=== PATIENT | male | born 1980 | race Caucasian/White ===

== ENCOUNTER 2017-03-09 16:35 | Inpatient (IN) | payer MEDICARE, OTHER ==
[2017-03-09] MEDS: Gabapentin 300 MG CAP PO SCH (20:26)
[2017-03-09] MEDS: Zolpidem Tartrate 5 MG TAB PO SCH (20:26)
[2017-03-09] MEDS: METHADONE HCL PO SCH (20:27)
[2017-03-10] MEDS: METHADONE HCL PO SCH ×4 (03:09→21:11)
[2017-03-10] MEDS: Gabapentin 300 MG CAP PO SCH ×3 (09:42→21:12)
[2017-03-10] MEDS ORDERED: Loratadine 10 MG TAB PO PRN (17:57)
[2017-03-10] MEDS: Zolpidem Tartrate 5 MG TAB PO SCH (21:12)
[2017-03-11] MEDS: METHADONE HCL PO SCH ×4 (03:05→20:09)
[2017-03-11] MEDS: Gabapentin 300 MG CAP PO SCH ×3 (09:03→20:09)
[2017-03-11] MEDS: Zolpidem Tartrate 5 MG TAB PO SCH (20:09)
[2017-03-12] MEDS: METHADONE HCL PO SCH ×4 (02:47→21:08)
[2017-03-12] MEDS: Gabapentin 300 MG CAP PO SCH ×3 (09:26→21:08)
[2017-03-12] MEDS: Zolpidem Tartrate 5 MG TAB PO SCH (21:08)
[2017-03-12] MEDS: Acetaminophen 325 MG TAB PO PRN (22:55)
[2017-03-13] MEDS: METHADONE HCL PO SCH ×4 (03:11→20:58)
[2017-03-13] MEDS: Gabapentin 300 MG CAP PO SCH ×3 (08:06→20:50)
[2017-03-13] MEDS: Acetaminophen 325 MG TAB PO PRN (08:07)
[2017-03-13] MEDS: Saccharomyces boulardii 250 MG CAP PO SCH (08:07)
[2017-03-13] MEDS: Ondansetron ODT 4 MG TAB PO PRN (09:51)
[2017-03-13] MEDS: Zolpidem Tartrate 5 MG TAB PO SCH (20:50)
[2017-03-14] MEDS: METHADONE HCL PO SCH ×4 (02:59→21:04)
[2017-03-14] MEDS: Saccharomyces boulardii 250 MG CAP PO SCH (08:44)
[2017-03-14] MEDS: Gabapentin 300 MG CAP PO SCH ×3 (08:44→21:04)
[2017-03-14] MEDS: Ibuprofen 200 MG TAB PO PRN (13:19)
[2017-03-14] MEDS: Venlafaxine HCl 25 MG TAB PO SCH ×2 (14:25→21:04)
[2017-03-14] MEDS: Zolpidem Tartrate 5 MG TAB PO SCH (21:05)
[2017-03-15] MEDS: METHADONE HCL PO SCH ×4 (03:01→21:59)
[2017-03-15] MEDS: Gabapentin 300 MG CAP PO SCH ×3 (08:59→22:00)
[2017-03-15] MEDS: Saccharomyces boulardii 250 MG CAP PO SCH (09:00)
[2017-03-15] MEDS: Venlafaxine HCl 25 MG TAB PO SCH ×3 (09:00→22:00)
[2017-03-15] MEDS: Zolpidem Tartrate 5 MG TAB PO SCH (21:59)
[2017-03-16] MEDS: Ibuprofen 200 MG TAB PO PRN ×2 (00:07→23:36)
[2017-03-16] MEDS: METHADONE HCL PO SCH ×4 (02:14→20:36)
[2017-03-16] MEDS: Gabapentin 300 MG CAP PO SCH ×3 (09:32→20:36)
[2017-03-16] MEDS: Venlafaxine HCl 25 MG TAB PO SCH ×3 (09:33→20:36)
[2017-03-16] MEDS: Saccharomyces boulardii 250 MG CAP PO SCH (09:34)
[2017-03-16] MEDS: Zolpidem Tartrate 5 MG TAB PO SCH (20:36)
[2017-03-17] MEDS: METHADONE HCL PO SCH ×4 (03:13→20:34)
[2017-03-17] MEDS: Gabapentin 300 MG CAP PO SCH ×3 (09:00→20:34)
[2017-03-17] MEDS: Saccharomyces boulardii 250 MG CAP PO SCH (09:01)
[2017-03-17] MEDS: Venlafaxine HCl 25 MG TAB PO SCH ×3 (09:01→20:34)
[2017-03-17] MEDS: Zolpidem Tartrate 5 MG TAB PO SCH (20:34)
[2017-03-18] MEDS: METHADONE HCL PO SCH ×4 (02:58→20:34)
[2017-03-18] MEDS: Venlafaxine HCl 25 MG TAB PO SCH ×3 (10:02→20:33)
[2017-03-18] MEDS: Gabapentin 300 MG CAP PO SCH ×3 (10:02→20:34)
[2017-03-18] MEDS: Saccharomyces boulardii 250 MG CAP PO SCH (10:02)
[2017-03-18] MEDS: Zolpidem Tartrate 5 MG TAB PO SCH (20:30)
[2017-03-19] MEDS: ALPRAZolam 0.5 MG TAB PO PRN ×2 (00:32→23:13)
[2017-03-19] MEDS: METHADONE HCL PO SCH ×4 (03:10→21:25)
[2017-03-19] MEDS: Gabapentin 300 MG CAP PO SCH ×3 (08:42→21:28)
[2017-03-19] MEDS: Saccharomyces boulardii 250 MG CAP PO SCH (08:43)
[2017-03-19] MEDS: Venlafaxine HCl 25 MG TAB PO SCH ×3 (08:43→21:25)
[2017-03-19] MEDS: Ibuprofen 200 MG TAB PO PRN (18:33)
[2017-03-19] MEDS: Zolpidem Tartrate 5 MG TAB PO SCH (21:26)
[2017-03-20] MEDS: METHADONE HCL PO SCH ×4 (03:04→21:41)
[2017-03-20] MEDS: Saccharomyces boulardii 250 MG CAP PO SCH (08:10)
[2017-03-20] MEDS: Venlafaxine HCl 25 MG TAB PO SCH ×3 (08:11→21:41)
[2017-03-20] MEDS: Gabapentin 300 MG CAP PO SCH ×3 (08:11→21:41)
[2017-03-20] MEDS: ALPRAZolam 0.5 MG TAB PO PRN (16:51)
[2017-03-20] MEDS: Zolpidem Tartrate 5 MG TAB PO SCH (21:41)
[2017-03-21] MEDS: METHADONE HCL PO SCH ×4 (03:29→21:12)
[2017-03-21] MEDS: Gabapentin 300 MG CAP PO SCH ×3 (08:49→21:14)
[2017-03-21] MEDS: Venlafaxine HCl 25 MG TAB PO SCH ×3 (08:49→21:13)
[2017-03-21] MEDS: Saccharomyces boulardii 250 MG CAP PO SCH (08:49)
[2017-03-21] MEDS: ALPRAZolam 0.5 MG TAB PO PRN ×2 (11:49→22:35)
[2017-03-21] MEDS: Zolpidem Tartrate 5 MG TAB PO SCH (21:14)
[2017-03-21] MEDS: Ibuprofen 200 MG TAB PO PRN (23:36)
[2017-03-22] MEDS: METHADONE HCL PO SCH ×4 (03:18→20:47)
[2017-03-22] MEDS: Ondansetron ODT 4 MG TAB PO PRN (06:29)
[2017-03-22] MEDS: Saccharomyces boulardii 250 MG CAP PO SCH (08:57)
[2017-03-22] MEDS: Venlafaxine HCl 25 MG TAB PO SCH ×3 (08:57→20:47)
[2017-03-22] MEDS: Gabapentin 300 MG CAP PO SCH ×3 (08:58→20:47)
[2017-03-22] MEDS: ALPRAZolam 0.5 MG TAB PO PRN ×2 (09:06→15:59)
[2017-03-22] MEDS: Zolpidem Tartrate 5 MG TAB PO SCH (20:47)
[2017-03-23] MEDS: METHADONE HCL PO SCH ×4 (02:32→20:33)
[2017-03-23] MEDS: ALPRAZolam 0.5 MG TAB PO PRN ×3 (05:32→20:35)
[2017-03-23] MEDS: Saccharomyces boulardii 250 MG CAP PO SCH (09:33)
[2017-03-23] MEDS: Venlafaxine HCl 25 MG TAB PO SCH ×3 (09:33→20:34)
[2017-03-23] MEDS: Gabapentin 300 MG CAP PO SCH ×3 (09:34→20:34)
[2017-03-23] MEDS: Zolpidem Tartrate 5 MG TAB PO SCH (20:34)
[2017-03-24] MEDS: METHADONE HCL PO SCH ×4 (02:56→20:22)
[2017-03-24] MEDS: Gabapentin 300 MG CAP PO SCH ×3 (09:01→20:23)
[2017-03-24] MEDS: Venlafaxine HCl 25 MG TAB PO SCH ×3 (09:02→20:22)
[2017-03-24] MEDS: Saccharomyces boulardii 250 MG CAP PO SCH (09:02)
[2017-03-24] MEDS: ALPRAZolam 0.5 MG TAB PO PRN ×2 (09:08→20:22)
[2017-03-24] MEDS: Zolpidem Tartrate 5 MG TAB PO SCH (20:22)
[2017-03-25] MEDS: METHADONE HCL PO SCH ×5 (02:54→20:30)
[2017-03-25] MEDS: Gabapentin 300 MG CAP PO SCH ×3 (09:00→20:30)
[2017-03-25] MEDS: Venlafaxine HCl 25 MG TAB PO SCH ×3 (09:00→20:30)
[2017-03-25] MEDS: Saccharomyces boulardii 250 MG CAP PO SCH (09:01)
[2017-03-25] MEDS: ALPRAZolam 0.5 MG TAB PO PRN ×3 (09:04→20:30)
[2017-03-25] MEDS: Ibuprofen 200 MG TAB PO PRN (15:47)
[2017-03-25] MEDS: Zolpidem Tartrate 5 MG TAB PO SCH (20:31)
[2017-03-26] MEDS: METHADONE HCL PO SCH ×4 (02:55→20:40)
[2017-03-26] MEDS: Ibuprofen 200 MG TAB PO PRN ×3 (03:37→22:27)
[2017-03-26] MEDS: Saccharomyces boulardii 250 MG CAP PO SCH (09:47)
[2017-03-26] MEDS: Gabapentin 300 MG CAP PO SCH ×3 (09:48→20:43)
[2017-03-26] MEDS: Venlafaxine HCl 25 MG TAB PO SCH ×3 (09:48→20:41)
[2017-03-26] MEDS: ALPRAZolam 0.5 MG TAB PO PRN ×2 (09:53→14:58)
[2017-03-26] MEDS: Zolpidem Tartrate 5 MG TAB PO SCH (20:41)
[2017-03-26] MEDS: tiZANidine HCl 4 MG TAB PO PRN (22:27)
[2017-03-27] MEDS: METHADONE HCL PO SCH ×4 (02:46→21:34)
[2017-03-27] MEDS: Gabapentin 300 MG CAP PO SCH ×3 (07:48→20:21)
[2017-03-27] MEDS: tiZANidine HCl 4 MG TAB PO PRN ×2 (07:49→17:10)
[2017-03-27] MEDS: Venlafaxine HCl 25 MG TAB PO SCH ×3 (07:49→20:21)
[2017-03-27] MEDS: Saccharomyces boulardii 250 MG CAP PO SCH (07:49)
[2017-03-27] MEDS: Ibuprofen 200 MG TAB PO PRN ×2 (10:13→22:14)
[2017-03-27] MEDS: ALPRAZolam 0.5 MG TAB PO PRN (11:58)
[2017-03-27] MEDS: Zolpidem Tartrate 5 MG TAB PO SCH (20:20)
[2017-03-27] MEDS: Acetaminophen 325 MG TAB PO PRN (20:22)
[2017-03-28] MEDS: METHADONE HCL PO SCH ×4 (03:02→20:26)
[2017-03-28] MEDS: ALPRAZolam 0.5 MG TAB PO PRN ×2 (03:02→20:27)
[2017-03-28] MEDS: Venlafaxine HCl 25 MG TAB PO SCH ×3 (09:11→20:26)
[2017-03-28] MEDS: Saccharomyces boulardii 250 MG CAP PO SCH (09:12)
[2017-03-28] MEDS: Gabapentin 300 MG CAP PO SCH ×3 (09:12→20:27)
[2017-03-28] MEDS: tiZANidine HCl 4 MG TAB PO PRN ×2 (09:16→17:26)
[2017-03-28] MEDS: Ibuprofen 200 MG TAB PO PRN ×2 (11:48→23:44)
[2017-03-28] MEDS: Zolpidem Tartrate 5 MG TAB PO SCH (20:27)
[2017-03-29] MEDS: METHADONE HCL PO SCH ×4 (02:24→20:52)
[2017-03-29] MEDS: tiZANidine HCl 4 MG TAB PO PRN ×3 (02:25→23:42)
[2017-03-29] MEDS: Gabapentin 300 MG CAP PO SCH ×3 (09:01→20:52)
[2017-03-29] MEDS: Saccharomyces boulardii 250 MG CAP PO SCH (09:01)
[2017-03-29] MEDS: Venlafaxine HCl 25 MG TAB PO SCH ×3 (09:01→20:52)
[2017-03-29] MEDS: ALPRAZolam 0.5 MG TAB PO PRN ×3 (09:02→20:52)
[2017-03-29] MEDS: Acetaminophen 325 MG TAB PO PRN (12:37)
[2017-03-29] MEDS: Ibuprofen 200 MG TAB PO PRN (17:44)
[2017-03-29] MEDS: Zolpidem Tartrate 5 MG TAB PO SCH (20:52)
--- NOTE | 2017-03-29 23:24 | HP ---
DATE OF ADMISSION: 03/09/2017 CHIEF COMPLAINT: Stage IV decubitus sacral ulcer. HISTORY OF PRESENT ILLNESS: A 36-year-old paraplegic male who was admitted and treated at [facility] in [place] for sepsis secondary to urinary tract infection and recurrent sacral decubitus ulcer. He required IV antibiotics and consultation from both Infectious Disease and General Surgery. As the patient improved his antibiotics were transitioned from IV to p.o. and it was advised for him to continue treatment via wound VAC with no surgical debridement. Imaging revealed no concern for osteomyelitis. As noted, he has been transferred to our facility to have further wound care and wound VAC, which will be changed every Monday, Monday, Monday. He will need to complete a 1 week course of p.o. levofloxacin as directed. The patient typically self- catheterizes secondary to neurogenic bladder; however, we will continue Smith for his voiding control. At present, the patient reports to be doing fairly well overall with somewhat of decreased appetite; however, is afebrile and comfortable. He has good insight into his current swing bed admission with a family goal to achieve as much wound healing as possible secondary to the recurrent status of this sacral decubitus ulcers. PAST MEDICAL HISTORY: Lower extremity paraplegia, neuropathy, insomnia, anxiety , or depression. PAST SURGICAL HISTORY: Back surgery several years ago. FAMILY HISTORY: Noncontributory. SOCIAL HISTORY: Denies alcohol or illicit drug use. He does use a vape. ALLERGIES: None. CURRENT MEDICATIONS: Gabapentin 300 mg p.o. t.i.d., levofloxacin 750 mg p.o. daily x1 week, methadone 20 mg p.o. q.6 hours, venlafaxine 50 mg p.o. t.i.d., zolpidem 10 mg p.o. at bedtime. REVIEW OF SYSTEMS: General: Denies fever. Ear, Nose, and Throat: Denies sore throat, nasal drainage or congestion. Cardiovascular: Denies chest pain or palpitations. Respiratory: Denies shortness of breath or cough. Gastrointestinal: Denies abdominal pain, complains of nausea. Genitourinary: Denies hematuria. Musculoskeletal: Denies joint swelling. Dermatologic: Denies rash. Complains of chronic sacral decubitus ulcers. Neurologic: Denies headache. LABORATORY DATA: None pending. PHYSICAL EXAMINATION: VITAL SIGNS: 97.9, 97% RA, 16, 97, 107/72 GENERAL: The patient is alert and oriented, in no acute distress. FACE: No asymmetry. EYES: Conjunctivae are clear. Extraocular muscles are intact bilaterally with no discharge. HEENT: Within normal limits. Oral cavity moist mucous membranes. NECK/THYROID: Supple, full range of motion. No lymphadenopathy, no meningeal signs. CARDIOVASCULAR: Regular rate and rhythm. Normal S1, S2. No murmurs, rubs, or gallops. RESPIRATORY: Clear to auscultation bilaterally without wheezes, rales, or rhonchi. GASTROINTESTINAL: Soft, nontender to palpation, no organomegaly. EXTREMITIES: He has muscles wasting with atrophy to the bilateral lower extremities. GENITOURINARY: Smith is in place. SKIN: Stage IV sacral decubitus ulcers with clean and dry margins. NEUROLOGIC: Nonfocal with cranial nerves II-XII grossly intact. ASSESSMENT AND PLAN: 1. Stage IV sacral decubitus ulcers. Patient will be followed by wound care with placement of wound VAC and changes scheduled Monday, Monday, Monday. We will complete the specified course of Levaquin 750 mg p.o. daily x1 week. 2. Neurogenic bladder. We will continue Smith catheter. He typically self- caths at home. 3. Insomnia. We will continue zolpidem for this 4. anxiety, depression. We will continue the patient's SNRI and provide benzodiazepine therapy as needed. 4. Nausea. We will provide Zofran p.r.n. 5. Paraplegia. The patient is mobile with use of a wheelchair. CODE STATUS: FULL CODE. MTDD
[2017-03-30] MEDS: METHADONE HCL PO SCH ×3 (03:05→18:33)
[2017-03-30] MEDS: ALPRAZolam 0.5 MG TAB PO PRN ×3 (09:28→21:46)
[2017-03-30] MEDS: Saccharomyces boulardii 250 MG CAP PO SCH (09:28)
[2017-03-30] MEDS: Gabapentin 300 MG CAP PO SCH ×3 (09:28→20:15)
[2017-03-30] MEDS: Venlafaxine HCl 25 MG TAB PO SCH ×3 (09:29→20:16)
[2017-03-30] MEDS: tiZANidine HCl 4 MG TAB PO PRN (11:09)
[2017-03-30] MEDS ORDERED: METHadone HCl 10 MG TAB PO SCH (15:15)
[2017-03-30] MEDS: METHadone HCl 10 MG TAB PO SCH ×2 (15:40→20:15)
[2017-03-30] MEDS: Ibuprofen 200 MG TAB PO PRN (17:46)
[2017-03-30] MEDS: Zolpidem Tartrate 5 MG TAB PO SCH (20:17)
[2017-03-31] MEDS: METHadone HCl 10 MG TAB PO SCH ×4 (03:16→20:51)
[2017-03-31] MEDS: ALPRAZolam 0.5 MG TAB PO PRN ×4 (03:17→20:52)
[2017-03-31] MEDS: Gabapentin 300 MG CAP PO SCH ×3 (10:05→20:51)
[2017-03-31] MEDS: Saccharomyces boulardii 250 MG CAP PO SCH (10:07)
[2017-03-31] MEDS: Venlafaxine HCl 25 MG TAB PO SCH ×3 (10:07→20:52)
[2017-03-31] MEDS: tiZANidine HCl 4 MG TAB PO PRN ×3 (11:20→23:02)
[2017-03-31] MEDS: Zolpidem Tartrate 5 MG TAB PO SCH (20:53)
[2017-04-01] MEDS: ALPRAZolam 0.5 MG TAB PO PRN ×2 (03:10→21:15)
[2017-04-01] MEDS: METHadone HCl 10 MG TAB PO SCH ×4 (03:11→21:12)
[2017-04-01] MEDS: Venlafaxine HCl 25 MG TAB PO SCH ×3 (08:27→21:14)
[2017-04-01] MEDS: Gabapentin 300 MG CAP PO SCH ×3 (08:28→21:12)
[2017-04-01] MEDS: Saccharomyces boulardii 250 MG CAP PO SCH (08:28)
[2017-04-01] MEDS: Ondansetron ODT 4 MG TAB PO PRN (10:27)
[2017-04-01] MEDS: tiZANidine HCl 4 MG TAB PO PRN (17:07)
[2017-04-01] MEDS: Zolpidem Tartrate 5 MG TAB PO SCH (21:15)
[2017-04-01] MEDS: Ibuprofen 200 MG TAB PO PRN (23:18)
[2017-04-02] MEDS: tiZANidine HCl 4 MG TAB PO PRN ×2 (01:12→10:55)
[2017-04-02] MEDS: METHadone HCl 10 MG TAB PO SCH ×4 (03:00→20:32)
[2017-04-02] MEDS: Saccharomyces boulardii 250 MG CAP PO SCH (08:53)
[2017-04-02] MEDS: Gabapentin 300 MG CAP PO SCH ×3 (08:53→20:32)
[2017-04-02] MEDS: Venlafaxine HCl 25 MG TAB PO SCH ×3 (08:53→20:31)
[2017-04-02] MEDS: ALPRAZolam 0.5 MG TAB PO PRN ×2 (16:56→22:52)
[2017-04-02] MEDS: Zolpidem Tartrate 5 MG TAB PO SCH (20:33)
[2017-04-03] MEDS: METHadone HCl 10 MG TAB PO SCH ×4 (02:51→20:44)
[2017-04-03] MEDS: Gabapentin 300 MG CAP PO SCH ×3 (09:17→20:43)
[2017-04-03] MEDS: Saccharomyces boulardii 250 MG CAP PO SCH (09:18)
[2017-04-03] MEDS: Venlafaxine HCl 25 MG TAB PO SCH ×3 (09:18→20:40)
[2017-04-03] MEDS: ALPRAZolam 0.5 MG TAB PO PRN ×2 (09:19→23:03)
[2017-04-03 12:02] LABS: Bilirubin Negative (Negative); Blood, Urine Negative (Negative); Clarity Clear (Clear); Glucose, Urine (Dipstick) Negative (Negative); Leukocyte Small (Negative); Nitrite Negative (Negative); Protein, Urine (Dipstick) Negative (Neg-Trace); Urobilinogen 0.2 mg/dL (0.2-1.0)
[2017-04-03 12:09] LABS: Bacteria/HPF None Seen HPF (None Seen); RBC/HPF None Seen HPF (0-3); Squamous Epithelial 0-3 HPF (0-3); WBC/HPF 0-3 HPF (0-3)
[2017-04-03] MEDS: tiZANidine HCl 4 MG TAB PO PRN (18:54)
[2017-04-03] MEDS: Ciprofloxacin 500 MG TAB PO SCH (20:44)
[2017-04-03] MEDS: Zolpidem Tartrate 5 MG TAB PO SCH (20:44)
[2017-04-04] MEDS: METHadone HCl 10 MG TAB PO SCH ×4 (03:03→20:45)
[2017-04-04] MEDS: Ciprofloxacin 500 MG TAB PO SCH ×2 (05:38→20:44)
[2017-04-04] MEDS: Saccharomyces boulardii 250 MG CAP PO SCH (08:28)
[2017-04-04] MEDS: Gabapentin 300 MG CAP PO SCH ×3 (08:28→20:45)
[2017-04-04] MEDS: Venlafaxine HCl 25 MG TAB PO SCH ×3 (09:51→20:45)
[2017-04-04] MEDS: ALPRAZolam 0.5 MG TAB PO PRN ×2 (10:31→23:00)
[2017-04-04] MEDS: tiZANidine HCl 4 MG TAB PO PRN (13:37)
[2017-04-04] MEDS: Zolpidem Tartrate 5 MG TAB PO SCH (20:44)
[2017-04-05] MEDS: METHadone HCl 10 MG TAB PO SCH ×4 (03:09→20:49)
[2017-04-05] MEDS: Ciprofloxacin 500 MG TAB PO SCH (05:35)
[2017-04-05] MEDS: tiZANidine HCl 4 MG TAB PO PRN ×2 (05:35→17:19)
[2017-04-05] MEDS: Venlafaxine HCl 25 MG TAB PO SCH ×3 (09:06→20:50)
[2017-04-05] MEDS: Gabapentin 300 MG CAP PO SCH ×3 (09:06→20:53)
[2017-04-05] MEDS: Saccharomyces boulardii 250 MG CAP PO SCH (09:07)
[2017-04-05] MEDS: ALPRAZolam 0.5 MG TAB PO PRN ×2 (13:07→22:53)
[2017-04-05] MEDS: Zolpidem Tartrate 5 MG TAB PO SCH (20:52)
[2017-04-06] MEDS: tiZANidine HCl 4 MG TAB PO PRN ×2 (02:27→16:30)
[2017-04-06] MEDS: METHadone HCl 10 MG TAB PO SCH ×4 (03:24→20:44)
[2017-04-06] MEDS: Venlafaxine HCl 25 MG TAB PO SCH ×3 (08:51→20:45)
[2017-04-06] MEDS: Saccharomyces boulardii 250 MG CAP PO SCH (08:51)
[2017-04-06] MEDS: Gabapentin 300 MG CAP PO SCH ×3 (08:52→20:45)
[2017-04-06] MEDS: ALPRAZolam 0.5 MG TAB PO PRN ×2 (11:08→22:47)
[2017-04-06] MEDS ORDERED: Iopamidol 370 76% 100 ML VIAL ONE (11:24)
[2017-04-06] MEDS: diphenhydrAMINE 12.5 MG/5 ML UDCUP PO PRN ×2 (11:28→20:50)
[2017-04-06] MEDS ORDERED: diphenhydrAMINE 12.5 MG/5 ML UDCUP ONE ×2 (11:31→20:49)
[2017-04-06] MEDS: Zolpidem Tartrate 5 MG TAB PO SCH (20:44)
[2017-04-07] MEDS: METHadone HCl 10 MG TAB PO SCH ×4 (02:43→20:15)
[2017-04-07] MEDS: Gabapentin 300 MG CAP PO SCH ×3 (09:42→20:17)
[2017-04-07] MEDS: Venlafaxine HCl 25 MG TAB PO SCH ×3 (09:42→20:16)
[2017-04-07] MEDS: clonazePAM 0.5 MG TAB PO SCH ×2 (09:42→20:16)
[2017-04-07] MEDS: Saccharomyces boulardii 250 MG CAP PO SCH (09:42)
[2017-04-07] MEDS ORDERED: diphenhydrAMINE 12.5 MG/5 ML UDCUP ONE ×2 (10:42→19:28)
[2017-04-07] MEDS: diphenhydrAMINE 12.5 MG/5 ML UDCUP PO PRN ×2 (10:47→20:15)
[2017-04-07] MEDS: Zolpidem Tartrate 5 MG TAB PO SCH (20:17)
[2017-04-08] MEDS: METHadone HCl 10 MG TAB PO SCH ×4 (03:09→20:24)
[2017-04-08] MEDS: diphenhydrAMINE 25 MG CAP PO PRN ×2 (05:05→18:10)
[2017-04-08] MEDS: Venlafaxine HCl 25 MG TAB PO SCH ×3 (08:39→20:25)
[2017-04-08] MEDS: Saccharomyces boulardii 250 MG CAP PO SCH (08:39)
[2017-04-08] MEDS: Gabapentin 300 MG CAP PO SCH ×3 (08:39→20:25)
[2017-04-08] MEDS: clonazePAM 0.5 MG TAB PO SCH ×2 (08:39→20:26)
[2017-04-08] MEDS: tiZANidine HCl 4 MG TAB PO PRN (10:43)
[2017-04-08] MEDS: Zolpidem Tartrate 5 MG TAB PO SCH (20:25)
[2017-04-09] MEDS: METHadone HCl 10 MG TAB PO SCH ×4 (02:52→20:57)
[2017-04-09] MEDS: diphenhydrAMINE 25 MG CAP PO PRN (08:14)
[2017-04-09] MEDS: clonazePAM 0.5 MG TAB PO SCH ×2 (08:15→20:56)
[2017-04-09] MEDS: Venlafaxine HCl 25 MG TAB PO SCH ×3 (08:15→20:58)
[2017-04-09] MEDS: Saccharomyces boulardii 250 MG CAP PO SCH (08:15)
[2017-04-09] MEDS: Gabapentin 300 MG CAP PO SCH ×3 (08:16→20:59)
[2017-04-09] MEDS: Zolpidem Tartrate 5 MG TAB PO SCH (20:58)
[2017-04-10] MEDS: METHadone HCl 10 MG TAB PO SCH ×4 (02:46→20:48)
[2017-04-10] MEDS: tiZANidine HCl 4 MG TAB PO PRN (04:52)
[2017-04-10] MEDS: diphenhydrAMINE 25 MG CAP PO PRN ×2 (06:20→16:10)
[2017-04-10] MEDS: Saccharomyces boulardii 250 MG CAP PO SCH (08:23)
[2017-04-10] MEDS: Gabapentin 300 MG CAP PO SCH ×3 (08:23→20:47)
[2017-04-10] MEDS: Venlafaxine HCl 25 MG TAB PO SCH ×3 (09:17→20:47)
[2017-04-10] MEDS: clonazePAM 0.5 MG TAB PO SCH ×2 (09:18→20:47)
[2017-04-10] MEDS: Zolpidem Tartrate 5 MG TAB PO SCH (20:49)
[2017-04-11] MEDS: METHadone HCl 10 MG TAB PO SCH ×4 (02:54→20:26)
[2017-04-11] MEDS: Venlafaxine HCl 25 MG TAB PO SCH ×3 (09:10→20:27)
[2017-04-11] MEDS: Saccharomyces boulardii 250 MG CAP PO SCH (09:11)
[2017-04-11] MEDS: clonazePAM 0.5 MG TAB PO SCH ×2 (09:11→20:27)
[2017-04-11] MEDS: Gabapentin 300 MG CAP PO SCH ×3 (09:11→20:27)
[2017-04-11] MEDS: tiZANidine HCl 4 MG TAB PO PRN (17:47)
[2017-04-11] MEDS: Zolpidem Tartrate 5 MG TAB PO SCH (20:27)
[2017-04-12] MEDS: METHADONE HCL 10 MG PO SCH ×2 (03:11→09:05)
[2017-04-12] MEDS: diphenhydrAMINE 25 MG CAP PO PRN (03:13)
[2017-04-12] MEDS: clonazePAM 0.5 MG TAB PO SCH ×2 (09:07→20:10)
[2017-04-12] MEDS: Venlafaxine HCl 25 MG TAB PO SCH ×3 (09:07→20:09)
[2017-04-12] MEDS: Gabapentin 300 MG CAP PO SCH ×3 (09:07→20:10)
[2017-04-12] MEDS: Saccharomyces boulardii 250 MG CAP PO SCH (09:07)
[2017-04-12] MEDS: METHadone HCl 10 MG TAB PO SCH ×2 (14:58→20:10)
[2017-04-12] MEDS: Zolpidem Tartrate 5 MG TAB PO SCH (20:10)
[2017-04-12] MEDS: tiZANidine HCl 4 MG TAB PO PRN (22:08)
[2017-04-13] MEDS: METHadone HCl 10 MG TAB PO SCH ×4 (03:00→21:16)
[2017-04-13] MEDS: Gabapentin 300 MG CAP PO SCH ×3 (09:35→21:15)
[2017-04-13] MEDS: Saccharomyces boulardii 250 MG CAP PO SCH (09:35)
[2017-04-13] MEDS: clonazePAM 0.5 MG TAB PO SCH ×2 (09:35→21:15)
[2017-04-13] MEDS: Venlafaxine HCl 25 MG TAB PO SCH ×3 (09:35→21:15)
[2017-04-13] MEDS: diphenhydrAMINE 25 MG CAP PO PRN (10:42)
[2017-04-13] MEDS: tiZANidine HCl 4 MG TAB PO PRN (18:41)
[2017-04-13] MEDS ORDERED: METHadone HCl 10 MG TAB PO SCH (21:00)
[2017-04-13] MEDS: Zolpidem Tartrate 5 MG TAB PO SCH (21:15)
[2017-04-13] MEDS: Ibuprofen 200 MG TAB PO PRN (22:48)
[2017-04-14] MEDS: METHadone HCl 10 MG TAB PO SCH ×4 (03:08→21:22)
[2017-04-14] MEDS: diphenhydrAMINE 25 MG CAP PO PRN ×2 (05:40→22:39)
[2017-04-14] MEDS: clonazePAM 0.5 MG TAB PO SCH ×2 (08:43→21:21)
[2017-04-14] MEDS: Gabapentin 300 MG CAP PO SCH ×3 (08:43→21:21)
[2017-04-14] MEDS: Venlafaxine HCl 25 MG TAB PO SCH ×3 (08:45→21:25)
[2017-04-14] MEDS: Saccharomyces boulardii 250 MG CAP PO SCH (08:46)
[2017-04-14] MEDS: tiZANidine HCl 4 MG TAB PO PRN (17:03)
[2017-04-14] MEDS: Zolpidem Tartrate 5 MG TAB PO SCH (21:25)
[2017-04-15] MEDS: tiZANidine HCl 4 MG TAB PO PRN ×2 (00:27→18:10)
[2017-04-15] MEDS: METHadone HCl 10 MG TAB PO SCH ×4 (03:08→21:01)
[2017-04-15] MEDS: clonazePAM 0.5 MG TAB PO SCH ×2 (08:45→21:00)
[2017-04-15] MEDS: diphenhydrAMINE 25 MG CAP PO PRN (08:45)
[2017-04-15] MEDS: Gabapentin 300 MG CAP PO SCH ×3 (08:46→21:01)
[2017-04-15] MEDS: Saccharomyces boulardii 250 MG CAP PO SCH (08:47)
[2017-04-15] MEDS: Venlafaxine HCl 25 MG TAB PO SCH ×3 (10:42→21:00)
[2017-04-15] MEDS: Zolpidem Tartrate 5 MG TAB PO SCH (21:01)
[2017-04-16] MEDS: METHadone HCl 10 MG TAB PO SCH ×4 (03:07→21:28)
[2017-04-16] MEDS: Gabapentin 300 MG CAP PO SCH ×3 (08:45→21:27)
[2017-04-16] MEDS: Venlafaxine HCl 25 MG TAB PO SCH ×3 (08:45→21:26)
[2017-04-16] MEDS: clonazePAM 0.5 MG TAB PO SCH ×2 (08:46→21:27)
[2017-04-16] MEDS: Saccharomyces boulardii 250 MG CAP PO SCH (08:46)
[2017-04-16] MEDS: Ibuprofen 200 MG TAB PO PRN (13:48)
[2017-04-16] MEDS: tiZANidine HCl 4 MG TAB PO PRN (18:27)
[2017-04-16] MEDS: Loperamide HCl 2 MG CAP PO PRN (18:31)
[2017-04-16] MEDS: Zolpidem Tartrate 5 MG TAB PO SCH (21:27)
[2017-04-16] MEDS: diphenhydrAMINE 25 MG CAP PO PRN (23:35)
[2017-04-17] MEDS: tiZANidine HCl 4 MG TAB PO PRN ×2 (02:19→11:40)
[2017-04-17] MEDS: METHadone HCl 10 MG TAB PO SCH ×4 (03:31→21:35)
[2017-04-17] MEDS: Saccharomyces boulardii 250 MG CAP PO SCH (08:24)
[2017-04-17] MEDS: clonazePAM 0.5 MG TAB PO SCH ×2 (08:24→21:28)
[2017-04-17] MEDS: Gabapentin 300 MG CAP PO SCH ×3 (08:24→21:35)
[2017-04-17] MEDS: Venlafaxine HCl 25 MG TAB PO SCH ×3 (08:25→21:35)
[2017-04-17] MEDS: Loperamide HCl 2 MG CAP PO PRN ×2 (11:50→15:42)
[2017-04-17] MEDS: hydrOXYzine 25 MG TAB PO PRN (18:23)
[2017-04-17] MEDS: Zolpidem Tartrate 5 MG TAB PO SCH (21:35)
[2017-04-18] MEDS: METHadone HCl 10 MG TAB PO SCH ×4 (03:15→20:58)
[2017-04-18] MEDS: Gabapentin 300 MG CAP PO SCH ×3 (09:14→20:57)
[2017-04-18] MEDS: clonazePAM 0.5 MG TAB PO SCH ×2 (09:15→20:57)
[2017-04-18] MEDS: Venlafaxine HCl 25 MG TAB PO SCH ×3 (09:15→20:57)
[2017-04-18] MEDS: Saccharomyces boulardii 250 MG CAP PO SCH (09:16)
[2017-04-18] MEDS: hydrOXYzine 25 MG TAB PO PRN ×2 (11:05→19:15)
[2017-04-18] MEDS: Loperamide HCl 2 MG CAP PO PRN (11:05)
[2017-04-18] MEDS: Zolpidem Tartrate 5 MG TAB PO SCH (20:58)
[2017-04-18] MEDS: tiZANidine HCl 4 MG TAB PO PRN (23:12)
[2017-04-19] MEDS: METHadone HCl 10 MG TAB PO SCH ×4 (02:52→19:57)
[2017-04-19] MEDS: Saccharomyces boulardii 250 MG CAP PO SCH (08:42)
[2017-04-19] MEDS: Venlafaxine HCl 25 MG TAB PO SCH ×3 (08:42→19:56)
[2017-04-19] MEDS: clonazePAM 0.5 MG TAB PO SCH ×2 (08:43→19:56)
[2017-04-19] MEDS: Gabapentin 300 MG CAP PO SCH ×3 (08:43→19:57)
[2017-04-19] MEDS ORDERED: Loperamide HCl 2 MG CAP ONE ×2 (08:50→15:02)
[2017-04-19] MEDS: Loperamide HCl 2 MG CAP PO PRN ×2 (08:52→15:04)
[2017-04-19] MEDS: hydrOXYzine 25 MG TAB PO PRN ×2 (11:03→18:28)
[2017-04-19] MEDS: tiZANidine HCl 4 MG TAB PO PRN (15:59)
[2017-04-19] MEDS: Zolpidem Tartrate 5 MG TAB PO SCH (19:56)
[2017-04-20] MEDS: hydrOXYzine 25 MG TAB PO PRN ×3 (03:04→18:02)
[2017-04-20] MEDS: METHadone HCl 10 MG TAB PO SCH ×4 (03:04→20:29)
[2017-04-20] MEDS: Venlafaxine HCl 25 MG TAB PO SCH ×3 (09:09→20:28)
[2017-04-20] MEDS: clonazePAM 0.5 MG TAB PO SCH ×2 (09:09→20:29)
[2017-04-20] MEDS: Saccharomyces boulardii 250 MG CAP PO SCH (09:11)
[2017-04-20] MEDS: Gabapentin 300 MG CAP PO SCH ×3 (09:11→20:29)
[2017-04-20] MEDS: tiZANidine HCl 4 MG TAB PO PRN (14:25)
[2017-04-20] MEDS: Zolpidem Tartrate 5 MG TAB PO SCH (20:28)
[2017-04-21] MEDS: METHadone HCl 10 MG TAB PO SCH ×4 (03:00→20:56)
[2017-04-21] MEDS: hydrOXYzine 25 MG TAB PO PRN ×3 (03:02→18:45)
[2017-04-21] MEDS: Gabapentin 300 MG CAP PO SCH ×3 (08:45→20:56)
[2017-04-21] MEDS: clonazePAM 0.5 MG TAB PO SCH ×2 (08:47→20:56)
[2017-04-21] MEDS: Venlafaxine HCl 25 MG TAB PO SCH ×3 (08:47→20:55)
[2017-04-21] MEDS: Saccharomyces boulardii 250 MG CAP PO SCH (08:48)
[2017-04-21] MEDS: tiZANidine HCl 4 MG TAB PO PRN (15:42)
[2017-04-21] MEDS: Zolpidem Tartrate 5 MG TAB PO SCH (20:56)
[2017-04-22] MEDS: METHadone HCl 10 MG TAB PO SCH ×4 (03:12→20:57)
[2017-04-22] MEDS: hydrOXYzine 25 MG TAB PO PRN ×3 (03:16→18:54)
[2017-04-22] MEDS: clonazePAM 0.5 MG TAB PO SCH ×2 (09:37→20:57)
[2017-04-22] MEDS: Saccharomyces boulardii 250 MG CAP PO SCH (09:38)
[2017-04-22] MEDS: Gabapentin 300 MG CAP PO SCH ×3 (09:38→20:56)
[2017-04-22] MEDS: Venlafaxine HCl 25 MG TAB PO SCH ×3 (09:41→20:56)
[2017-04-22] MEDS: tiZANidine HCl 4 MG TAB PO PRN (13:18)
[2017-04-22] MEDS: Zolpidem Tartrate 5 MG TAB PO SCH (20:56)
[2017-04-23] MEDS: tiZANidine HCl 4 MG TAB PO PRN ×3 (01:07→22:28)
[2017-04-23] MEDS: METHadone HCl 10 MG TAB PO SCH ×4 (02:52→20:42)
[2017-04-23] MEDS: hydrOXYzine 25 MG TAB PO PRN ×3 (02:54→19:35)
[2017-04-23] MEDS: clonazePAM 0.5 MG TAB PO SCH ×2 (09:30→20:42)
[2017-04-23] MEDS: Venlafaxine HCl 25 MG TAB PO SCH ×3 (09:31→20:41)
[2017-04-23] MEDS: Gabapentin 300 MG CAP PO SCH ×3 (09:31→20:42)
[2017-04-23] MEDS: Saccharomyces boulardii 250 MG CAP PO SCH (09:32)
[2017-04-23] MEDS: Zolpidem Tartrate 5 MG TAB PO SCH (20:41)
[2017-04-24] MEDS: METHadone HCl 10 MG TAB PO SCH ×4 (03:00→20:27)
[2017-04-24] MEDS: hydrOXYzine 25 MG TAB PO PRN ×3 (03:24→19:02)
[2017-04-24] MEDS: Venlafaxine HCl 25 MG TAB PO SCH ×3 (10:46→20:26)
[2017-04-24] MEDS: clonazePAM 0.5 MG TAB PO SCH ×2 (10:49→20:27)
[2017-04-24] MEDS: Saccharomyces boulardii 250 MG CAP PO SCH (10:49)
[2017-04-24] MEDS: Gabapentin 300 MG CAP PO SCH ×3 (11:10→20:26)
[2017-04-24] MEDS: tiZANidine HCl 4 MG TAB PO PRN (17:19)
[2017-04-24] MEDS: Zolpidem Tartrate 5 MG TAB PO SCH (20:27)
[2017-04-25] MEDS: Ibuprofen 200 MG TAB PO PRN
[2017-04-25] MEDS: METHadone HCl 10 MG TAB PO SCH ×4 (03:06→20:39)
[2017-04-25] MEDS: hydrOXYzine 25 MG TAB PO PRN ×3 (03:07→19:10)
[2017-04-25] MEDS: clonazePAM 0.5 MG TAB PO SCH ×2 (08:30→20:37)
[2017-04-25] MEDS: Gabapentin 300 MG CAP PO SCH ×3 (08:38→20:38)
[2017-04-25] MEDS: Venlafaxine HCl 25 MG TAB PO SCH ×3 (08:41→20:38)
[2017-04-25] MEDS: Saccharomyces boulardii 250 MG CAP PO SCH (08:41)
[2017-04-25] MEDS: tiZANidine HCl 4 MG TAB PO PRN ×2 (10:09→23:05)
[2017-04-25] MEDS: Zolpidem Tartrate 5 MG TAB PO SCH (20:38)
[2017-04-26] MEDS: hydrOXYzine 25 MG TAB PO PRN ×3 (03:07→18:49)
[2017-04-26] MEDS: METHadone HCl 10 MG TAB PO SCH ×4 (03:09→20:35)
[2017-04-26] MEDS: Venlafaxine HCl 25 MG TAB PO SCH ×3 (10:32→20:34)
[2017-04-26] MEDS: clonazePAM 0.5 MG TAB PO SCH ×2 (10:33→20:34)
[2017-04-26] MEDS: Saccharomyces boulardii 250 MG CAP PO SCH (10:34)
[2017-04-26] MEDS: Gabapentin 300 MG CAP PO SCH ×3 (10:34→20:34)
[2017-04-26] MEDS ORDERED: Bisacodyl 10 MG SUPP PR PRN (13:28)
[2017-04-26] MEDS: Docusate 100 MG CAP PO PRN (15:16)
[2017-04-26] MEDS: tiZANidine HCl 4 MG TAB PO PRN (17:30)
[2017-04-26] MEDS: Zolpidem Tartrate 5 MG TAB PO SCH (20:34)
[2017-04-27] MEDS ORDERED: hydrOXYzine 25 MG TAB ONE (02:59)
[2017-04-27] MEDS: hydrOXYzine 25 MG TAB PO PRN ×3 (03:02→18:57)
[2017-04-27] MEDS: METHadone HCl 10 MG TAB PO SCH ×4 (03:03→21:24)
[2017-04-27] MEDS: clonazePAM 0.5 MG TAB PO SCH ×2 (08:56→21:26)
[2017-04-27] MEDS: Gabapentin 300 MG CAP PO SCH ×3 (08:57→21:25)
[2017-04-27] MEDS: Venlafaxine HCl 25 MG TAB PO SCH ×3 (08:57→21:25)
[2017-04-27] MEDS: Saccharomyces boulardii 250 MG CAP PO SCH (08:58)
[2017-04-27] MEDS: tiZANidine HCl 4 MG TAB PO PRN (12:37)
[2017-04-27] MEDS: Zolpidem Tartrate 5 MG TAB PO SCH (21:25)
[2017-04-28] MEDS: METHadone HCl 10 MG TAB PO SCH ×4 (03:05→20:56)
[2017-04-28] MEDS: hydrOXYzine 25 MG TAB PO PRN ×3 (03:06→18:45)
[2017-04-28] MEDS: Venlafaxine HCl 25 MG TAB PO SCH ×3 (09:00→20:56)
[2017-04-28] MEDS: clonazePAM 0.5 MG TAB PO SCH ×2 (09:00→20:56)
[2017-04-28] MEDS: Saccharomyces boulardii 250 MG CAP PO SCH (09:01)
[2017-04-28] MEDS: Gabapentin 300 MG CAP PO SCH ×3 (09:01→20:56)
[2017-04-28] MEDS: tiZANidine HCl 4 MG TAB PO PRN ×2 (13:32→23:10)
[2017-04-28] MEDS: Zolpidem Tartrate 5 MG TAB PO SCH (20:56)
[2017-04-29] MEDS: METHadone HCl 10 MG TAB PO SCH ×4 (02:56→21:18)
[2017-04-29] MEDS: hydrOXYzine 25 MG TAB PO PRN ×3 (03:03→20:16)
[2017-04-29] MEDS: Gabapentin 300 MG CAP PO SCH ×3 (09:16→21:20)
[2017-04-29] MEDS: clonazePAM 0.5 MG TAB PO SCH ×2 (09:16→21:19)
[2017-04-29] MEDS: Venlafaxine HCl 25 MG TAB PO SCH ×3 (09:18→21:19)
[2017-04-29] MEDS: Saccharomyces boulardii 250 MG CAP PO SCH (09:18)
[2017-04-29] MEDS: tiZANidine HCl 4 MG TAB PO PRN (13:32)
[2017-04-29] MEDS: Zolpidem Tartrate 5 MG TAB PO SCH (21:20)
[2017-04-30] MEDS: tiZANidine HCl 4 MG TAB PO PRN ×3 (00:38→23:08)
[2017-04-30] MEDS: METHadone HCl 10 MG TAB PO SCH ×4 (03:13→21:11)
[2017-04-30] MEDS: hydrOXYzine 25 MG TAB PO PRN ×3 (04:25→21:10)
[2017-04-30] MEDS: clonazePAM 0.5 MG TAB PO SCH ×2 (08:53→21:11)
[2017-04-30] MEDS: Venlafaxine HCl 25 MG TAB PO SCH ×3 (08:54→21:10)
[2017-04-30] MEDS: Gabapentin 300 MG CAP PO SCH ×3 (08:54→21:10)
[2017-04-30] MEDS: Saccharomyces boulardii 250 MG CAP PO SCH (08:55)
[2017-04-30] MEDS: Zolpidem Tartrate 5 MG TAB PO SCH (21:11)
[2017-05-01] MEDS: METHadone HCl 10 MG TAB PO SCH ×4 (03:04→21:05)
[2017-05-01] MEDS: hydrOXYzine 25 MG TAB PO PRN ×3 (05:07→21:05)
[2017-05-01] MEDS: clonazePAM 0.5 MG TAB PO SCH ×2 (09:42→21:04)
[2017-05-01] MEDS: Venlafaxine HCl 25 MG TAB PO SCH ×3 (09:42→21:04)
[2017-05-01] MEDS: Saccharomyces boulardii 250 MG CAP PO SCH (09:43)
[2017-05-01] MEDS: Gabapentin 300 MG CAP PO SCH ×3 (09:44→21:04)
[2017-05-01] MEDS: tiZANidine HCl 4 MG TAB PO PRN ×2 (11:34→23:16)
[2017-05-01] MEDS: Ibuprofen 200 MG TAB PO PRN (20:01)
[2017-05-01] MEDS: Zolpidem Tartrate 5 MG TAB PO SCH (21:05)
[2017-05-02] MEDS: METHadone HCl 10 MG TAB PO SCH ×4 (03:04→21:27)
[2017-05-02] MEDS: hydrOXYzine 25 MG TAB PO PRN ×3 (05:17→21:27)
[2017-05-02] MEDS: clonazePAM 0.5 MG TAB PO SCH ×2 (09:34→21:26)
[2017-05-02] MEDS: Gabapentin 300 MG CAP PO SCH ×3 (09:34→21:26)
[2017-05-02] MEDS: Venlafaxine HCl 25 MG TAB PO SCH ×3 (09:37→21:25)
[2017-05-02] MEDS: Saccharomyces boulardii 250 MG CAP PO SCH (09:40)
[2017-05-02] MEDS: Docusate 100 MG CAP PO PRN (13:34)
[2017-05-02] MEDS: tiZANidine HCl 4 MG TAB PO PRN (17:59)
[2017-05-02] MEDS: Zolpidem Tartrate 5 MG TAB PO SCH (22:42)
[2017-05-03] MEDS: Ibuprofen 200 MG TAB PO PRN ×2 (02:10→19:48)
[2017-05-03] MEDS: METHadone HCl 10 MG TAB PO SCH ×4 (03:11→20:52)
[2017-05-03] MEDS: tiZANidine HCl 4 MG TAB PO PRN ×3 (05:15→22:24)
[2017-05-03] MEDS: hydrOXYzine 25 MG TAB PO PRN ×3 (05:15→20:52)
[2017-05-03] MEDS: clonazePAM 0.5 MG TAB PO SCH ×2 (09:01→20:51)
[2017-05-03] MEDS: Venlafaxine HCl 25 MG TAB PO SCH ×3 (09:01→20:51)
[2017-05-03] MEDS: Saccharomyces boulardii 250 MG CAP PO SCH (09:01)
[2017-05-03] MEDS: Gabapentin 300 MG CAP PO SCH ×3 (09:01→20:51)
[2017-05-03] MEDS: Zolpidem Tartrate 5 MG TAB PO SCH (20:51)
[2017-05-04] MEDS: METHadone HCl 10 MG TAB PO SCH ×4 (02:56→20:51)
[2017-05-04] MEDS: tiZANidine HCl 4 MG TAB PO PRN ×3 (05:33→21:57)
[2017-05-04] MEDS: hydrOXYzine 25 MG TAB PO PRN ×3 (05:33→20:51)
[2017-05-04] MEDS: Gabapentin 300 MG CAP PO SCH ×3 (08:53→20:51)
[2017-05-04] MEDS: Saccharomyces boulardii 250 MG CAP PO SCH (08:54)
[2017-05-04] MEDS: Venlafaxine HCl 25 MG TAB PO SCH ×3 (08:54→20:50)
[2017-05-04] MEDS: clonazePAM 0.5 MG TAB PO SCH ×2 (08:54→20:50)
[2017-05-04] MEDS: Docusate 100 MG CAP PO PRN (12:56)
[2017-05-04] MEDS: Ibuprofen 200 MG TAB PO PRN (16:22)
[2017-05-04] MEDS: Zolpidem Tartrate 5 MG TAB PO SCH (20:51)
[2017-05-05] MEDS: METHadone HCl 10 MG TAB PO SCH ×4 (02:49→20:49)
[2017-05-05] MEDS: hydrOXYzine 25 MG TAB PO PRN ×3 (03:54→20:48)
[2017-05-05] MEDS: tiZANidine HCl 4 MG TAB PO PRN ×3 (05:09→20:48)
[2017-05-05] MEDS: Venlafaxine HCl 25 MG TAB PO SCH ×3 (08:36→20:48)
[2017-05-05] MEDS: Gabapentin 300 MG CAP PO SCH ×3 (08:37→20:48)
[2017-05-05] MEDS: Saccharomyces boulardii 250 MG CAP PO SCH (08:37)
[2017-05-05] MEDS: clonazePAM 0.5 MG TAB PO SCH ×2 (08:37→20:49)
[2017-05-05] MEDS: Zolpidem Tartrate 5 MG TAB PO SCH (20:48)
[2017-05-06] MEDS: METHadone HCl 10 MG TAB PO SCH ×4 (02:56→21:07)
[2017-05-06] MEDS: hydrOXYzine 25 MG TAB PO PRN ×3 (05:47→23:48)
[2017-05-06] MEDS: tiZANidine HCl 4 MG TAB PO PRN ×3 (05:47→23:48)
[2017-05-06] MEDS: Venlafaxine HCl 25 MG TAB PO SCH ×3 (08:11→21:05)
[2017-05-06] MEDS: Saccharomyces boulardii 250 MG CAP PO SCH (08:12)
[2017-05-06] MEDS: Gabapentin 300 MG CAP PO SCH ×3 (08:13→21:08)
[2017-05-06] MEDS: clonazePAM 0.5 MG TAB PO SCH ×2 (08:13→21:07)
[2017-05-06] MEDS: Docusate 100 MG CAP PO PRN (13:51)
[2017-05-06] MEDS: Zolpidem Tartrate 5 MG TAB PO SCH (21:06)
[2017-05-07] MEDS: METHadone HCl 10 MG TAB PO SCH ×4 (03:02→20:54)
[2017-05-07] MEDS: Saccharomyces boulardii 250 MG CAP PO SCH (08:35)
[2017-05-07] MEDS: Venlafaxine HCl 25 MG TAB PO SCH ×3 (08:35→20:53)
[2017-05-07] MEDS: Ibuprofen 200 MG TAB PO PRN ×2 (08:35→19:20)
[2017-05-07] MEDS: Gabapentin 300 MG CAP PO SCH ×3 (08:35→20:54)
[2017-05-07] MEDS: clonazePAM 0.5 MG TAB PO SCH ×2 (09:44→20:53)
[2017-05-07] MEDS: hydrOXYzine 25 MG TAB PO PRN ×2 (15:21→23:21)
[2017-05-07] MEDS: Docusate 100 MG CAP PO PRN (15:27)
[2017-05-07] MEDS: tiZANidine HCl 4 MG TAB PO PRN (19:21)
[2017-05-07] MEDS: Zolpidem Tartrate 5 MG TAB PO SCH (20:53)
[2017-05-08] MEDS: METHadone HCl 10 MG TAB PO SCH ×4 (02:54→20:47)
[2017-05-08] MEDS: tiZANidine HCl 4 MG TAB PO PRN ×2 (02:57→15:15)
[2017-05-08] MEDS: Venlafaxine HCl 25 MG TAB PO SCH ×3 (08:53→20:45)
[2017-05-08] MEDS: Gabapentin 300 MG CAP PO SCH ×3 (08:53→20:45)
[2017-05-08] MEDS: clonazePAM 0.5 MG TAB PO SCH ×2 (08:54→20:46)
[2017-05-08] MEDS: Saccharomyces boulardii 250 MG CAP PO SCH (08:55)
[2017-05-08] MEDS: busPIRone HCl 5 MG TAB PO SCH ×2 (08:55→20:47)
[2017-05-08] MEDS: hydrOXYzine 25 MG TAB PO PRN (08:59)
[2017-05-08] MEDS: Zolpidem Tartrate 5 MG TAB PO SCH (20:48)
[2017-05-09] MEDS: METHadone HCl 10 MG TAB PO SCH ×4 (03:02→20:43)
[2017-05-09] MEDS: clonazePAM 0.5 MG TAB PO SCH ×2 (08:51→20:46)
[2017-05-09] MEDS: busPIRone HCl 5 MG TAB PO SCH ×2 (08:51→20:45)
[2017-05-09] MEDS: Gabapentin 300 MG CAP PO SCH ×3 (08:52→20:45)
[2017-05-09] MEDS: Venlafaxine HCl 25 MG TAB PO SCH ×3 (08:54→20:45)
[2017-05-09] MEDS: Saccharomyces boulardii 250 MG CAP PO SCH (08:54)
[2017-05-09] MEDS: Zolpidem Tartrate 5 MG TAB PO SCH (20:46)
[2017-05-10] MEDS: METHadone HCl 10 MG TAB PO SCH ×4 (02:48→20:24)
[2017-05-10] MEDS: Ibuprofen 200 MG TAB PO PRN (03:31)
[2017-05-10] MEDS: Saccharomyces boulardii 250 MG CAP PO SCH (08:15)
[2017-05-10] MEDS: clonazePAM 0.5 MG TAB PO SCH ×2 (08:16→20:23)
[2017-05-10] MEDS: busPIRone HCl 5 MG TAB PO SCH ×2 (08:16→20:23)
[2017-05-10] MEDS: Venlafaxine HCl 25 MG TAB PO SCH ×3 (08:16→20:21)
[2017-05-10] MEDS: Gabapentin 300 MG CAP PO SCH ×3 (08:17→20:26)
[2017-05-10] MEDS: Zolpidem Tartrate 5 MG TAB PO SCH (20:28)
[2017-05-10] MEDS: hydrOXYzine 25 MG TAB PO PRN (22:44)
[2017-05-11] MEDS: METHadone HCl 10 MG TAB PO SCH ×4 (02:57→20:37)
[2017-05-11] MEDS: Venlafaxine HCl 25 MG TAB PO SCH ×3 (08:10→20:35)
[2017-05-11] MEDS: Gabapentin 300 MG CAP PO SCH ×3 (08:11→20:37)
[2017-05-11] MEDS: Saccharomyces boulardii 250 MG CAP PO SCH (08:11)
[2017-05-11] MEDS: clonazePAM 0.5 MG TAB PO SCH ×2 (08:11→20:37)
[2017-05-11] MEDS: busPIRone HCl 5 MG TAB PO SCH ×2 (08:11→20:39)
[2017-05-11] MEDS: Zolpidem Tartrate 5 MG TAB PO SCH (20:39)
[2017-05-11] MEDS: Ibuprofen 200 MG TAB PO PRN (20:40)
[2017-05-12] MEDS: hydrOXYzine 25 MG TAB PO PRN (01:32)
[2017-05-12] MEDS: METHadone HCl 10 MG TAB PO SCH ×4 (03:03→20:11)
[2017-05-12] MEDS: Venlafaxine HCl 25 MG TAB PO SCH ×3 (08:39→20:13)
[2017-05-12] MEDS: clonazePAM 0.5 MG TAB PO SCH ×2 (08:40→20:12)
[2017-05-12] MEDS: Gabapentin 300 MG CAP PO SCH ×3 (08:41→20:11)
[2017-05-12] MEDS: Saccharomyces boulardii 250 MG CAP PO SCH (08:41)
[2017-05-12] MEDS: busPIRone HCl 5 MG TAB PO SCH ×2 (08:41→20:12)
--- NOTE | 2017-05-12 13:18 | RAD ---
SACRUM AND COCCYX: DATE: 05/12/17. FINDINGS: Four views are submitted. There is a very large amount of overlying fecal material which partially o bscures some bony detail. Allowing for this, there was no sign of sacral fracture or area of bony de struction. The arcuate lines of the sacrum appear intact. The SI joints were unremarkable in appear ance. There appears to have been old trauma to the left inferior pubic ramus. There is no evidence of bony destruction here, however. On the lateral view, the sacrum and coccyx appear normal. Specif ically, there are no plain film findings of osteomyelitis. Incidentally noted is posterior fusion of the lower lumbar spine that runs through the L5 level. IMPRESSION: 1. No acute findings in the sacrum or coccyx. 2. Presumed old trauma to the left inferior pubic ramus. 3. Constipation. POS: [facility]
[2017-05-12] MEDS: Ibuprofen 200 MG TAB PO PRN (14:04)
[2017-05-12] MEDS: Zolpidem Tartrate 5 MG TAB PO SCH (20:12)
[2017-05-13] MEDS: METHadone HCl 10 MG TAB PO SCH ×4 (02:58→20:44)
[2017-05-13] MEDS: Venlafaxine HCl 25 MG TAB PO SCH ×3 (09:06→20:43)
[2017-05-13] MEDS: Gabapentin 300 MG CAP PO SCH ×3 (09:06→20:42)
[2017-05-13] MEDS: busPIRone HCl 5 MG TAB PO SCH ×2 (09:07→20:42)
[2017-05-13] MEDS: Saccharomyces boulardii 250 MG CAP PO SCH (09:07)
[2017-05-13] MEDS: clonazePAM 0.5 MG TAB PO SCH ×2 (09:07→20:44)
[2017-05-13] MEDS: Zolpidem Tartrate 5 MG TAB PO SCH (20:42)
[2017-05-13] MEDS: Ibuprofen 200 MG TAB PO PRN (20:45)
[2017-05-14] MEDS: METHadone HCl 10 MG TAB PO SCH ×4 (02:50→21:37)
[2017-05-14] MEDS: Gabapentin 300 MG CAP PO SCH ×3 (09:39→21:35)
[2017-05-14] MEDS: clonazePAM 0.5 MG TAB PO SCH ×2 (09:39→21:40)
[2017-05-14] MEDS: busPIRone HCl 5 MG TAB PO SCH ×2 (09:40→21:35)
[2017-05-14] MEDS: Saccharomyces boulardii 250 MG CAP PO SCH (09:40)
[2017-05-14] MEDS: Venlafaxine HCl 25 MG TAB PO SCH ×3 (09:40→21:36)
[2017-05-14] MEDS: Ibuprofen 200 MG TAB PO PRN (14:28)
[2017-05-14] MEDS: Zolpidem Tartrate 5 MG TAB PO SCH (21:36)
[2017-05-14] MEDS: Acetaminophen 325 MG TAB PO PRN (21:36)
[2017-05-15] MEDS: METHadone HCl 10 MG TAB PO SCH ×4 (03:13→20:22)
[2017-05-15] MEDS: Ibuprofen 200 MG TAB PO PRN ×2 (04:06→15:42)
[2017-05-15] MEDS: clonazePAM 0.5 MG TAB PO SCH ×2 (08:13→20:22)
[2017-05-15] MEDS: Gabapentin 300 MG CAP PO SCH ×3 (08:13→20:22)
[2017-05-15] MEDS: Venlafaxine HCl 25 MG TAB PO SCH ×3 (08:13→20:22)
[2017-05-15] MEDS: Saccharomyces boulardii 250 MG CAP PO SCH (10:11)
[2017-05-15] MEDS: busPIRone HCl 5 MG TAB PO SCH ×2 (10:12→20:21)
[2017-05-15] MEDS: Zolpidem Tartrate 5 MG TAB PO SCH (20:22)
[2017-05-16] MEDS: METHadone HCl 10 MG TAB PO SCH ×4 (03:04→20:06)
[2017-05-16] MEDS: Ibuprofen 200 MG TAB PO PRN (04:00)
[2017-05-16] MEDS: busPIRone HCl 5 MG TAB PO SCH ×2 (08:25→20:05)
[2017-05-16] MEDS: clonazePAM 0.5 MG TAB PO SCH ×2 (08:26→20:06)
[2017-05-16] MEDS: Venlafaxine HCl 25 MG TAB PO SCH ×3 (08:26→20:04)
[2017-05-16] MEDS: Gabapentin 300 MG CAP PO SCH ×3 (08:27→20:03)
[2017-05-16] MEDS: Saccharomyces boulardii 250 MG CAP PO SCH (08:28)
[2017-05-16] MEDS: Zolpidem Tartrate 5 MG TAB PO SCH (20:03)
[2017-05-17] MEDS: METHadone HCl 10 MG TAB PO SCH ×4 (03:05→20:17)
[2017-05-17] MEDS: busPIRone HCl 5 MG TAB PO SCH ×2 (08:49→20:14)
[2017-05-17] MEDS: Saccharomyces boulardii 250 MG CAP PO SCH (08:49)
[2017-05-17] MEDS: Venlafaxine HCl 25 MG TAB PO SCH ×3 (08:50→20:15)
[2017-05-17] MEDS: clonazePAM 0.5 MG TAB PO SCH ×2 (08:51→20:16)
[2017-05-17] MEDS: Gabapentin 300 MG CAP PO SCH ×3 (08:52→20:15)
[2017-05-17] MEDS: hydrOXYzine 25 MG TAB PO PRN (20:15)
[2017-05-17] MEDS: Zolpidem Tartrate 5 MG TAB PO SCH (20:16)
[2017-05-18] MEDS: METHadone HCl 10 MG TAB PO SCH ×4 (03:00→20:48)
[2017-05-18] MEDS: clonazePAM 0.5 MG TAB PO SCH ×2 (08:48→20:48)
[2017-05-18] MEDS: busPIRone HCl 5 MG TAB PO SCH ×2 (08:48→20:48)
[2017-05-18] MEDS: Saccharomyces boulardii 250 MG CAP PO SCH (08:49)
[2017-05-18] MEDS: Gabapentin 300 MG CAP PO SCH ×3 (08:49→20:48)
[2017-05-18] MEDS: Venlafaxine HCl 25 MG TAB PO SCH ×3 (08:49→20:47)
[2017-05-18] MEDS: Docusate 100 MG CAP PO PRN (11:27)
[2017-05-18] MEDS: Ibuprofen 200 MG TAB PO PRN (20:47)
[2017-05-18] MEDS: Zolpidem Tartrate 5 MG TAB PO SCH (20:47)
[2017-05-18] MEDS: tiZANidine HCl 4 MG TAB PO PRN (23:28)
[2017-05-19] MEDS: Docusate 100 MG CAP PO PRN (02:07)
[2017-05-19] MEDS: METHadone HCl 10 MG TAB PO SCH ×4 (02:51→20:41)
[2017-05-19] MEDS: Saccharomyces boulardii 250 MG CAP PO SCH (09:11)
[2017-05-19] MEDS: clonazePAM 0.5 MG TAB PO SCH ×2 (09:13→20:43)
[2017-05-19] MEDS: Venlafaxine HCl 25 MG TAB PO SCH ×3 (09:14→20:42)
[2017-05-19] MEDS: busPIRone HCl 5 MG TAB PO SCH ×2 (09:14→20:42)
[2017-05-19] MEDS: Gabapentin 300 MG CAP PO SCH ×3 (09:14→20:42)
[2017-05-19] MEDS: Ibuprofen 200 MG TAB PO PRN (18:39)
[2017-05-19] MEDS: Zolpidem Tartrate 5 MG TAB PO SCH (21:49)
[2017-05-19] MEDS: hydrOXYzine 25 MG TAB PO PRN (21:50)
[2017-05-20] MEDS: METHadone HCl 10 MG TAB PO SCH ×4 (02:58→21:09)
[2017-05-20] MEDS: Ibuprofen 200 MG TAB PO PRN (08:54)
[2017-05-20] MEDS: clonazePAM 0.5 MG TAB PO SCH ×2 (08:55→21:09)
[2017-05-20] MEDS: Gabapentin 300 MG CAP PO SCH ×3 (08:57→21:09)
[2017-05-20] MEDS: Venlafaxine HCl 25 MG TAB PO SCH ×3 (08:57→21:08)
[2017-05-20] MEDS: busPIRone HCl 5 MG TAB PO SCH ×2 (08:58→21:08)
[2017-05-20] MEDS: Saccharomyces boulardii 250 MG CAP PO SCH (08:58)
[2017-05-20] MEDS: Docusate 100 MG CAP PO PRN (15:43)
[2017-05-20] MEDS: hydrOXYzine 25 MG TAB PO PRN (21:09)
[2017-05-20] MEDS: Zolpidem Tartrate 5 MG TAB PO SCH (21:09)
[2017-05-21] MEDS: METHadone HCl 10 MG TAB PO SCH ×4 (02:59→20:52)
[2017-05-21] MEDS: busPIRone HCl 5 MG TAB PO SCH ×2 (09:07→20:50)
[2017-05-21] MEDS: Gabapentin 300 MG CAP PO SCH ×3 (09:08→20:52)
[2017-05-21] MEDS: Venlafaxine HCl 25 MG TAB PO SCH ×3 (09:09→20:53)
[2017-05-21] MEDS: Saccharomyces boulardii 250 MG CAP PO SCH (09:09)
[2017-05-21] MEDS: clonazePAM 0.5 MG TAB PO SCH ×2 (09:09→20:49)
[2017-05-21] MEDS: Docusate 100 MG CAP PO PRN (16:18)
[2017-05-21] MEDS: Zolpidem Tartrate 5 MG TAB PO SCH (20:49)
[2017-05-21] MEDS: hydrOXYzine 25 MG TAB PO PRN (22:36)
[2017-05-22] MEDS: METHadone HCl 10 MG TAB PO SCH ×4 (02:52→20:43)
[2017-05-22] MEDS: tiZANidine HCl 4 MG TAB PO PRN ×2 (04:47→15:52)
[2017-05-22] MEDS: Ibuprofen 200 MG TAB PO PRN ×2 (04:48→15:52)
[2017-05-22] MEDS: Docusate 100 MG CAP PO PRN (08:43)
[2017-05-22] MEDS: clonazePAM 0.5 MG TAB PO SCH ×2 (08:43→20:43)
[2017-05-22] MEDS: busPIRone HCl 5 MG TAB PO SCH ×2 (08:44→20:42)
[2017-05-22] MEDS: Gabapentin 300 MG CAP PO SCH ×3 (08:44→20:43)
[2017-05-22] MEDS: Saccharomyces boulardii 250 MG CAP PO SCH (08:44)
[2017-05-22] MEDS: Venlafaxine HCl 25 MG TAB PO SCH ×3 (08:46→20:44)
[2017-05-22] MEDS: Zolpidem Tartrate 5 MG TAB PO SCH (20:43)
[2017-05-23] MEDS: hydrOXYzine 25 MG TAB PO PRN ×2 (01:29→23:23)
[2017-05-23] MEDS: METHadone HCl 10 MG TAB PO SCH ×4 (03:23→21:01)
[2017-05-23] MEDS: busPIRone HCl 5 MG TAB PO SCH ×3 (09:16→21:36)
[2017-05-23] MEDS: Saccharomyces boulardii 250 MG CAP PO SCH (09:19)
[2017-05-23] MEDS: Gabapentin 300 MG CAP PO SCH ×3 (09:19→21:00)
[2017-05-23] MEDS: Venlafaxine HCl 25 MG TAB PO SCH ×3 (09:19→21:02)
[2017-05-23] MEDS: clonazePAM 0.5 MG TAB PO SCH ×2 (09:20→21:02)
[2017-05-23] MEDS: Zolpidem Tartrate 5 MG TAB PO SCH (21:03)
[2017-05-24] MEDS: METHadone HCl 10 MG TAB PO SCH ×4 (03:04→20:33)
[2017-05-24] MEDS: Saccharomyces boulardii 250 MG CAP PO SCH (08:44)
[2017-05-24] MEDS: Gabapentin 300 MG CAP PO SCH ×3 (08:44→20:32)
[2017-05-24] MEDS: Venlafaxine HCl 25 MG TAB PO SCH ×3 (08:45→20:33)
[2017-05-24] MEDS: busPIRone HCl 5 MG TAB PO SCH ×2 (08:45→20:35)
[2017-05-24] MEDS: clonazePAM 0.5 MG TAB PO SCH ×2 (08:45→20:35)
[2017-05-24] MEDS: tiZANidine HCl 4 MG TAB PO PRN (18:03)
[2017-05-24] MEDS: Zolpidem Tartrate 5 MG TAB PO SCH (20:36)
[2017-05-24] MEDS: hydrOXYzine 25 MG TAB PO PRN (22:36)
[2017-05-25] MEDS: METHadone HCl 10 MG TAB PO SCH ×4 (03:44→21:18)
[2017-05-25] MEDS: Ibuprofen 200 MG TAB PO PRN (08:23)
[2017-05-25] MEDS: busPIRone HCl 5 MG TAB PO SCH ×2 (08:24→21:17)
[2017-05-25] MEDS: Venlafaxine HCl 25 MG TAB PO SCH ×3 (08:24→21:16)
[2017-05-25] MEDS: clonazePAM 0.5 MG TAB PO SCH (08:24)
[2017-05-25] MEDS: Gabapentin 300 MG CAP PO SCH ×3 (08:26→21:16)
[2017-05-25] MEDS: Saccharomyces boulardii 250 MG CAP PO SCH (08:26)
[2017-05-25] MEDS ORDERED: clonazePAM 1 MG TAB ONE (21:00)
[2017-05-25] MEDS: Zolpidem Tartrate 5 MG TAB PO SCH (21:17)
[2017-05-25] MEDS: clonazePAM 1 MG TAB PO SCH (21:18)
[2017-05-26] MEDS: METHadone HCl 10 MG TAB PO SCH ×4 (03:04→21:26)
[2017-05-26] MEDS: busPIRone HCl 5 MG TAB PO SCH ×2 (09:40→21:27)
[2017-05-26] MEDS: Gabapentin 300 MG CAP PO SCH ×3 (09:41→21:27)
[2017-05-26] MEDS: Venlafaxine HCl 25 MG TAB PO SCH ×3 (09:41→21:26)
[2017-05-26] MEDS: Saccharomyces boulardii 250 MG CAP PO SCH (09:42)
[2017-05-26] MEDS: clonazePAM 1 MG TAB PO SCH ×4 (09:43→21:58)
[2017-05-26] MEDS: tiZANidine HCl 4 MG TAB PO PRN (15:29)
[2017-05-26] MEDS: Ibuprofen 200 MG TAB PO PRN (18:37)
[2017-05-26] MEDS: Zolpidem Tartrate 5 MG TAB PO SCH (21:26)
[2017-05-26] MEDS ORDERED: clonazePAM 1 MG TAB PO SCH (22:00)
[2017-05-27] MEDS: Acetaminophen 325 MG TAB PO PRN ×2 (01:03→23:53)
[2017-05-27] MEDS: hydrOXYzine 25 MG TAB PO PRN ×2 (01:03→23:54)
[2017-05-27] MEDS: METHadone HCl 10 MG TAB PO SCH ×4 (03:01→21:20)
[2017-05-27] MEDS: busPIRone HCl 5 MG TAB PO SCH ×2 (09:05→21:19)
[2017-05-27] MEDS: clonazePAM 1 MG TAB PO SCH ×2 (09:05→21:20)
[2017-05-27] MEDS: Saccharomyces boulardii 250 MG CAP PO SCH (09:05)
[2017-05-27] MEDS: Venlafaxine HCl 25 MG TAB PO SCH ×3 (09:09→21:18)
[2017-05-27] MEDS: Gabapentin 300 MG CAP PO SCH ×3 (09:10→21:18)
[2017-05-27] MEDS: tiZANidine HCl 4 MG TAB PO PRN (13:59)
[2017-05-27] MEDS: Ibuprofen 200 MG TAB PO PRN (13:59)
[2017-05-27] MEDS: Zolpidem Tartrate 5 MG TAB PO SCH (21:20)
[2017-05-28] MEDS: METHadone HCl 10 MG TAB PO SCH ×4 (02:58→21:15)
[2017-05-28] MEDS: busPIRone HCl 5 MG TAB PO SCH ×2 (09:29→21:14)
[2017-05-28] MEDS: Venlafaxine HCl 25 MG TAB PO SCH ×3 (09:31→21:13)
[2017-05-28] MEDS: Gabapentin 300 MG CAP PO SCH ×3 (09:31→21:13)
[2017-05-28] MEDS: Saccharomyces boulardii 250 MG CAP PO SCH (09:31)
[2017-05-28] MEDS: clonazePAM 1 MG TAB PO SCH ×2 (09:31→21:15)
[2017-05-28] MEDS: Ibuprofen 200 MG TAB PO PRN (13:31)
[2017-05-28] MEDS: tiZANidine HCl 4 MG TAB PO PRN (13:31)
[2017-05-28] MEDS: Zolpidem Tartrate 5 MG TAB PO SCH (21:14)
[2017-05-29] MEDS: tiZANidine HCl 4 MG TAB PO PRN (00:53)
[2017-05-29] MEDS: METHadone HCl 10 MG TAB PO SCH ×4 (02:59→20:35)
[2017-05-29] MEDS: busPIRone HCl 5 MG TAB PO SCH ×2 (09:28→20:36)
[2017-05-29] MEDS: Saccharomyces boulardii 250 MG CAP PO SCH (09:29)
[2017-05-29] MEDS: Venlafaxine HCl 25 MG TAB PO SCH ×3 (09:29→20:37)
[2017-05-29] MEDS: Gabapentin 300 MG CAP PO SCH ×3 (09:29→20:38)
[2017-05-29] MEDS: clonazePAM 1 MG TAB PO SCH ×2 (09:29→20:38)
[2017-05-29] MEDS: Zolpidem Tartrate 5 MG TAB PO SCH (20:38)
[2017-05-30] MEDS: Ibuprofen 200 MG TAB PO PRN ×2 (01:13→23:29)
[2017-05-30] MEDS: tiZANidine HCl 4 MG TAB PO PRN ×2 (01:13→23:29)
[2017-05-30] MEDS: METHadone HCl 10 MG TAB PO SCH ×4 (02:58→21:06)
[2017-05-30] MEDS: busPIRone HCl 5 MG TAB PO SCH ×2 (08:56→21:07)
[2017-05-30] MEDS: Venlafaxine HCl 25 MG TAB PO SCH ×3 (08:56→21:07)
[2017-05-30] MEDS: Saccharomyces boulardii 250 MG CAP PO SCH (08:56)
[2017-05-30] MEDS: Gabapentin 300 MG CAP PO SCH ×3 (08:56→21:07)
[2017-05-30] MEDS: clonazePAM 1 MG TAB PO SCH ×2 (08:57→21:07)
[2017-05-30] MEDS: Zolpidem Tartrate 5 MG TAB PO SCH (21:07)
[2017-05-31] MEDS: METHadone HCl 10 MG TAB PO SCH ×4 (03:14→20:43)
[2017-05-31] MEDS ORDERED: Adenosine 6 MG/2 ML VIAL ONE (07:09)
[2017-05-31] MEDS: Gabapentin 300 MG CAP PO SCH ×3 (09:16→20:46)
[2017-05-31] MEDS: clonazePAM 1 MG TAB PO SCH ×2 (09:16→20:46)
[2017-05-31] MEDS: Venlafaxine HCl 25 MG TAB PO SCH ×3 (09:17→20:42)
[2017-05-31] MEDS: Saccharomyces boulardii 250 MG CAP PO SCH (09:19)
[2017-05-31] MEDS: busPIRone HCl 5 MG TAB PO SCH ×2 (09:19→20:45)
[2017-05-31] MEDS: Ibuprofen 200 MG TAB PO PRN (18:34)
[2017-05-31] MEDS: tiZANidine HCl 4 MG TAB PO PRN (18:34)
[2017-05-31] MEDS: Zolpidem Tartrate 5 MG TAB PO SCH (20:46)
[2017-06-01] MEDS: hydrOXYzine 25 MG TAB PO PRN (01:44)
[2017-06-01] MEDS: METHadone HCl 10 MG TAB PO SCH ×4 (02:42→20:46)
[2017-06-01] MEDS: tiZANidine HCl 4 MG TAB PO PRN ×2 (02:44→13:47)
[2017-06-01] MEDS: Ibuprofen 200 MG TAB PO PRN (07:27)
[2017-06-01] MEDS: Venlafaxine HCl 25 MG TAB PO SCH ×3 (08:20→20:48)
[2017-06-01] MEDS: Saccharomyces boulardii 250 MG CAP PO SCH (08:21)
[2017-06-01] MEDS: busPIRone HCl 5 MG TAB PO SCH ×2 (08:21→20:47)
[2017-06-01] MEDS: Gabapentin 300 MG CAP PO SCH ×3 (08:22→20:48)
[2017-06-01] MEDS: clonazePAM 1 MG TAB PO SCH ×2 (08:22→20:48)
[2017-06-01] MEDS: Acetaminophen 325 MG TAB PO PRN (13:47)
[2017-06-01] MEDS: Zolpidem Tartrate 5 MG TAB PO SCH (20:48)
[2017-06-02] MEDS: METHadone HCl 10 MG TAB PO SCH ×4 (02:52→20:51)
[2017-06-02] MEDS: Saccharomyces boulardii 250 MG CAP PO SCH (08:27)
[2017-06-02] MEDS: clonazePAM 1 MG TAB PO SCH ×2 (08:27→20:51)
[2017-06-02] MEDS: Venlafaxine HCl 25 MG TAB PO SCH ×3 (08:27→20:50)
[2017-06-02] MEDS: Gabapentin 300 MG CAP PO SCH ×3 (08:27→20:51)
[2017-06-02] MEDS: tiZANidine HCl 4 MG TAB PO PRN ×2 (11:33→22:39)
[2017-06-02] MEDS: busPIRone HCl 5 MG TAB PO SCH ×2 (11:34→20:50)
[2017-06-02] MEDS: Ibuprofen 200 MG TAB PO PRN (15:14)
[2017-06-02] MEDS: Mupirocin 2% Ointment 22 GM Tube TOP SCH ×2 (15:15→20:50)
[2017-06-02] MEDS: Zolpidem Tartrate 5 MG TAB PO SCH (20:51)
[2017-06-03] MEDS: METHadone HCl 10 MG TAB PO SCH ×4 (02:50→20:49)
[2017-06-03] MEDS: hydrOXYzine 25 MG TAB PO PRN (02:50)
[2017-06-03] MEDS: busPIRone HCl 5 MG TAB PO SCH ×2 (09:06→20:48)
[2017-06-03] MEDS: Venlafaxine HCl 25 MG TAB PO SCH ×3 (09:08→20:48)
[2017-06-03] MEDS: clonazePAM 1 MG TAB PO SCH ×2 (09:09→20:49)
[2017-06-03] MEDS: Gabapentin 300 MG CAP PO SCH ×3 (09:09→20:48)
[2017-06-03] MEDS: Saccharomyces boulardii 250 MG CAP PO SCH (09:09)
[2017-06-03] MEDS: Mupirocin 2% Ointment 22 GM Tube TOP SCH ×3 (09:12→20:50)
[2017-06-03] MEDS: Zolpidem Tartrate 5 MG TAB PO SCH (20:49)
[2017-06-04] MEDS: METHadone HCl 10 MG TAB PO SCH ×4 (02:51→20:30)
[2017-06-04] MEDS: clonazePAM 1 MG TAB PO SCH ×2 (09:19→20:32)
[2017-06-04] MEDS: Gabapentin 300 MG CAP PO SCH ×3 (09:19→20:35)
[2017-06-04] MEDS: Saccharomyces boulardii 250 MG CAP PO SCH (09:19)
[2017-06-04] MEDS: Mupirocin 2% Ointment 22 GM Tube TOP SCH ×3 (09:19→20:36)
[2017-06-04] MEDS: busPIRone HCl 5 MG TAB PO SCH ×2 (09:19→20:34)
[2017-06-04] MEDS: Venlafaxine HCl 25 MG TAB PO SCH ×3 (09:19→20:33)
[2017-06-04] MEDS: tiZANidine HCl 4 MG TAB PO PRN (11:57)
[2017-06-04] MEDS: Ibuprofen 200 MG TAB PO PRN (11:57)
[2017-06-04] MEDS: Zolpidem Tartrate 5 MG TAB PO SCH (20:32)
[2017-06-05] MEDS: METHadone HCl 10 MG TAB PO SCH ×4 (02:37→20:27)
[2017-06-05] MEDS: tiZANidine HCl 4 MG TAB PO PRN (02:38)
[2017-06-05] MEDS: Saccharomyces boulardii 250 MG CAP PO SCH (10:07)
[2017-06-05] MEDS: Venlafaxine HCl 25 MG TAB PO SCH ×3 (10:08→20:27)
[2017-06-05] MEDS: clonazePAM 1 MG TAB PO SCH ×2 (10:09→20:26)
[2017-06-05] MEDS: busPIRone HCl 5 MG TAB PO SCH ×2 (10:10→20:28)
[2017-06-05] MEDS: Mupirocin 2% Ointment 22 GM Tube TOP SCH ×3 (10:11→20:28)
[2017-06-05] MEDS: Gabapentin 300 MG CAP PO SCH ×3 (10:11→20:28)
[2017-06-05] MEDS: Ibuprofen 200 MG TAB PO PRN (14:21)
[2017-06-05] MEDS: hydrOXYzine 25 MG TAB PO PRN (14:22)
[2017-06-05] MEDS: Zolpidem Tartrate 5 MG TAB PO SCH (20:26)
[2017-06-06] MEDS: tiZANidine HCl 4 MG TAB PO PRN ×2 (00:40→09:15)
[2017-06-06] MEDS: METHadone HCl 10 MG TAB PO SCH ×4 (03:04→20:26)
[2017-06-06] MEDS: busPIRone HCl 5 MG TAB PO SCH ×2 (08:29→20:24)
[2017-06-06] MEDS: Venlafaxine HCl 25 MG TAB PO SCH ×3 (08:30→20:25)
[2017-06-06] MEDS: clonazePAM 1 MG TAB PO SCH ×2 (08:31→20:25)
[2017-06-06] MEDS: Gabapentin 300 MG CAP PO SCH ×3 (08:31→20:25)
[2017-06-06] MEDS: Saccharomyces boulardii 250 MG CAP PO SCH (08:31)
[2017-06-06] MEDS: Mupirocin 2% Ointment 22 GM Tube TOP SCH ×5 (08:33→22:27)
[2017-06-06] MEDS: Ibuprofen 200 MG TAB PO PRN (17:22)
[2017-06-06] MEDS: Zolpidem Tartrate 5 MG TAB PO SCH (20:25)
[2017-06-06] MEDS: hydrOXYzine 25 MG TAB PO PRN (22:21)
[2017-06-07] MEDS: METHadone HCl 10 MG TAB PO SCH ×4 (03:05→20:35)
[2017-06-07] MEDS: Saccharomyces boulardii 250 MG CAP PO SCH (08:25)
[2017-06-07] MEDS: Mupirocin 2% Ointment 22 GM Tube TOP SCH ×3 (08:25→20:38)
[2017-06-07] MEDS: busPIRone HCl 5 MG TAB PO SCH ×2 (08:25→20:35)
[2017-06-07] MEDS: clonazePAM 1 MG TAB PO SCH ×2 (08:26→20:35)
[2017-06-07] MEDS: Gabapentin 300 MG CAP PO SCH ×3 (08:27→20:35)
[2017-06-07] MEDS: Venlafaxine HCl 25 MG TAB PO SCH ×3 (08:27→20:35)
[2017-06-07] MEDS: Ibuprofen 200 MG TAB PO PRN (09:10)
[2017-06-07] MEDS: Acetaminophen 325 MG TAB PO PRN (12:58)
[2017-06-07] MEDS: tiZANidine HCl 4 MG TAB PO PRN (12:58)
[2017-06-07] MEDS: Zolpidem Tartrate 5 MG TAB PO SCH (20:35)
[2017-06-08] MEDS: tiZANidine HCl 4 MG TAB PO PRN ×2 (01:22→16:26)
[2017-06-08] MEDS: Ibuprofen 200 MG TAB PO PRN ×2 (01:22→16:26)
[2017-06-08] MEDS: METHadone HCl 10 MG TAB PO SCH ×4 (02:56→21:11)
[2017-06-08] MEDS: Saccharomyces boulardii 250 MG CAP PO SCH (08:44)
[2017-06-08] MEDS: Venlafaxine HCl 25 MG TAB PO SCH ×3 (08:44→21:09)
[2017-06-08] MEDS: Gabapentin 300 MG CAP PO SCH ×3 (08:44→21:09)
[2017-06-08] MEDS: clonazePAM 1 MG TAB PO SCH ×2 (08:46→21:09)
[2017-06-08] MEDS: Mupirocin 2% Ointment 22 GM Tube TOP SCH ×3 (08:53→21:06)
[2017-06-08] MEDS: Acetaminophen 325 MG TAB PO PRN (10:04)
[2017-06-08] MEDS: busPIRone HCl 5 MG TAB PO SCH ×2 (14:42→21:10)
[2017-06-08] MEDS: Zolpidem Tartrate 5 MG TAB PO SCH (21:10)
[2017-06-09] MEDS: METHadone HCl 10 MG TAB PO SCH ×4 (03:34→21:20)
[2017-06-09] MEDS: Venlafaxine HCl 25 MG TAB PO SCH ×3 (08:30→21:19)
[2017-06-09] MEDS: Gabapentin 300 MG CAP PO SCH ×3 (08:31→21:20)
[2017-06-09] MEDS: busPIRone HCl 5 MG TAB PO SCH ×2 (08:31→21:19)
[2017-06-09] MEDS: clonazePAM 1 MG TAB PO SCH ×2 (08:32→21:20)
[2017-06-09] MEDS: Saccharomyces boulardii 250 MG CAP PO SCH (08:32)
[2017-06-09] MEDS: Mupirocin 2% Ointment 22 GM Tube TOP SCH ×3 (08:34→21:24)
[2017-06-09] MEDS: Ibuprofen 200 MG TAB PO PRN (10:00)
[2017-06-09] MEDS: Zolpidem Tartrate 5 MG TAB PO SCH (21:20)
[2017-06-10] MEDS: Ibuprofen 200 MG TAB PO PRN ×2 (03:20→11:59)
[2017-06-10] MEDS: METHadone HCl 10 MG TAB PO SCH ×4 (03:20→20:46)
[2017-06-10] MEDS: Saccharomyces boulardii 250 MG CAP PO SCH (08:28)
[2017-06-10] MEDS: Venlafaxine HCl 25 MG TAB PO SCH ×3 (08:28→20:45)
[2017-06-10] MEDS: busPIRone HCl 5 MG TAB PO SCH ×2 (08:29→20:45)
[2017-06-10] MEDS: clonazePAM 1 MG TAB PO SCH ×2 (08:30→20:46)
[2017-06-10] MEDS: Gabapentin 300 MG CAP PO SCH ×3 (08:30→20:46)
[2017-06-10] MEDS: Mupirocin 2% Ointment 22 GM Tube TOP SCH ×3 (08:30→20:51)
[2017-06-10] MEDS: tiZANidine HCl 4 MG TAB PO PRN (11:58)
[2017-06-10] MEDS: Zolpidem Tartrate 5 MG TAB PO SCH (20:45)
[2017-06-10] MEDS: Acetaminophen 325 MG TAB PO PRN (20:50)
[2017-06-11] MEDS: METHadone HCl 10 MG TAB PO SCH ×4 (03:11→21:47)
[2017-06-11] MEDS: Gabapentin 300 MG CAP PO SCH ×3 (08:05→21:47)
[2017-06-11] MEDS: Saccharomyces boulardii 250 MG CAP PO SCH (08:05)
[2017-06-11] MEDS: Venlafaxine HCl 25 MG TAB PO SCH ×3 (08:06→21:44)
[2017-06-11] MEDS: clonazePAM 1 MG TAB PO SCH ×2 (08:06→21:47)
[2017-06-11] MEDS: busPIRone HCl 5 MG TAB PO SCH ×2 (08:06→21:46)
[2017-06-11] MEDS: Mupirocin 2% Ointment 22 GM Tube TOP SCH ×3 (08:08→21:48)
[2017-06-11] MEDS: Zolpidem Tartrate 5 MG TAB PO SCH (21:46)
[2017-06-11 23:57] VITALS: BMI 24.7
[2017-06-12] MEDS: METHadone HCl 10 MG TAB PO SCH ×4 (03:16→21:34)
[2017-06-12] MEDS: Ibuprofen 200 MG TAB PO PRN ×2 (06:52→18:25)
[2017-06-12] MEDS: tiZANidine HCl 4 MG TAB PO PRN ×2 (06:52→18:25)
[2017-06-12] MEDS: Venlafaxine HCl 25 MG TAB PO SCH ×3 (08:20→21:32)
[2017-06-12] MEDS: Saccharomyces boulardii 250 MG CAP PO SCH (08:20)
[2017-06-12] MEDS: busPIRone HCl 5 MG TAB PO SCH ×2 (08:24→21:32)
[2017-06-12] MEDS: clonazePAM 1 MG TAB PO SCH ×2 (08:24→21:34)
[2017-06-12] MEDS: Gabapentin 300 MG CAP PO SCH ×3 (08:24→21:32)
[2017-06-12] MEDS: Mupirocin 2% Ointment 22 GM Tube TOP SCH ×3 (08:26→22:17)
[2017-06-12] MEDS: Zolpidem Tartrate 5 MG TAB PO SCH (21:33)
[2017-06-13] MEDS: hydrOXYzine 25 MG TAB PO PRN ×2 (00:46→22:32)
[2017-06-13] MEDS: METHadone HCl 10 MG TAB PO SCH ×4 (02:39→20:38)
[2017-06-13] MEDS: Saccharomyces boulardii 250 MG CAP PO SCH (08:36)
[2017-06-13] MEDS: busPIRone HCl 5 MG TAB PO SCH ×2 (08:38→20:37)
[2017-06-13] MEDS: Venlafaxine HCl 25 MG TAB PO SCH ×3 (08:38→20:37)
[2017-06-13] MEDS: Gabapentin 300 MG CAP PO SCH ×3 (08:38→20:38)
[2017-06-13] MEDS: Mupirocin 2% Ointment 22 GM Tube TOP SCH ×3 (08:39→21:03)
[2017-06-13] MEDS: clonazePAM 1 MG TAB PO SCH ×2 (08:39→20:38)
[2017-06-13] MEDS: Ibuprofen 200 MG TAB PO PRN (18:21)
[2017-06-13] MEDS: tiZANidine HCl 4 MG TAB PO PRN (18:21)
[2017-06-13] MEDS: Zolpidem Tartrate 5 MG TAB PO SCH (20:37)
[2017-06-14] MEDS: METHadone HCl 10 MG TAB PO SCH ×4 (03:07→20:53)
[2017-06-14] MEDS: Acetaminophen 325 MG TAB PO PRN (03:09)
[2017-06-14] MEDS: busPIRone HCl 5 MG TAB PO SCH ×2 (09:41→20:52)
[2017-06-14] MEDS: Venlafaxine HCl 25 MG TAB PO SCH ×3 (09:41→20:50)
[2017-06-14] MEDS: clonazePAM 1 MG TAB PO SCH ×2 (09:43→20:53)
[2017-06-14] MEDS: Saccharomyces boulardii 250 MG CAP PO SCH (09:45)
[2017-06-14] MEDS: Gabapentin 300 MG CAP PO SCH ×3 (09:45→20:52)
[2017-06-14] MEDS: Mupirocin 2% Ointment 22 GM Tube TOP SCH ×3 (09:46→21:02)
[2017-06-14] MEDS: Loperamide HCl 2 MG CAP PO PRN (20:50)
[2017-06-14] MEDS: Zolpidem Tartrate 5 MG TAB PO SCH (20:52)
[2017-06-14] MEDS: hydrOXYzine 25 MG TAB PO PRN (22:15)
[2017-06-15] MEDS: METHadone HCl 10 MG TAB PO SCH ×4 (03:05→20:45)
[2017-06-15] MEDS: busPIRone HCl 5 MG TAB PO SCH ×2 (08:47→20:44)
[2017-06-15] MEDS: Ibuprofen 200 MG TAB PO PRN ×2 (08:48→23:58)
[2017-06-15] MEDS: Venlafaxine HCl 25 MG TAB PO SCH ×3 (08:48→20:44)
[2017-06-15] MEDS: clonazePAM 1 MG TAB PO SCH ×2 (08:48→20:45)
[2017-06-15] MEDS: Saccharomyces boulardii 250 MG CAP PO SCH (08:48)
[2017-06-15] MEDS: Gabapentin 300 MG CAP PO SCH ×3 (08:50→20:45)
[2017-06-15] MEDS: Mupirocin 2% Ointment 22 GM Tube TOP SCH ×3 (11:14→20:52)
[2017-06-15] MEDS: Loperamide HCl 2 MG CAP PO PRN (17:32)
[2017-06-15] MEDS: tiZANidine HCl 4 MG TAB PO PRN (17:32)
[2017-06-15] MEDS: hydrOXYzine 25 MG TAB PO PRN (20:45)
[2017-06-15] MEDS: Zolpidem Tartrate 5 MG TAB PO SCH (20:45)
[2017-06-16] MEDS: tiZANidine HCl 4 MG TAB PO PRN (01:22)
[2017-06-16] MEDS: Acetaminophen 325 MG TAB PO PRN (01:22)
[2017-06-16] MEDS: METHadone HCl 10 MG TAB PO SCH ×3 (02:57→14:29)
[2017-06-16 06:31] VITALS: BP 109/59; TEMP 98.4
[2017-06-16] MEDS: busPIRone HCl 5 MG TAB PO SCH (09:51)
[2017-06-16] MEDS: Gabapentin 300 MG CAP PO SCH ×2 (09:52→14:31)
[2017-06-16] MEDS: clonazePAM 1 MG TAB PO SCH (09:52)
[2017-06-16] MEDS: Venlafaxine HCl 25 MG TAB PO SCH ×2 (09:54→14:31)
[2017-06-16] MEDS: Mupirocin 2% Ointment 22 GM Tube TOP SCH ×2 (09:55→14:14)
[2017-06-16] MEDS: Saccharomyces boulardii 250 MG CAP PO SCH (09:56)
--- NOTE | 2017-06-16 13:11 | DIS ---
DATE OF ADMISSION: 03/09/2017 DATE OF DISCHARGE: 06/16/2017 ADMISSION DIAGNOSES: Chronic sacral decubitus ulcer, status post sepsis. SECONDARY DIAGNOSES: Lower extremity paraplegia, neuropathy, insomnia, anxiety and depression. PROCEDURES: On 05/12/2017, x-ray of the sacrum and coccyx showed no acute findings in the sacrum or coccyx presumed old trauma to the left inferior pubic ramus and constipation. HOSPITAL COURSE: A 36-year-old paraplegic male who was initially admitted to [facility] in [place] for sepsis secondary to urinary tract infection and recurrent sacral decubitus ulcer. He was treated with IV antibiotics and was consulted by Infectious Disease and General Surgery. His antibiotics were transitioned to p.o. antibiotics and he completed a course of Levaquin. He was advised to have wound VAC care and no surgical debridement. Imaging effectively ruled out osteomyelitis. He was transferred to our facility at [facility] for further wound care with wound VAC, which was changed every Monday, Monday, and Monday. As noted, he completed a 1 week course of p.o. Levaquin. During his stay, the patient continued his self- catheterization due to his neurogenic bladder. The patient remained afebrile throughout his stay and had no significant complications. He did have some adjustments of his medications related to anxiety and depression during his stay. The patient's wound dramatically improved with the assistance of wound care and his wound VAC. There is not complete closure of the wound at this time ; however, he has graduated from wound VAC therapy to the point of wet-to-dry treatment at this point, which he will be able to continue with [facility]. The patient has shown great improvement in regards to the stage IV decubitus sacral ulcer and is amenable for discharge to his home setting at this time. DISPOSITION: Patient will be discharged home with further follow up care via [facility]. He may follow up with myself in the clinic in the next 1- 2 weeks. DISCHARGE MEDICATIONS: The patient may resume his usual home medications including gabapentin 300 mg p.o. t.i.d., methadone 20 mg p.o. q.6 hours, venlafaxine 50 mg p.o. t.i.d., and Ambien 10 mg p.o. at bedtime. [facility]
== END 2017-06-16 15:55 | disposition home or self-care (01) | DRG 592 ==
LOC: BURMED 16:35
PROVIDERS: ADMIT Family Medicine; ATTEND Family Medicine
PROC: 2W15X6Z Compression of Back using Pressure Dressing (ICD-10-PCS; principal; 2017-03-12)
PROC: 2W05X6Z Change Pressure Dressing on Back (ICD-10-PCS; 2017-03-24)
PROC: 2W55X6Z Removal of Pressure Dressing on Back (ICD-10-PCS; 2017-06-09)
DX: L89.154 Pressure ulcer of sacral region, stage 4 (principal); G82.20 Paraplegia, unspecified; N31.2 Flaccid neuropathic bladder, not elsewhere classified; N39.498 Other specified urinary incontinence; F32.9 Major depressive disorder, single episode, unspecified; F41.9 Anxiety disorder, unspecified; G47.00 Insomnia, unspecified; Z99.3 Dependence on wheelchair; G62.9 Polyneuropathy, unspecified; K59.00 Constipation, unspecified
CPT/HCPCS: 72220; 81003; 81015; 87086; 97602; G8981-GP-CI; G8982-GP-CH; G8987-GO-CK; G8988-GO-CI; G8990-GP-CH; G8991-GP-CH; J0153; Q0162

== ENCOUNTER 2017-09-25 21:19 | Emergency (ER) | payer MEDICARE ==
[2017-09-25 21:54] LABS: #Eosinphils 0.1 thou/uL (0.0-0.7); #Lymphocytes 1.4 thou/uL (1.20-3.40); #Monocytes 0.3 thou/uL (0.11-0.59); #Neutrophils 5.2 thou/uL (1.40-6.50); %Basophils 0.5 % (0.0-1.0); %Eosinophils 0.9 % (0.0-10.0); %Lymphocytes 20.2 % (21.0-51.0); %Monocytes 4.8 % (0.0-10.0); %Neutrophils 73.6 % (42.0-75.0)
[2017-09-25 22:03] LABS: ALT (SGPT) 17 U/L (8-55); AST (SGOT) 13 U/L (5-34); Alkaline Phosphatase 97 U/L (40-150); Anion Gap 15 mmol/L (10-20); BUN (Urea Nitrogen) 8 mg/dL (8.9-20.6); Bilirubin, Total 0.9 mg/dL (0.2-1.2); Calc. Creatinine Clearance 0 mL/min (70-130); Calcium 9.8 mg/dL (7.8-10.44); Carbon Dioxide 26 mmol/L (22-29); Chloride 107 mmol/L (98-107); Estimated GFR-MDRD Greater than 90; Globulin 2.4 g/dL (2.4-3.5); Glucose 124 mg/dL (70-105); Potassium 3.9 mmol/L (3.5-5.1); Protein, Total 7.4 g/dL (6.0-8.3); Sodium 144 mmol/L (136-145)
[2017-09-25 22:05] LABS: Clarity Clear (Clear); Leukocyte Small (Negative); pH, Urine 6.5 (5.0-9.0)
[2017-09-25 22:05] LABS: CKMB 1.2 ng/mL (0-6.6); Troponin I Less than 0.010 ng/mL (< 0.028)
[2017-09-25 22:06] LABS: Bilirubin Negative (Negative); Blood, Urine Negative (Negative); Glucose, Urine (Dipstick) Negative (Negative); Nitrite Negative (Negative); Protein, Urine (Dipstick) Negative (Neg-Trace); Urobilinogen 0.2 mg/dL (0.2-1.0)
[2017-09-25 22:10] LABS: Hemoglobin 17.1 g/dL (14.0-18.0); Mean Corpuscular HGB CONC 37.5 g/dL (32.0-36.0); Mean Corpuscular Hemoglobin 28.1 pg (27.0-31.0); Mean Corpuscular Volume 74.9 fL (78.0-98.0); Mean Platelet Volume 7.4 fL (7.4-10.4); PLT Morphology Comment Appears Adequate; Platelet Count 203 thou/uL (130-400); RBC Distribution Width 12.3 % (11.5-14.5); RBC Morphology Normal; Red Blood Cell (RBC) Count 6.08 mill/uL (4.70-6.10)
[2017-09-25 22:12] LABS: MDiff Complete? YES; Manual Diff?? NO
[2017-09-25 22:14] LABS: Amphetamine Not Detected (NotDetected); Barbiturates Screen Not Detected (NotDetected); Benzodiazepine Screen Not Detected (NotDetected); Cocaine Metabolite Screen Not Detected (NotDetected); Medtox Control Line Valid? VALID (VALID); Methadone Detected (NotDetected); Methamphetamine Not Detected (NotDetected); Opiate Screen Not Detected (NotDetected); Oxycodone Screen Not Detected (NotDetected); Phencyclidine (PCP) Not Detected (NotDetected); THC/Cannabinoid Screen Not Detected (NotDetected); Tricyclic Screen Not Detected (NotDetected)
[2017-09-25 22:16] LABS: Bacteria/HPF Rare-Few HPF (None Seen); Crystals/HPF 1+ AMORPH URATES HPF (Negative); RBC/HPF 0-3 HPF (0-3); Squamous Epithelial 0-3 HPF (0-3)
[2017-09-25] MEDS ORDERED: Ibuprofen 200 MG TAB ONE (22:48)
--- NOTE | 2017-09-25 22:52 | RAD ---
AP PORTABLE CHEST: 09/25/2017 2126 HOURS COMPARISON: 03/04/2017 FINDINGS: The heart is normal in size, and the lungs are clear. There is no vascular congestion, edema, or eff usion. The mediastinum appears normal. IMPRESSION: No acute thoracic findings. POS: [facility]
[2017-09-26 00:56] LABS: Troponin I Less than 0.010 ng/mL (< 0.028)
== END 2017-09-26 01:10 | disposition home or self-care (01) ==
LOC: BURERS 21:19
DX: R07.2 Precordial pain (principal); R20.2 Paresthesia of skin; I10 Essential (primary) hypertension; F32.9 Major depressive disorder, single episode, unspecified; F20.9 Schizophrenia, unspecified; F17.200 Nicotine dependence, unspecified, uncomplicated; Z79.899 Other long term (current) drug therapy
CPT/HCPCS: 36415; 71045; 80053; 80306; 81003; 81015; 82553; 83605; 84443; 84484; 85025; 93005; 94760

== ENCOUNTER 2017-10-31 10:53 | Emergency (ER) | payer MEDICARE ==
[2017-10-31] MEDS ORDERED: cefTRIAXone\\ROCEPHIN 1 GM VIAL ONE (11:19)
== END 2017-10-31 11:37 | disposition home or self-care (01) ==
LOC: BURERS 10:53
DX: L03.115 Cellulitis of right lower limb (principal); I10 Essential (primary) hypertension; F32.9 Major depressive disorder, single episode, unspecified; F20.9 Schizophrenia, unspecified; F17.200 Nicotine dependence, unspecified, uncomplicated; Z79.899 Other long term (current) drug therapy
CPT/HCPCS: 90471; 96372; J0696

== ENCOUNTER 2018-01-21 13:42 | Emergency (ER) | payer MEDICARE ==
[2018-01-21] MEDS ORDERED: Amoxicillin/Potassium Clav 875 MG TAB ONE (14:01)
[2018-01-21] MEDS ORDERED: Neomycin-Polymyxin-Hc 7.5 ML BOT ONE (14:01)
== END 2018-01-21 14:10 | disposition home or self-care (01) ==
LOC: BURERS 13:42
DX: H60.92 Unspecified otitis externa, left ear (principal); I10 Essential (primary) hypertension; F32.9 Major depressive disorder, single episode, unspecified; F20.9 Schizophrenia, unspecified; F17.290 Nicotine dependence, other tobacco product, uncomplicated; Z79.899 Other long term (current) drug therapy
CPT/HCPCS: 36416; 99282

== ENCOUNTER 2018-03-27 14:50 | Inpatient (IN) | payer MEDICARE ==
[2018-03-27 16:52] LABS: Lactic Acid 1.7 mmol/L (0.5-2.2)
[2018-03-27] MEDS ORDERED: Ondansetron ODT 4 MG TAB PO PRN (16:53)
[2018-03-27 16:56] LABS: ALT (SGPT) 29 U/L (8-55); AST (SGOT) 18 U/L (5-34); Albumin 3.8 g/dL (3.5-5.0); Alkaline Phosphatase 123 U/L (40-150); Anion Gap 15 mmol/L (10-20); BUN (Urea Nitrogen) 8 mg/dL (8.9-20.6); Calc. Creatinine Clearance 138 mL/min (70-130); Calcium 9.2 mg/dL (7.8-10.44); Carbon Dioxide 29 mmol/L (22-29); Chloride 101 mmol/L (98-107); Estimated GFR-MDRD Greater than 90; Globulin 2.7 g/dL (2.4-3.5); Glucose 95 mg/dL (70-105); Potassium 3.6 mmol/L (3.5-5.1); Protein, Total 6.5 g/dL (6.0-8.3); Sodium 141 mmol/L (136-145)
[2018-03-27 17:07] LABS: #Eosinphils 0.3 thou/uL (0.0-0.7); #Lymphocytes 0.8 thou/uL (1.20-3.40); #Monocytes 0.7 thou/uL (0.11-0.59); #Neutrophils 12.4 thou/uL (1.40-6.50); %Basophils 0.3 % (0.0-1.0); %Eosinophils 2.1 % (0.0-10.0); %Lymphocytes 5.5 % (21.0-51.0); %Monocytes 4.8 % (0.0-10.0); %Neutrophils 87.2 % (42.0-75.0); Hemoglobin 13.8 g/dL (14.0-18.0); Mean Corpuscular HGB CONC 36.5 g/dL (32.0-36.0); Mean Corpuscular Hemoglobin 30.7 pg (27.0-31.0); Mean Corpuscular Volume 84.1 fL (78.0-98.0); Mean Platelet Volume 7.5 fL (7.4-10.4); Platelet Count 203 thou/uL (130-400); RBC Distribution Width 11.3 % (11.5-14.5); White Blood Cell (WBC) Count 14.2 thou/uL (4.8-10.8)
[2018-03-27 17:32] VITALS: BMI 20.7
[2018-03-27] MEDS: METHadone HCl 10 MG TAB PO SCH (17:45)
--- NOTE | 2018-03-27 18:08 | RAD ---
SACRUM AND COCCYX: 03/27/18 No fracture or obvious area of bony destruction was seen. There is a large amount of fecal material in the rectosigmoid colon that partially obscures the sacru m, thus decreasing the sensitivity of this examination. The SI joints appear normal. IMPRESSION: Somewhat low sensitivity study showing no acute findings. MRI, bone scan, or CT would be more sensiti ve at detecting subtle osteomyelitis if that is a concern. POS: HOME
[2018-03-27] MEDS: Gabapentin 300 MG CAP PO PRN (18:13)
--- NOTE | 2018-03-27 19:34 | HP ---
CHIEF COMPLAINT: Infected stage IV sacral ulcer. HISTORY OF PRESENT ILLNESS: 37-year-old paraplegic male presented to the outpatient setting earlier today with complaints of worsening sacral decubitus ulcer. The patient had a stage I sacral ulcer to this location, seen in the clinical setting approximately 1 month ago. He has been followed by an [facility] wound care nurse, who sees him on a weekly basis; however, has noted he has had continual worsening of this sacral ulcer. Accompanying symptoms now include the patient feeling clammy with chills, although he did not report having a fever. The patient has a history of recurrent sacral ulcers, most notably requiring admission at [facility] in [place], where he presented with sepsis early in 2018. At that time, he was evaluated by both Infectious Disease and General Surgery; however, imaging did not reveal concern for osteomyelitis and surgical debridement was deferred. He transitioned out here to [facility] for wound care, for which he had a wound VAC and completed a course of p.o. antibiotics; this SNF admission was from March 2017 until June 2017. Since that time at home, he has done fairly well up until this most recent setback. The patient feels that he is beginning to get systemically ill as he did early in 2018 under similar circumstances. Secondary to his notable worsening and history, he has been directly admitted for initiation of antibiotics, wound care, and further management. PAST MEDICAL HISTORY: Includes lower extremity paraplegia, neuropathy, neurogenic bladder, insomnia, and anxiety. PAST SURGICAL HISTORY: Includes back surgery several years ago and prior wound VAC treatment. FAMILY HISTORY: Noncontributory. SOCIAL HISTORY: Denies alcohol or illicit drug use. He does smoke on occasion. ALLERGIES: NONE. CURRENT MEDICATIONS: Include; 1. Buspirone 15 mg p.o. b.i.d. 2. Gabapentin 300 mg p.o. t.i.d. p.r.n. 3. Hydroxyzine 25 mg p.o. b.i.d. 4. Methadone 20 mg p.o. q.6 hours. 5. Zolpidem 10 mg p.o. at bedtime. REVIEW OF SYSTEMS: GENERAL: Denies fever. Complains of chills and feeling clammy. HEAD, EYES, EARS, NOSE, AND THROAT: Denies sore throat, nasal drainage, or congestion. CARDIOVASCULAR: Denies chest pain or palpitation. RESPIRATORY: Denies shortness of breath or cough. GASTROINTESTINAL: Denies abdominal pain. Does complain of nausea. MUSCULOSKELETAL: Denies joint swelling. DERMATOLOGIC: Complains of sacral wound. NEUROLOGIC: Denies headache. LABORATORY DATA: CBC is pending. Metabolic panel shows sodium 141, potassium 3.6, anion gap is 15, BUN is 8, creatinine 0.61, GFR is 90, glucose 95. Lactic acid is 1.7. IMAGING DATA: An x-ray of the sacrum and coccyx is pending. PHYSICAL EXAMINATION: VITAL SIGNS: Temperature is 99.9, pulse is 110, respiratory rate is 18, oxygen 96% on room air, blood pressure is 111/73. GENERAL: The patient is alert and oriented, in no acute distress. EYES: Conjunctivae are clear. Sclerae are clear. Extraocular muscles are intact bilaterally. HEAD, EYES, EARS, NOSE, AND THROAT: Within normal limits. NECK: Supple. No lymphadenopathy. No meningeal signs. CARDIOVASCULAR: Sinus tachycardia. Normal S1 and S2 with no murmurs, rubs, or gallops. RESPIRATORY: Clear to auscultation bilaterally without wheezes, rales, or rhonchi. GASTROINTESTINAL: Soft, nontender to palpation. No masses. EXTREMITIES: No clubbing, cyanosis, or edema. MUSCULOSKELETAL: Chronic muscular atrophy to bilateral lower extremities. SKIN: Stage IV sacral decubitus ulcer approximately 5 x 7 cm with extending erythema to the surrounding areas including the lower lumbar area. NEUROLOGIC: Nonfocal. Cranial nerves 2 through 12 are grossly intact. Peripheral pulses are normal to all 4 extremities. ASSESSMENT AND PLAN: 1. Stage IV sacral decubitus ulcer, infected. CBC shows leukocytosis with left shift.. Blood culture x2 has been obtained as has a wound culture. The patient has been started on IV 500 mg Levaquin empirically and we will follow up the cultures accordingly. We will have a wound care consult. Lactic acid is notably within normal limits. X-ray reading of sacrum is pending to assess for osteomyelitis. 2. Paraplegia with neurogenic bladder. The patient will resume self cath as usual as he does at home. 3. Chronic neuropathic pain. We will resume the patient's p.r.n. gabapentin. He is on chronic methadone therapy, managed by provider at [facility] in [place]. 4. Anxiety. We will resume buspirone and hydroxyzine. 5. Insomnia. We will resume zolpidem. 6. Prophylaxis. We will provide famotidine for GI prophylaxis. He is not a necessary candidate for anticoagulation therapy as he is nonambulatory. Job ID: [id number] MTDD
[2018-03-27] MEDS: Famotidine 20 MG TAB PO SCH (21:08)
[2018-03-27] MEDS: Zolpidem Tartrate 5 MG TAB PO SCH (21:08)
[2018-03-27] MEDS: hydrOXYzine 25 MG TAB PO SCH (21:08)
[2018-03-27] MEDS: busPIRone HCl 5 MG TAB PO SCH (21:08)
[2018-03-27] MEDS: Nicotine 21 MG PATCH TOP SCH (22:29)
[2018-03-28] MEDS: METHadone HCl 10 MG TAB PO SCH ×5 (00:05→23:35)
[2018-03-28] MEDS ORDERED: Acetaminophen 325 MG TAB PO PRN (00:17)
[2018-03-28] MEDS: Gabapentin 300 MG CAP PO PRN ×2 (04:39→16:18)
[2018-03-28 05:20] LABS: #Basophils 0.1 thou/uL (0.0-0.2); #Eosinphils 0.5 thou/uL (0.0-0.7); #Lymphocytes 0.9 thou/uL (1.20-3.40); #Monocytes 0.6 thou/uL (0.11-0.59); %Basophils 0.6 % (0.0-1.0); %Lymphocytes 7.8 % (21.0-51.0); %Neutrophils 82.6 % (42.0-75.0); Hemoglobin 12.5 g/dL (14.0-18.0); Mean Corpuscular HGB CONC 35.3 g/dL (32.0-36.0); Mean Corpuscular Hemoglobin 30.3 pg (27.0-31.0); Mean Corpuscular Volume 85.6 fL (78.0-98.0); Mean Platelet Volume 7.7 fL (7.4-10.4); Platelet Count 195 thou/uL (130-400); RBC Distribution Width 11.5 % (11.5-14.5); Red Blood Cell (RBC) Count 4.12 mill/uL (4.70-6.10)
[2018-03-28 05:36] LABS: Anion Gap 13 mmol/L (10-20); BUN (Urea Nitrogen) 8 mg/dL (8.9-20.6); Calc. Creatinine Clearance 134 mL/min (70-130); Calcium 8.6 mg/dL (7.8-10.44); Carbon Dioxide 30 mmol/L (22-29); Chloride 102 mmol/L (98-107); Estimated GFR-MDRD Greater than 90; Glucose 94 mg/dL (70-105); Potassium 3.2 mmol/L (3.5-5.1); Sodium 142 mmol/L (136-145)
[2018-03-28] MEDS ORDERED: Ibuprofen 800 MG TAB PO PRN (07:53)
[2018-03-28] MEDS ORDERED: Vancomycin HCl 1 GM in Sodium Chloride 0.9% 250 ML 250 ML IVPB SCH (08:00)
[2018-03-28] MEDS: busPIRone HCl 5 MG TAB PO SCH ×2 (10:00→21:57)
[2018-03-28] MEDS: Loratadine 10 MG TAB PO SCH (10:00)
[2018-03-28] MEDS: Saccharomyces boulardii 250 MG CAP PO SCH (10:00)
[2018-03-28] MEDS: hydrOXYzine 25 MG TAB PO SCH ×2 (10:00→21:57)
[2018-03-28] MEDS: Fluticasone Propionate Nasal Spray 16 gm Bottle NASAL SCH (10:00)
[2018-03-28] MEDS: Potassium Chloride 20 MEQ TAB PO SCH (10:00)
[2018-03-28] MEDS: Famotidine 20 MG TAB PO SCH ×2 (10:00→21:57)
[2018-03-28] MEDS: Vancomycin HCl 1 GM in Sodium Chloride 0.9% 250 ML 250 ML IVPB SCH ×2 (16:42→23:37)
--- NOTE | 2018-03-28 20:02 | CT ---
CT OF THE PELVIS WITH CONTRAST 03/28/[address] of the pelvis was done for evaluation of possible osteomyelitis. Axial slices were acquired followed by coronal and sagittal reconstructions. Comparison was made with plain films of the sacrum and coccyx dated 03/27/18 and 05/12/17. I also review ed a 2012 MRI of the pelvis. No bony destructive lesions of the sacrum are seen. Thus, there were no signs of osteomyelitis by CT criteria. The left inferior pubic ramus is thinned and sclerotic. The appearance is somewhat similar to prior plain pelvic radiographs, so I suspect that this is more likely chronic change than active. Nevertheless, MRI would be more sensitive at showing any bone marrow edema here to suggest current in fection. If needed, that could be pursued. No fractures were seen. There is deformity of the left hip that is longstanding. Incidental findings are distention of the urinary bladder and large amount of fecal material in the r ectal vault. IMPRESSION: 1. No bony destructive lesions appreciated. 2. Thinning and sclerosis of the left inferior pubic ramus near the ischium. Probably longstandi ng. See comments above. 3. Other findings as listed above. POS: HOME
[2018-03-28] MEDS: Zolpidem Tartrate 5 MG TAB PO SCH (21:56)
[2018-03-28] MEDS: Nicotine 21 MG PATCH TOP SCH (21:58)
[2018-03-29] MEDS: Gabapentin 300 MG CAP PO PRN ×2 (03:15→17:59)
[2018-03-29] MEDS: METHadone HCl 10 MG TAB PO SCH ×3 (05:02→17:58)
[2018-03-29 05:38] LABS: #Basophils 0.1 thou/uL (0.0-0.2); #Eosinphils 0.6 thou/uL (0.0-0.7); #Lymphocytes 1.3 thou/uL (1.20-3.40); #Monocytes 0.8 thou/uL (0.11-0.59); #Neutrophils 9.7 thou/uL (1.40-6.50); %Basophils 0.6 % (0.0-1.0); %Lymphocytes 10.6 % (21.0-51.0); %Monocytes 6.6 % (0.0-10.0); %Neutrophils 77.2 % (42.0-75.0); Hemoglobin 11.8 g/dL (14.0-18.0); Mean Corpuscular HGB CONC 34.3 g/dL (32.0-36.0); Mean Corpuscular Volume 84.6 fL (78.0-98.0); Mean Platelet Volume 7.2 fL (7.4-10.4); Platelet Count 191 thou/uL (130-400); RBC Distribution Width 11.4 % (11.5-14.5); Red Blood Cell (RBC) Count 4.07 mill/uL (4.70-6.10); White Blood Cell (WBC) Count 12.6 thou/uL (4.8-10.8)
[2018-03-29 05:43] LABS: Anion Gap 12 mmol/L (10-20); BUN (Urea Nitrogen) 13 mg/dL (8.9-20.6); Calc. Creatinine Clearance 162 mL/min (70-130); Calcium 8.6 mg/dL (7.8-10.44); Carbon Dioxide 28 mmol/L (22-29); Chloride 104 mmol/L (98-107); Estimated GFR-MDRD Greater than 90; Glucose 107 mg/dL (70-105); Potassium 3.2 mmol/L (3.5-5.1); Sodium 141 mmol/L (136-145)
[2018-03-29] MEDS ORDERED: Docusate Sodium 100 MG/10 ML UDCUP PO PRN (08:03)
[2018-03-29] MEDS ORDERED: Senokot 8.6 MG TAB PO PRN (08:03)
[2018-03-29] MEDS: Fluticasone Propionate Nasal Spray 16 gm Bottle NASAL SCH (08:37)
[2018-03-29] MEDS: Vancomycin HCl 1 GM in Sodium Chloride 0.9% 250 ML 250 ML IVPB SCH ×2 (08:38→16:35)
[2018-03-29] MEDS: Saccharomyces boulardii 250 MG CAP PO SCH (08:46)
[2018-03-29] MEDS: busPIRone HCl 5 MG TAB PO SCH ×2 (08:46→20:19)
[2018-03-29] MEDS: Famotidine 20 MG TAB PO SCH ×2 (08:47→20:20)
[2018-03-29] MEDS: Potassium Chloride 20 MEQ TAB PO SCH (08:47)
[2018-03-29] MEDS: hydrOXYzine 25 MG TAB PO SCH ×2 (08:47→20:19)
[2018-03-29] MEDS: Loratadine 10 MG TAB PO SCH (08:50)
[2018-03-29] MEDS: Nicotine 21 MG PATCH TOP SCH (20:19)
[2018-03-29] MEDS: Zolpidem Tartrate 5 MG TAB PO SCH (20:20)
[2018-03-30] MEDS: METHadone HCl 10 MG TAB PO SCH ×2 (00:20→05:52)
[2018-03-30] MEDS: Vancomycin HCl 1 GM in Sodium Chloride 0.9% 250 ML 250 ML IVPB SCH ×2 (00:21→08:24)
[2018-03-30 05:03] LABS: #Basophils 0.1 thou/uL (0.0-0.2); #Eosinphils 0.5 thou/uL (0.0-0.7); #Lymphocytes 1.6 thou/uL (1.20-3.40); #Monocytes 0.6 thou/uL (0.11-0.59); %Basophils 0.5 % (0.0-1.0); %Lymphocytes 14.7 % (21.0-51.0); %Monocytes 5.4 % (0.0-10.0); %Neutrophils 74.5 % (42.0-75.0); Mean Corpuscular HGB CONC 35.1 g/dL (32.0-36.0); Mean Corpuscular Hemoglobin 29.7 pg (27.0-31.0); Mean Corpuscular Volume 84.7 fL (78.0-98.0); Platelet Count 221 thou/uL (130-400); RBC Distribution Width 11.5 % (11.5-14.5); Red Blood Cell (RBC) Count 4.03 mill/uL (4.70-6.10); White Blood Cell (WBC) Count 10.7 thou/uL (4.8-10.8)
[2018-03-30 05:20] LABS: Anion Gap 13 mmol/L (10-20); BUN (Urea Nitrogen) 17 mg/dL (8.9-20.6); Calc. Creatinine Clearance 146 mL/min (70-130); Calcium 8.8 mg/dL (7.8-10.44); Carbon Dioxide 26 mmol/L (22-29); Chloride 105 mmol/L (98-107); Estimated GFR-MDRD Greater than 90; Glucose 139 mg/dL (70-105); Potassium 3.9 mmol/L (3.5-5.1); Sodium 140 mmol/L (136-145)
[2018-03-30 05:36] LABS: Thyroid Stimulating Hormone 2.5595 uIU/mL (0.35-4.94)
[2018-03-30 06:32] VITALS: BP 115/67; TEMP 98.4
[2018-03-30] MEDS: Famotidine 20 MG TAB PO SCH (08:26)
[2018-03-30] MEDS: Potassium Chloride 20 MEQ TAB PO SCH (08:26)
[2018-03-30] MEDS: Saccharomyces boulardii 250 MG CAP PO SCH (08:26)
[2018-03-30] MEDS: busPIRone HCl 5 MG TAB PO SCH (08:26)
[2018-03-30] MEDS: hydrOXYzine 25 MG TAB PO SCH (08:26)
[2018-03-30] MEDS: Loratadine 10 MG TAB PO SCH (08:33)
[2018-03-30] MEDS: Fluticasone Propionate Nasal Spray 16 gm Bottle NASAL SCH (08:33)
[2018-03-30 12:52] LABS: Free T4 (Free Thyroxine) 1.06 ng/dL (0.70-1.48)
[2018-03-30 15:22] LABS: Vancomycin, Trough 14.5 ug/mL
--- NOTE | 2018-03-30 17:06 | RAD ---
LEFT HAND THREE VIEWS: 03/30/18 Some soft tissue swelling is seen on the dorsum of the hand. No acute fracture or area of bony destru ction was detected. The carpal relationships seem normal. On the lateral view, there is a rounded bon y density just dorsal to the carpal bones that may be an old avulsion injury. Its edges are smooth, s o it does not appear acute. IMPRESSION: No acute findings. Possible old carpal avulsion. POS: HOME
[2018-04-10] MEDS ORDERED: Nicotine 14 MG PATCH TOP SCH (22:00)
[2018-04-24] MEDS ORDERED: Nicotine 7 MG PATCH TOP SCH (22:00)
== END 2018-03-30 10:13 | disposition swing bed (61) | DRG 593 ==
LOC: BURMED 14:50
PROVIDERS: ADMIT Family Medicine; ATTEND Family Medicine
DX: L89.154 Pressure ulcer of sacral region, stage 4 (principal); G82.20 Paraplegia, unspecified; G62.9 Polyneuropathy, unspecified; F41.9 Anxiety disorder, unspecified; G47.00 Insomnia, unspecified
CPT/HCPCS: 36415; 72194; 72220; 80048; 80053; 80202; 83605; 84439; 84443; 85025; 85652; 86140; 87040; 87070; 87077; 87186; 87205; 90471; 90732; 97602; G0009; J1956; J3370; J7050

== ENCOUNTER 2018-03-30 10:52 | Inpatient (IN) | payer MEDICARE ==
[2018-03-30] MEDS ORDERED: Acetaminophen 325 MG TAB PO PRN (11:23)
[2018-03-30] MEDS: METHadone HCl 10 MG TAB PO SCH ×3 (12:14→23:52)
[2018-03-30] MEDS: Gabapentin 300 MG CAP PO PRN ×2 (12:18→20:59)
[2018-03-30] MEDS ORDERED: Vancomycin HCl 1 GM in Sodium Chloride 0.9% 250 ML 250 ML IVPB SCH (16:00)
[2018-03-30] MEDS: Zolpidem Tartrate 5 MG TAB PO PRN (20:59)
[2018-03-31] MEDS ORDERED: Loratadine 10 MG TAB PO PRN (01:52)
[2018-03-31] MEDS: METHadone HCl 10 MG TAB PO SCH ×4 (06:13→23:54)
[2018-03-31] MEDS: Fluticasone Propionate Nasal Spray 16 gm Bottle NASAL SCH (09:47)
[2018-03-31] MEDS: Saccharomyces boulardii 250 MG CAP PO SCH (09:48)
[2018-03-31] MEDS: DULoxetine 30 MG CAP PO SCH (09:48)
[2018-03-31] MEDS: Potassium Chloride 20 MEQ TAB PO SCH (09:48)
[2018-03-31] MEDS: busPIRone HCl 5 MG TAB PO SCH ×2 (09:48→21:07)
[2018-03-31] MEDS: hydrOXYzine 25 MG TAB PO SCH ×2 (09:49→21:06)
[2018-03-31] MEDS: Famotidine 20 MG TAB PO SCH ×2 (09:49→21:07)
[2018-03-31] MEDS: Nicotine 21 MG PATCH TOP SCH (09:49)
[2018-03-31] MEDS: Gabapentin 300 MG CAP PO PRN ×2 (16:00→23:58)
[2018-03-31] MEDS: Zolpidem Tartrate 5 MG TAB PO PRN (21:06)
[2018-04-01] MEDS: METHadone HCl 10 MG TAB PO SCH ×4 (05:47→23:54)
[2018-04-01] MEDS: Gabapentin 300 MG CAP PO PRN (07:25)
[2018-04-01] MEDS: Nicotine 21 MG PATCH TOP SCH (08:04)
[2018-04-01] MEDS: Saccharomyces boulardii 250 MG CAP PO SCH (08:04)
[2018-04-01] MEDS: DULoxetine 30 MG CAP PO SCH (08:04)
[2018-04-01] MEDS: busPIRone HCl 5 MG TAB PO SCH ×2 (08:05→21:33)
[2018-04-01] MEDS: Fluticasone Propionate Nasal Spray 16 gm Bottle NASAL SCH (08:05)
[2018-04-01] MEDS: hydrOXYzine 25 MG TAB PO SCH ×2 (08:05→21:31)
[2018-04-01] MEDS: Famotidine 20 MG TAB PO SCH ×2 (08:05→21:31)
[2018-04-01] MEDS: Potassium Chloride 20 MEQ TAB PO SCH (08:05)
[2018-04-01] MEDS: Ibuprofen 200 MG TAB PO PRN (21:32)
[2018-04-01] MEDS: Zolpidem Tartrate 5 MG TAB PO PRN (21:32)
[2018-04-02] MEDS: METHadone HCl 10 MG TAB PO SCH ×4 (05:41→23:57)
[2018-04-02 07:56] LABS: ALT (SGPT) 46 U/L (8-55); AST (SGOT) 31 U/L (5-34); Albumin 3.4 g/dL (3.5-5.0); Alkaline Phosphatase 127 U/L (40-150); Anion Gap 12 mmol/L (10-20); BUN (Urea Nitrogen) 22 mg/dL (8.9-20.6); Bilirubin, Total 0.2 mg/dL (0.2-1.2); Calc. Creatinine Clearance 134 mL/min (70-130); Calcium 8.7 mg/dL (7.8-10.44); Carbon Dioxide 30 mmol/L (22-29); Chloride 102 mmol/L (98-107); Estimated GFR-MDRD Greater than 90; Globulin 2.6 g/dL (2.4-3.5); Glucose 92 mg/dL (70-105); Potassium 4.2 mmol/L (3.5-5.1); Sodium 140 mmol/L (136-145)
[2018-04-02] MEDS ORDERED: Potassium Chloride 20 MEQ TAB ONE (08:23)
[2018-04-02 08:32] LABS: #Basophils 0.2 thou/uL (0.0-0.2); #Eosinphils 0.4 thou/uL (0.0-0.7); #Lymphocytes 2.8 thou/uL (1.20-3.40); #Monocytes 0.6 thou/uL (0.11-0.59); #Neutrophils 8.9 thou/uL (1.40-6.50); %Basophils 1.5 % (0.0-1.0); %Eosinophils 3.2 % (0.0-10.0); %Lymphocytes 21.9 % (21.0-51.0); %Monocytes 4.4 % (0.0-10.0); %Neutrophils 69.1 % (42.0-75.0); Hemoglobin 12.9 g/dL (14.0-18.0); Mean Corpuscular HGB CONC 34.4 g/dL (32.0-36.0); Mean Corpuscular Hemoglobin 29.2 pg (27.0-31.0); Mean Corpuscular Volume 84.9 fL (78.0-98.0); Mean Platelet Volume 6.6 fL (7.4-10.4); Platelet Count 255 thou/uL (130-400); RBC Distribution Width 11.7 % (11.5-14.5); White Blood Cell (WBC) Count 12.9 thou/uL (4.8-10.8)
[2018-04-02] MEDS: hydrOXYzine 25 MG TAB PO SCH ×2 (08:53→20:45)
[2018-04-02] MEDS: DULoxetine 30 MG CAP PO SCH (08:53)
[2018-04-02] MEDS: Saccharomyces boulardii 250 MG CAP PO SCH (08:53)
[2018-04-02] MEDS: Potassium Chloride 20 MEQ TAB PO SCH (08:53)
[2018-04-02] MEDS: Famotidine 20 MG TAB PO SCH ×2 (08:53→20:45)
[2018-04-02] MEDS: Fluticasone Propionate Nasal Spray 16 gm Bottle NASAL SCH (08:53)
[2018-04-02] MEDS: Nicotine 21 MG PATCH TOP SCH (08:54)
[2018-04-02] MEDS: busPIRone HCl 5 MG TAB PO SCH ×2 (09:38→20:45)
[2018-04-02 12:29] LABS: CRP (Inflammatory) 2.65 mg/dL (= or < 0.5)
[2018-04-02] MEDS: Ibuprofen 200 MG TAB PO PRN (13:37)
[2018-04-02] MEDS: Gabapentin 300 MG CAP PO PRN (16:43)
[2018-04-02] MEDS: Zolpidem Tartrate 5 MG TAB PO PRN (20:52)
[2018-04-03] MEDS: METHadone HCl 10 MG TAB PO SCH ×4 (05:22→23:57)
[2018-04-03] MEDS: Fluticasone Propionate Nasal Spray 16 gm Bottle NASAL SCH (09:25)
[2018-04-03] MEDS: Nicotine 21 MG PATCH TOP SCH (09:26)
[2018-04-03] MEDS: Famotidine 20 MG TAB PO SCH ×2 (09:28→21:02)
[2018-04-03] MEDS: Saccharomyces boulardii 250 MG CAP PO SCH (09:28)
[2018-04-03] MEDS: busPIRone HCl 5 MG TAB PO SCH ×2 (09:28→21:02)
[2018-04-03] MEDS: DULoxetine 30 MG CAP PO SCH (09:29)
[2018-04-03] MEDS: Potassium Chloride 20 MEQ TAB PO SCH (09:29)
[2018-04-03] MEDS: hydrOXYzine 25 MG TAB PO SCH ×2 (09:29→21:02)
[2018-04-03] MEDS: Gabapentin 300 MG CAP PO PRN ×2 (09:39→23:59)
[2018-04-03] MEDS: Zolpidem Tartrate 5 MG TAB PO PRN (21:02)
[2018-04-04] MEDS: METHadone HCl 10 MG TAB PO SCH ×3 (05:14→18:13)
[2018-04-04] MEDS: DULoxetine 30 MG CAP PO SCH (09:04)
[2018-04-04] MEDS: hydrOXYzine 25 MG TAB PO SCH ×2 (09:04→20:58)
[2018-04-04] MEDS: Saccharomyces boulardii 250 MG CAP PO SCH (09:04)
[2018-04-04] MEDS: busPIRone HCl 5 MG TAB PO SCH ×2 (09:04→20:59)
[2018-04-04] MEDS: Potassium Chloride 20 MEQ TAB PO SCH (09:05)
[2018-04-04] MEDS: Famotidine 20 MG TAB PO SCH ×2 (09:05→20:58)
[2018-04-04] MEDS: Nicotine 21 MG PATCH TOP SCH (09:11)
[2018-04-04] MEDS: Fluticasone Propionate Nasal Spray 16 gm Bottle NASAL SCH (09:11)
[2018-04-04] MEDS: Gabapentin 300 MG CAP PO PRN (15:54)
[2018-04-04] MEDS: Zolpidem Tartrate 5 MG TAB PO PRN (21:07)
[2018-04-05] MEDS: METHadone HCl 10 MG TAB PO SCH ×5 (00:08→23:58)
[2018-04-05] MEDS: hydrOXYzine 25 MG TAB PO SCH ×2 (09:46→21:41)
[2018-04-05] MEDS: busPIRone HCl 5 MG TAB PO SCH ×2 (09:46→21:41)
[2018-04-05] MEDS: Saccharomyces boulardii 250 MG CAP PO SCH (09:46)
[2018-04-05] MEDS: Potassium Chloride 20 MEQ TAB PO SCH (09:46)
[2018-04-05] MEDS: DULoxetine 30 MG CAP PO SCH (09:47)
[2018-04-05] MEDS: Famotidine 20 MG TAB PO SCH ×2 (09:47→21:40)
[2018-04-05] MEDS: Fluticasone Propionate Nasal Spray 16 gm Bottle NASAL SCH (09:47)
[2018-04-05] MEDS: Nicotine 21 MG PATCH TOP SCH (09:48)
[2018-04-05] MEDS: Zolpidem Tartrate 5 MG TAB PO PRN (21:40)
[2018-04-06] MEDS: METHadone HCl 10 MG TAB PO SCH ×3 (05:26→17:17)
[2018-04-06 05:40] LABS: #Basophils 0.1 thou/uL (0.0-0.2); #Eosinphils 0.3 thou/uL (0.0-0.7); #Lymphocytes 2.8 thou/uL (1.20-3.40); #Monocytes 0.7 thou/uL (0.11-0.59); #Neutrophils 5.2 thou/uL (1.40-6.50); %Basophils 0.8 % (0.0-1.0); %Lymphocytes 31.3 % (21.0-51.0); %Monocytes 7.4 % (0.0-10.0); %Neutrophils 57.6 % (42.0-75.0); Hemoglobin 12.6 g/dL (14.0-18.0); Mean Corpuscular HGB CONC 34.6 g/dL (32.0-36.0); Mean Corpuscular Hemoglobin 29.2 pg (27.0-31.0); Mean Corpuscular Volume 84.6 fL (78.0-98.0); Mean Platelet Volume 6.5 fL (7.4-10.4); Platelet Count 252 thou/uL (130-400); Red Blood Cell (RBC) Count 4.32 mill/uL (4.70-6.10)
[2018-04-06 05:54] LABS: ALT (SGPT) 33 U/L (8-55); AST (SGOT) 26 U/L (5-34); Albumin 3.5 g/dL (3.5-5.0); Alkaline Phosphatase 117 U/L (40-150); Anion Gap 11 mmol/L (10-20); BUN (Urea Nitrogen) 25 mg/dL (8.9-20.6); Bilirubin, Total 0.2 mg/dL (0.2-1.2); Calc. Creatinine Clearance 138 mL/min (70-130); Calcium 8.9 mg/dL (7.8-10.44); Carbon Dioxide 29 mmol/L (22-29); Chloride 104 mmol/L (98-107); Estimated GFR-MDRD Greater than 90; Globulin 2.9 g/dL (2.4-3.5); Glucose 96 mg/dL (70-105); Potassium 4.4 mmol/L (3.5-5.1); Protein, Total 6.4 g/dL (6.0-8.3); Sodium 140 mmol/L (136-145)
[2018-04-06] MEDS: DULoxetine 30 MG CAP PO SCH (10:27)
[2018-04-06] MEDS: busPIRone HCl 5 MG TAB PO SCH ×2 (10:28→21:34)
[2018-04-06] MEDS: Famotidine 20 MG TAB PO SCH ×2 (10:28→21:34)
[2018-04-06] MEDS: Fluticasone Propionate Nasal Spray 16 gm Bottle NASAL SCH (10:29)
[2018-04-06] MEDS: Saccharomyces boulardii 250 MG CAP PO SCH (10:29)
[2018-04-06] MEDS: hydrOXYzine 25 MG TAB PO SCH ×2 (10:29→21:34)
[2018-04-06] MEDS: Potassium Chloride 20 MEQ TAB PO SCH (10:29)
[2018-04-06] MEDS: Nicotine 21 MG PATCH TOP SCH (10:34)
[2018-04-06 11:59] LABS: CRP (Inflammatory) 1.44 mg/dL (= or < 0.5)
[2018-04-06] MEDS: Ibuprofen 200 MG TAB PO PRN (17:17)
[2018-04-06] MEDS: Zolpidem Tartrate 5 MG TAB PO PRN (21:34)
[2018-04-06] MEDS: clonazePAM 0.5 MG TAB PO SCH (21:35)
[2018-04-07] MEDS: METHadone HCl 10 MG TAB PO SCH ×5 (00:11→23:57)
[2018-04-07] MEDS ORDERED: clonazePAM 1 MG TAB PO SCH (09:45)
[2018-04-07] MEDS: Fluticasone Propionate Nasal Spray 16 gm Bottle NASAL SCH (10:15)
[2018-04-07] MEDS: DULoxetine 30 MG CAP PO SCH (10:15)
[2018-04-07] MEDS: Saccharomyces boulardii 250 MG CAP PO SCH (10:16)
[2018-04-07] MEDS: busPIRone HCl 5 MG TAB PO SCH ×2 (10:17→20:36)
[2018-04-07] MEDS: Famotidine 20 MG TAB PO SCH ×2 (10:18→20:36)
[2018-04-07] MEDS: hydrOXYzine 25 MG TAB PO SCH ×2 (10:18→20:34)
[2018-04-07] MEDS: Potassium Chloride 20 MEQ TAB PO SCH (10:19)
[2018-04-07] MEDS: Nicotine 21 MG PATCH TOP SCH (10:23)
[2018-04-07] MEDS: clonazePAM 0.5 MG TAB PO SCH (14:47)
[2018-04-07] MEDS: clonazePAM 1 MG TAB PO SCH (20:34)
[2018-04-07] MEDS: Zolpidem Tartrate 5 MG TAB PO PRN (20:36)
[2018-04-08] MEDS: METHadone HCl 10 MG TAB PO SCH ×4 (05:05→23:33)
[2018-04-08] MEDS: Fluticasone Propionate Nasal Spray 16 gm Bottle NASAL SCH (08:45)
[2018-04-08] MEDS: Potassium Chloride 20 MEQ TAB PO SCH (08:46)
[2018-04-08] MEDS: DULoxetine 30 MG CAP PO SCH (08:46)
[2018-04-08] MEDS: hydrOXYzine 25 MG TAB PO SCH ×2 (08:47→20:55)
[2018-04-08] MEDS: clonazePAM 1 MG TAB PO SCH ×2 (08:47→20:54)
[2018-04-08] MEDS: Famotidine 20 MG TAB PO SCH ×2 (08:47→20:55)
[2018-04-08] MEDS: busPIRone HCl 5 MG TAB PO SCH ×2 (08:47→20:54)
[2018-04-08] MEDS: Saccharomyces boulardii 250 MG CAP PO SCH (08:47)
[2018-04-08] MEDS: Nicotine 21 MG PATCH TOP SCH (12:19)
[2018-04-08] MEDS: Zolpidem Tartrate 5 MG TAB PO PRN (20:55)
[2018-04-09] MEDS: Gabapentin 300 MG CAP PO PRN (03:56)
[2018-04-09] MEDS: Ibuprofen 200 MG TAB PO PRN (03:56)
[2018-04-09] MEDS: METHadone HCl 10 MG TAB PO SCH ×3 (05:30→17:45)
[2018-04-09] MEDS: DULoxetine 30 MG CAP PO SCH (09:09)
[2018-04-09] MEDS: Famotidine 20 MG TAB PO SCH ×2 (09:09→20:37)
[2018-04-09] MEDS: Saccharomyces boulardii 250 MG CAP PO SCH (09:09)
[2018-04-09] MEDS: clonazePAM 1 MG TAB PO SCH ×2 (09:10→20:36)
[2018-04-09] MEDS: Nicotine 21 MG PATCH TOP SCH (09:11)
[2018-04-09] MEDS: Fluticasone Propionate Nasal Spray 16 gm Bottle NASAL SCH (09:11)
[2018-04-09] MEDS: Potassium Chloride 20 MEQ TAB PO SCH (09:11)
[2018-04-09] MEDS: hydrOXYzine 25 MG TAB PO SCH ×2 (09:11→20:37)
[2018-04-09] MEDS: busPIRone HCl 5 MG TAB PO SCH ×3 (09:12→20:36)
[2018-04-09] MEDS: Zolpidem Tartrate 5 MG TAB PO PRN (20:36)
[2018-04-10] MEDS: METHadone HCl 10 MG TAB PO SCH ×4 (00:08→17:52)
[2018-04-10] MEDS: Potassium Chloride 20 MEQ TAB PO SCH (09:03)
[2018-04-10] MEDS: Fluticasone Propionate Nasal Spray 16 gm Bottle NASAL SCH (09:03)
[2018-04-10] MEDS: hydrOXYzine 25 MG TAB PO SCH ×2 (09:04→20:46)
[2018-04-10] MEDS: clonazePAM 1 MG TAB PO SCH ×2 (09:04→20:45)
[2018-04-10] MEDS: DULoxetine 30 MG CAP PO SCH (09:04)
[2018-04-10] MEDS: busPIRone HCl 5 MG TAB PO SCH ×2 (09:07→20:45)
[2018-04-10] MEDS: Saccharomyces boulardii 250 MG CAP PO SCH (09:08)
[2018-04-10] MEDS: Nicotine 21 MG PATCH TOP SCH (09:08)
[2018-04-10] MEDS: Famotidine 20 MG TAB PO SCH ×2 (09:08→20:45)
[2018-04-10] MEDS: Gabapentin 300 MG CAP PO PRN (20:45)
[2018-04-10] MEDS: Ibuprofen 200 MG TAB PO PRN (20:45)
[2018-04-10] MEDS: Zolpidem Tartrate 5 MG TAB PO PRN (20:46)
[2018-04-11] MEDS: METHadone HCl 10 MG TAB PO SCH ×5 (06:10→23:58)
[2018-04-11] MEDS: Fluticasone Propionate Nasal Spray 16 gm Bottle NASAL SCH (09:02)
[2018-04-11] MEDS: busPIRone HCl 5 MG TAB PO SCH ×2 (09:03→21:21)
[2018-04-11] MEDS: Saccharomyces boulardii 250 MG CAP PO SCH (09:03)
[2018-04-11] MEDS: Famotidine 20 MG TAB PO SCH ×2 (09:03→21:21)
[2018-04-11] MEDS: hydrOXYzine 25 MG TAB PO SCH ×2 (09:04→21:21)
[2018-04-11] MEDS: clonazePAM 1 MG TAB PO SCH ×2 (09:04→21:22)
[2018-04-11] MEDS: DULoxetine 30 MG CAP PO SCH (09:04)
[2018-04-11] MEDS: Potassium Chloride 20 MEQ TAB PO SCH (09:05)
[2018-04-11] MEDS: Nicotine 21 MG PATCH TOP SCH (09:09)
[2018-04-11] MEDS: Gabapentin 300 MG CAP PO PRN ×2 (13:25→21:21)
[2018-04-11] MEDS: Ibuprofen 200 MG TAB PO PRN (18:04)
[2018-04-11] MEDS: Zolpidem Tartrate 5 MG TAB PO PRN (21:21)
[2018-04-12] MEDS: METHadone HCl 10 MG TAB PO SCH ×4 (05:09→23:59)
[2018-04-12] MEDS: Saccharomyces boulardii 250 MG CAP PO SCH (09:25)
[2018-04-12] MEDS: Fluticasone Propionate Nasal Spray 16 gm Bottle NASAL SCH (09:25)
[2018-04-12] MEDS: Potassium Chloride 20 MEQ TAB PO SCH (09:26)
[2018-04-12] MEDS: DULoxetine 30 MG CAP PO SCH (09:26)
[2018-04-12] MEDS: busPIRone HCl 5 MG TAB PO SCH ×2 (09:26→21:22)
[2018-04-12] MEDS: clonazePAM 1 MG TAB PO SCH ×2 (09:27→21:22)
[2018-04-12] MEDS: Famotidine 20 MG TAB PO SCH ×2 (09:27→21:24)
[2018-04-12] MEDS: hydrOXYzine 25 MG TAB PO SCH ×2 (09:28→21:24)
[2018-04-12] MEDS: Nicotine 21 MG PATCH TOP SCH (09:35)
[2018-04-12] MEDS: Zolpidem Tartrate 5 MG TAB PO PRN (21:22)
[2018-04-13] MEDS: METHadone HCl 10 MG TAB PO SCH ×3 (05:09→17:55)
[2018-04-13] MEDS: Ibuprofen 200 MG TAB PO PRN (09:27)
[2018-04-13] MEDS: clonazePAM 1 MG TAB PO SCH ×2 (09:30→21:06)
[2018-04-13] MEDS: DULoxetine 30 MG CAP PO SCH (09:37)
[2018-04-13] MEDS: hydrOXYzine 25 MG TAB PO SCH ×2 (09:37→21:04)
[2018-04-13] MEDS: busPIRone HCl 5 MG TAB PO SCH ×2 (09:38→21:05)
[2018-04-13] MEDS: Famotidine 20 MG TAB PO SCH ×2 (09:38→21:05)
[2018-04-13] MEDS: Potassium Chloride 20 MEQ TAB PO SCH (09:38)
[2018-04-13] MEDS: Saccharomyces boulardii 250 MG CAP PO SCH (09:38)
[2018-04-13] MEDS: Fluticasone Propionate Nasal Spray 16 gm Bottle NASAL SCH (09:39)
[2018-04-13] MEDS: Nicotine 21 MG PATCH TOP SCH (09:39)
[2018-04-13] MEDS: Zolpidem Tartrate 5 MG TAB PO PRN (21:04)
[2018-04-14] MEDS: METHadone HCl 10 MG TAB PO SCH ×5 (00:01→23:55)
[2018-04-14] MEDS: Potassium Chloride 20 MEQ TAB PO SCH (09:01)
[2018-04-14] MEDS: busPIRone HCl 5 MG TAB PO SCH ×2 (09:02→20:41)
[2018-04-14] MEDS: clonazePAM 1 MG TAB PO SCH ×2 (09:02→20:42)
[2018-04-14] MEDS: Famotidine 20 MG TAB PO SCH ×2 (09:04→20:41)
[2018-04-14] MEDS: DULoxetine 30 MG CAP PO SCH (09:04)
[2018-04-14] MEDS: Fluticasone Propionate Nasal Spray 16 gm Bottle NASAL SCH (09:05)
[2018-04-14] MEDS: hydrOXYzine 25 MG TAB PO SCH ×2 (09:06→20:41)
[2018-04-14] MEDS: Saccharomyces boulardii 250 MG CAP PO SCH (09:06)
[2018-04-14] MEDS: Nicotine 21 MG PATCH TOP SCH (09:20)
[2018-04-14] MEDS: Zolpidem Tartrate 5 MG TAB PO PRN (20:41)
[2018-04-14] MEDS: Ibuprofen 200 MG TAB PO PRN (22:50)
[2018-04-15] MEDS: METHadone HCl 10 MG TAB PO SCH ×3 (05:15→17:59)
[2018-04-15] MEDS: Potassium Chloride 20 MEQ TAB PO SCH (09:01)
[2018-04-15] MEDS: busPIRone HCl 5 MG TAB PO SCH ×2 (09:05→20:57)
[2018-04-15] MEDS: Famotidine 20 MG TAB PO SCH ×2 (09:05→20:57)
[2018-04-15] MEDS: DULoxetine 30 MG CAP PO SCH (09:05)
[2018-04-15] MEDS: clonazePAM 1 MG TAB PO SCH ×2 (09:05→20:56)
[2018-04-15] MEDS: Saccharomyces boulardii 250 MG CAP PO SCH (09:05)
[2018-04-15] MEDS: hydrOXYzine 25 MG TAB PO SCH ×2 (09:05→20:55)
[2018-04-15] MEDS: Nicotine 21 MG PATCH TOP SCH (09:07)
[2018-04-15] MEDS: Fluticasone Propionate Nasal Spray 16 gm Bottle NASAL SCH (09:09)
[2018-04-15] MEDS: Senokot 8.6 MG TAB PO PRN (21:03)
[2018-04-15] MEDS: Zolpidem Tartrate 5 MG TAB PO PRN (21:41)
[2018-04-16] MEDS: METHadone HCl 10 MG TAB PO SCH ×5 (00:56→23:59)
[2018-04-16] MEDS: Ibuprofen 200 MG TAB PO PRN (01:19)
[2018-04-16] MEDS: Gabapentin 300 MG CAP PO PRN (01:19)
[2018-04-16] MEDS: Nicotine 21 MG PATCH TOP SCH (08:31)
[2018-04-16] MEDS: clonazePAM 1 MG TAB PO SCH ×2 (08:32→20:33)
[2018-04-16] MEDS: Potassium Chloride 20 MEQ TAB PO SCH (08:32)
[2018-04-16] MEDS: Saccharomyces boulardii 250 MG CAP PO SCH (08:32)
[2018-04-16] MEDS: DULoxetine 30 MG CAP PO SCH (08:32)
[2018-04-16] MEDS: Fluticasone Propionate Nasal Spray 16 gm Bottle NASAL SCH (08:34)
[2018-04-16] MEDS: hydrOXYzine 25 MG TAB PO SCH ×2 (08:34→20:42)
[2018-04-16] MEDS: busPIRone HCl 5 MG TAB PO SCH ×3 (08:34→20:31)
[2018-04-16] MEDS: Famotidine 20 MG TAB PO SCH ×3 (08:34→20:30)
[2018-04-16] MEDS: Zolpidem Tartrate 5 MG TAB PO PRN (20:32)
[2018-04-16] MEDS: Senokot 8.6 MG TAB PO PRN (20:37)
[2018-04-17] MEDS: METHadone HCl 10 MG TAB PO SCH ×3 (05:15→18:16)
[2018-04-17] MEDS: DULoxetine 30 MG CAP PO SCH (09:10)
[2018-04-17] MEDS: Saccharomyces boulardii 250 MG CAP PO SCH (09:10)
[2018-04-17] MEDS: busPIRone HCl 5 MG TAB PO SCH ×2 (09:10→21:57)
[2018-04-17] MEDS: Potassium Chloride 20 MEQ TAB PO SCH (09:10)
[2018-04-17] MEDS: Nicotine 21 MG PATCH TOP SCH (09:10)
[2018-04-17] MEDS: hydrOXYzine 25 MG TAB PO SCH ×2 (09:11→21:57)
[2018-04-17] MEDS: clonazePAM 1 MG TAB PO SCH ×2 (09:11→21:50)
[2018-04-17] MEDS: Famotidine 20 MG TAB PO SCH ×2 (09:12→21:57)
[2018-04-17] MEDS: Gabapentin 300 MG CAP PO PRN (09:16)
[2018-04-17] MEDS: Ibuprofen 200 MG TAB PO PRN (09:17)
[2018-04-17] MEDS: Fluticasone Propionate Nasal Spray 16 gm Bottle NASAL SCH (12:05)
[2018-04-17] MEDS: Senokot 8.6 MG TAB PO PRN (16:30)
[2018-04-17] MEDS: Zolpidem Tartrate 5 MG TAB PO PRN (21:56)
[2018-04-17] MEDS: Docusate Sodium 100 MG/10 ML UDCUP PO PRN (21:57)
[2018-04-18] MEDS: METHadone HCl 10 MG TAB PO SCH ×3 (00:01→12:27)
[2018-04-18] MEDS: hydrOXYzine 25 MG TAB PO SCH ×2 (09:18→20:24)
[2018-04-18] MEDS: Senokot 8.6 MG TAB PO PRN ×2 (09:19→20:23)
[2018-04-18] MEDS: Saccharomyces boulardii 250 MG CAP PO SCH (09:19)
[2018-04-18] MEDS: busPIRone HCl 5 MG TAB PO SCH ×2 (09:19→20:23)
[2018-04-18] MEDS: Famotidine 20 MG TAB PO SCH ×2 (09:20→20:24)
[2018-04-18] MEDS: DULoxetine 30 MG CAP PO SCH (09:20)
[2018-04-18] MEDS: clonazePAM 1 MG TAB PO SCH ×2 (09:20→20:24)
[2018-04-18] MEDS: Potassium Chloride 20 MEQ TAB PO SCH (09:21)
[2018-04-18] MEDS: Polyethylene Glycol 3350 17 GM Packet PO SCH (09:22)
[2018-04-18] MEDS: Nicotine 21 MG PATCH TOP SCH (09:35)
[2018-04-18] MEDS: Fluticasone Propionate Nasal Spray 16 gm Bottle NASAL SCH (09:35)
[2018-04-18] MEDS: METHADONE PO SCH ×2 (18:00→23:57)
[2018-04-18] MEDS: Zolpidem Tartrate 5 MG TAB PO PRN (20:24)
[2018-04-19] MEDS: METHADONE PO SCH ×2 (05:32→12:06)
[2018-04-19] MEDS: DULoxetine 30 MG CAP PO SCH (09:36)
[2018-04-19] MEDS: Potassium Chloride 20 MEQ TAB PO SCH (09:36)
[2018-04-19] MEDS: clonazePAM 1 MG TAB PO SCH ×2 (09:37→20:49)
[2018-04-19] MEDS: Famotidine 20 MG TAB PO SCH ×2 (09:38→20:48)
[2018-04-19] MEDS: hydrOXYzine 25 MG TAB PO SCH ×2 (09:39→20:49)
[2018-04-19] MEDS: Saccharomyces boulardii 250 MG CAP PO SCH (09:39)
[2018-04-19] MEDS: Nicotine 21 MG PATCH TOP SCH (09:39)
[2018-04-19] MEDS: Fluticasone Propionate Nasal Spray 16 gm Bottle NASAL SCH (09:43)
[2018-04-19] MEDS: Polyethylene Glycol 3350 17 GM Packet PO SCH (09:43)
[2018-04-19] MEDS: busPIRone HCl 5 MG TAB PO SCH ×2 (12:05→20:48)
[2018-04-19] MEDS: Gabapentin 300 MG CAP PO PRN ×2 (13:34→21:57)
[2018-04-19] MEDS: Ibuprofen 200 MG TAB PO PRN ×2 (13:34→22:00)
[2018-04-19] MEDS: METHadone HCl 10 MG TAB PO SCH (18:09)
[2018-04-19] MEDS: Zolpidem Tartrate 5 MG TAB PO PRN (20:49)
[2018-04-20] MEDS: METHadone HCl 10 MG TAB PO SCH ×4 (00:04→18:15)
[2018-04-20] MEDS: Gabapentin 300 MG CAP PO PRN ×2 (05:51→15:28)
[2018-04-20] MEDS: Ibuprofen 200 MG TAB PO PRN ×2 (05:51→15:28)
[2018-04-20] MEDS: Fluticasone Propionate Nasal Spray 16 gm Bottle NASAL SCH (08:23)
[2018-04-20] MEDS: clonazePAM 1 MG TAB PO SCH ×2 (08:24→21:21)
[2018-04-20] MEDS: Polyethylene Glycol 3350 17 GM Packet PO SCH ×3 (08:24→08:29)
[2018-04-20] MEDS: busPIRone HCl 5 MG TAB PO SCH ×2 (08:24→21:21)
[2018-04-20] MEDS: Saccharomyces boulardii 250 MG CAP PO SCH (08:24)
[2018-04-20] MEDS: DULoxetine 30 MG CAP PO SCH (08:24)
[2018-04-20] MEDS: Potassium Chloride 20 MEQ TAB PO SCH (08:24)
[2018-04-20] MEDS: Nicotine 21 MG PATCH TOP SCH (08:25)
[2018-04-20] MEDS: Famotidine 20 MG TAB PO SCH ×2 (08:25→21:21)
[2018-04-20] MEDS: hydrOXYzine 25 MG TAB PO SCH ×2 (08:25→21:20)
[2018-04-20] MEDS ORDERED: oFLOXacin 0.3% Opth 5 ML BOT ONE (13:44)
[2018-04-20] MEDS: Zolpidem Tartrate 5 MG TAB PO PRN (21:20)
[2018-04-21] MEDS: Gabapentin 300 MG CAP PO PRN ×3 (00:15→12:44)
[2018-04-21] MEDS: METHadone HCl 10 MG TAB PO SCH ×5 (00:15→23:58)
[2018-04-21] MEDS: Ibuprofen 200 MG TAB PO PRN ×2 (05:38→12:44)
[2018-04-21] MEDS: busPIRone HCl 5 MG TAB PO SCH ×2 (09:44→20:41)
[2018-04-21] MEDS: Saccharomyces boulardii 250 MG CAP PO SCH (09:44)
[2018-04-21] MEDS: DULoxetine 30 MG CAP PO SCH (09:44)
[2018-04-21] MEDS: Potassium Chloride 20 MEQ TAB PO SCH (09:45)
[2018-04-21] MEDS: clonazePAM 1 MG TAB PO SCH ×2 (09:45→20:42)
[2018-04-21] MEDS: Famotidine 20 MG TAB PO SCH ×2 (09:45→20:42)
[2018-04-21] MEDS: hydrOXYzine 25 MG TAB PO SCH ×2 (09:45→20:42)
[2018-04-21] MEDS: Polyethylene Glycol 3350 17 GM Packet PO SCH (09:50)
[2018-04-21] MEDS: Nicotine 21 MG PATCH TOP SCH (09:55)
[2018-04-21] MEDS: Fluticasone Propionate Nasal Spray 16 gm Bottle NASAL SCH (09:56)
[2018-04-21] MEDS: Zolpidem Tartrate 5 MG TAB PO PRN (20:42)
[2018-04-22] MEDS: METHadone HCl 10 MG TAB PO SCH ×3 (06:21→17:57)
[2018-04-22] MEDS: clonazePAM 1 MG TAB PO SCH ×2 (09:25→20:24)
[2018-04-22] MEDS: hydrOXYzine 25 MG TAB PO SCH ×2 (09:25→20:25)
[2018-04-22] MEDS: Potassium Chloride 20 MEQ TAB PO SCH (09:25)
[2018-04-22] MEDS: busPIRone HCl 5 MG TAB PO SCH ×2 (09:26→20:22)
[2018-04-22] MEDS: Saccharomyces boulardii 250 MG CAP PO SCH (09:26)
[2018-04-22] MEDS: Famotidine 20 MG TAB PO SCH ×2 (09:27→20:23)
[2018-04-22] MEDS: Nicotine 21 MG PATCH TOP SCH (09:27)
[2018-04-22] MEDS: DULoxetine 30 MG CAP PO SCH (09:28)
[2018-04-22] MEDS: Fluticasone Propionate Nasal Spray 16 gm Bottle NASAL SCH (09:29)
[2018-04-22] MEDS: Polyethylene Glycol 3350 17 GM Packet PO SCH (09:33)
[2018-04-22] MEDS: Ibuprofen 200 MG TAB PO PRN (12:51)
[2018-04-22] MEDS: Gabapentin 300 MG CAP PO PRN (12:51)
[2018-04-22] MEDS: Zolpidem Tartrate 5 MG TAB PO PRN (20:23)
[2018-04-23] MEDS: METHadone HCl 10 MG TAB PO SCH ×4 (00:16→17:33)
[2018-04-23] MEDS: DULoxetine 30 MG CAP PO SCH (08:04)
[2018-04-23] MEDS: Fluticasone Propionate Nasal Spray 16 gm Bottle NASAL SCH (08:04)
[2018-04-23] MEDS: Saccharomyces boulardii 250 MG CAP PO SCH (08:05)
[2018-04-23] MEDS: Famotidine 20 MG TAB PO SCH ×2 (08:05→20:32)
[2018-04-23] MEDS: hydrOXYzine 25 MG TAB PO SCH ×2 (08:05→20:32)
[2018-04-23] MEDS: busPIRone HCl 5 MG TAB PO SCH ×2 (08:05→20:32)
[2018-04-23] MEDS: clonazePAM 1 MG TAB PO SCH ×2 (08:05→20:33)
[2018-04-23] MEDS: Potassium Chloride 20 MEQ TAB PO SCH (08:05)
[2018-04-23] MEDS: Polyethylene Glycol 3350 17 GM Packet PO SCH (08:06)
[2018-04-23] MEDS: Nicotine 21 MG PATCH TOP SCH (08:12)
[2018-04-23] MEDS: Gabapentin 300 MG CAP PO PRN (11:29)
[2018-04-23] MEDS: Zolpidem Tartrate 5 MG TAB PO PRN (20:32)
[2018-04-24] MEDS: METHadone HCl 10 MG TAB PO SCH ×4 (00:09→17:59)
[2018-04-24] MEDS: DULoxetine 30 MG CAP PO SCH (09:15)
[2018-04-24] MEDS: Nicotine 21 MG PATCH TOP SCH (09:15)
[2018-04-24] MEDS: Fluticasone Propionate Nasal Spray 16 gm Bottle NASAL SCH (09:15)
[2018-04-24] MEDS: Polyethylene Glycol 3350 17 GM Packet PO SCH (09:15)
[2018-04-24] MEDS: hydrOXYzine 25 MG TAB PO SCH ×2 (09:16→20:18)
[2018-04-24] MEDS: clonazePAM 1 MG TAB PO SCH ×2 (09:16→20:18)
[2018-04-24] MEDS: busPIRone HCl 5 MG TAB PO SCH ×2 (09:16→20:18)
[2018-04-24] MEDS: Famotidine 20 MG TAB PO SCH ×2 (09:16→20:18)
[2018-04-24] MEDS: Saccharomyces boulardii 250 MG CAP PO SCH (09:16)
[2018-04-24] MEDS: Potassium Chloride 20 MEQ TAB PO SCH (09:16)
[2018-04-24] MEDS: Ibuprofen 200 MG TAB PO PRN (18:13)
[2018-04-24] MEDS: Gabapentin 300 MG CAP PO PRN (18:14)
[2018-04-24] MEDS: Zolpidem Tartrate 5 MG TAB PO PRN (20:17)
[2018-04-25] MEDS: METHadone HCl 10 MG TAB PO SCH ×4 (00:23→18:21)
[2018-04-25] MEDS: Gabapentin 300 MG CAP PO PRN ×3 (05:53→18:22)
[2018-04-25] MEDS: Ibuprofen 200 MG TAB PO PRN ×2 (05:53→18:22)
[2018-04-25] MEDS: clonazePAM 1 MG TAB PO SCH ×2 (08:56→20:40)
[2018-04-25] MEDS: DULoxetine 30 MG CAP PO SCH (08:56)
[2018-04-25] MEDS: Saccharomyces boulardii 250 MG CAP PO SCH (08:56)
[2018-04-25] MEDS: busPIRone HCl 5 MG TAB PO SCH ×2 (08:56→20:40)
[2018-04-25] MEDS: Potassium Chloride 20 MEQ TAB PO SCH (08:56)
[2018-04-25] MEDS: hydrOXYzine 25 MG TAB PO SCH ×2 (08:57→20:41)
[2018-04-25] MEDS: Polyethylene Glycol 3350 17 GM Packet PO SCH (08:57)
[2018-04-25] MEDS: Famotidine 20 MG TAB PO SCH ×2 (08:57→20:40)
[2018-04-25] MEDS: Fluticasone Propionate Nasal Spray 16 gm Bottle NASAL SCH (08:59)
[2018-04-25] MEDS: Nicotine 21 MG PATCH TOP SCH (09:00)
[2018-04-25] MEDS: Zolpidem Tartrate 5 MG TAB PO PRN (20:40)
[2018-04-26] MEDS: METHadone HCl 10 MG TAB PO SCH ×4 (00:17→17:46)
[2018-04-26] MEDS: clonazePAM 1 MG TAB PO SCH ×2 (08:39→20:20)
[2018-04-26] MEDS: Potassium Chloride 20 MEQ TAB PO SCH (08:40)
[2018-04-26] MEDS: hydrOXYzine 25 MG TAB PO SCH ×2 (08:40→20:20)
[2018-04-26] MEDS: Fluticasone Propionate Nasal Spray 16 gm Bottle NASAL SCH (08:40)
[2018-04-26] MEDS: busPIRone HCl 5 MG TAB PO SCH ×2 (08:41→20:20)
[2018-04-26] MEDS: DULoxetine 30 MG CAP PO SCH (08:41)
[2018-04-26] MEDS: Saccharomyces boulardii 250 MG CAP PO SCH (08:41)
[2018-04-26] MEDS: Famotidine 20 MG TAB PO SCH ×2 (08:41→20:20)
[2018-04-26] MEDS: Polyethylene Glycol 3350 17 GM Packet PO SCH (08:43)
[2018-04-26] MEDS: Nicotine 21 MG PATCH TOP SCH (08:44)
[2018-04-26] MEDS: Ibuprofen 200 MG TAB PO PRN (13:31)
[2018-04-26] MEDS: Gabapentin 300 MG CAP PO PRN (13:32)
[2018-04-26] MEDS: Ondansetron ODT 4 MG TAB PO PRN (13:36)
[2018-04-26] MEDS: Senokot 8.6 MG TAB PO PRN (20:20)
[2018-04-27] MEDS: METHadone HCl 10 MG TAB PO SCH ×4 (00:09→18:37)
[2018-04-27] MEDS ORDERED: Dicyclomine 20 MG TAB PO PRN (07:59)
[2018-04-27] MEDS: Potassium Chloride 20 MEQ TAB PO SCH (08:59)
[2018-04-27] MEDS: DULoxetine 30 MG CAP PO SCH (10:00)
[2018-04-27] MEDS: clonazePAM 1 MG TAB PO SCH ×2 (10:00→22:21)
[2018-04-27] MEDS: Famotidine 20 MG TAB PO SCH ×2 (10:00→22:21)
[2018-04-27] MEDS: busPIRone HCl 5 MG TAB PO SCH ×2 (10:00→22:20)
[2018-04-27] MEDS: hydrOXYzine 25 MG TAB PO SCH ×2 (10:01→22:21)
[2018-04-27] MEDS: Fluticasone Propionate Nasal Spray 16 gm Bottle NASAL SCH (10:01)
[2018-04-27] MEDS: Saccharomyces boulardii 250 MG CAP PO SCH (10:02)
[2018-04-27] MEDS: Polyethylene Glycol 3350 17 GM Packet PO SCH (10:02)
[2018-04-27] MEDS: Nicotine 21 MG PATCH TOP SCH (11:26)
[2018-04-27] MEDS: Ondansetron ODT 4 MG TAB PO PRN (15:44)
[2018-04-27] MEDS: Gabapentin 300 MG CAP PO PRN (15:44)
[2018-04-27] MEDS: Ibuprofen 200 MG TAB PO PRN (15:44)
[2018-04-27] MEDS: Mirtazapine 15 MG TAB PO SCH (22:21)
[2018-04-28] MEDS: METHadone HCl 10 MG TAB PO SCH ×5 (00:16→23:52)
[2018-04-28] MEDS: Fluticasone Propionate Nasal Spray 16 gm Bottle NASAL SCH (10:42)
[2018-04-28] MEDS: Polyethylene Glycol 3350 17 GM Packet PO SCH (10:43)
[2018-04-28] MEDS: clonazePAM 1 MG TAB PO SCH ×2 (10:43→20:40)
[2018-04-28] MEDS: hydrOXYzine 25 MG TAB PO SCH ×2 (10:43→20:39)
[2018-04-28] MEDS: Famotidine 20 MG TAB PO SCH ×2 (10:43→20:39)
[2018-04-28] MEDS: Saccharomyces boulardii 250 MG CAP PO SCH (10:43)
[2018-04-28] MEDS: busPIRone HCl 5 MG TAB PO SCH ×2 (10:43→20:37)
[2018-04-28] MEDS: Potassium Chloride 20 MEQ TAB PO SCH (10:43)
[2018-04-28] MEDS: Nicotine 21 MG PATCH TOP SCH (10:44)
[2018-04-28] MEDS: DULoxetine 30 MG CAP PO SCH (10:44)
[2018-04-28] MEDS: Senokot 8.6 MG TAB PO PRN (11:49)
[2018-04-28] MEDS: Gabapentin 300 MG CAP PO PRN (11:49)
[2018-04-28] MEDS: Ibuprofen 200 MG TAB PO PRN (11:49)
[2018-04-28] MEDS: Zolpidem Tartrate 5 MG TAB PO PRN (20:39)
[2018-04-28] MEDS: Mirtazapine 15 MG TAB PO SCH (20:39)
[2018-04-29] MEDS: METHadone HCl 10 MG TAB PO SCH ×3 (05:06→17:26)
[2018-04-29] MEDS: Ibuprofen 200 MG TAB PO PRN ×2 (05:08→19:08)
[2018-04-29] MEDS: Gabapentin 300 MG CAP PO PRN ×2 (05:08→19:08)
[2018-04-29] MEDS: Saccharomyces boulardii 250 MG CAP PO SCH (09:40)
[2018-04-29] MEDS: DULoxetine 30 MG CAP PO SCH (09:40)
[2018-04-29] MEDS: clonazePAM 1 MG TAB PO SCH ×2 (09:40→21:23)
[2018-04-29] MEDS: busPIRone HCl 5 MG TAB PO SCH ×2 (09:40→21:22)
[2018-04-29] MEDS: Potassium Chloride 20 MEQ TAB PO SCH (09:40)
[2018-04-29] MEDS: Famotidine 20 MG TAB PO SCH ×2 (09:40→21:23)
[2018-04-29] MEDS: hydrOXYzine 25 MG TAB PO SCH ×2 (09:41→21:23)
[2018-04-29] MEDS: Fluticasone Propionate Nasal Spray 16 gm Bottle NASAL SCH (09:42)
[2018-04-29] MEDS: Nicotine 21 MG PATCH TOP SCH (09:42)
[2018-04-29] MEDS: Polyethylene Glycol 3350 17 GM Packet PO SCH (09:47)
[2018-04-29] MEDS: Mirtazapine 15 MG TAB PO SCH (21:22)
[2018-04-29] MEDS: Zolpidem Tartrate 5 MG TAB PO PRN (21:26)
[2018-04-30] MEDS: METHadone HCl 10 MG TAB PO SCH ×4 (00:28→17:18)
[2018-04-30 05:18] VITALS: BMI 24.9
[2018-04-30] MEDS: busPIRone HCl 5 MG TAB PO SCH ×2 (09:15→21:27)
[2018-04-30] MEDS: DULoxetine 30 MG CAP PO SCH (09:15)
[2018-04-30] MEDS: clonazePAM 1 MG TAB PO SCH ×2 (09:15→21:27)
[2018-04-30] MEDS: Famotidine 20 MG TAB PO SCH ×2 (09:15→21:27)
[2018-04-30] MEDS: Senokot 8.6 MG TAB PO PRN (09:15)
[2018-04-30] MEDS: hydrOXYzine 25 MG TAB PO SCH ×2 (09:15→21:28)
[2018-04-30] MEDS: Polyethylene Glycol 3350 17 GM Packet PO SCH (09:16)
[2018-04-30] MEDS: Saccharomyces boulardii 250 MG CAP PO SCH (09:16)
[2018-04-30] MEDS: Potassium Chloride 20 MEQ TAB PO SCH (09:16)
[2018-04-30] MEDS: Fluticasone Propionate Nasal Spray 16 gm Bottle NASAL SCH (09:22)
[2018-04-30] MEDS: Nicotine 14 MG PATCH TOP SCH (09:23)
[2018-04-30] MEDS: Gabapentin 300 MG CAP PO PRN (15:53)
[2018-04-30] MEDS: Ibuprofen 200 MG TAB PO PRN (15:53)
[2018-04-30] MEDS: Mirtazapine 15 MG TAB PO SCH (21:28)
[2018-04-30] MEDS: Zolpidem Tartrate 5 MG TAB PO PRN (21:28)
[2018-05-01] MEDS: METHadone HCl 10 MG TAB PO SCH ×4 (00:11→18:23)
[2018-05-01] MEDS: busPIRone HCl 5 MG TAB PO SCH ×2 (09:25→21:25)
[2018-05-01] MEDS: Potassium Chloride 20 MEQ TAB PO SCH (09:26)
[2018-05-01] MEDS: Saccharomyces boulardii 250 MG CAP PO SCH (09:26)
[2018-05-01] MEDS: DULoxetine 30 MG CAP PO SCH (09:26)
[2018-05-01] MEDS: Fluticasone Propionate Nasal Spray 16 gm Bottle NASAL SCH (09:27)
[2018-05-01] MEDS: Famotidine 20 MG TAB PO SCH ×2 (09:27→21:26)
[2018-05-01] MEDS: clonazePAM 1 MG TAB PO SCH ×2 (09:27→21:26)
[2018-05-01] MEDS: hydrOXYzine 25 MG TAB PO SCH ×2 (09:27→21:26)
[2018-05-01] MEDS: Nicotine 14 MG PATCH TOP SCH (09:28)
[2018-05-01] MEDS: Polyethylene Glycol 3350 17 GM Packet PO SCH (09:28)
[2018-05-01] MEDS: Zolpidem Tartrate 5 MG TAB PO PRN (21:26)
[2018-05-01] MEDS: Mirtazapine 15 MG TAB PO SCH (21:27)
[2018-05-02] MEDS: METHadone HCl 10 MG TAB PO SCH ×5 (00:20→23:58)
[2018-05-02] MEDS: Ibuprofen 200 MG TAB PO PRN ×2 (00:20→14:56)
[2018-05-02] MEDS: Gabapentin 300 MG CAP PO PRN ×2 (00:21→14:54)
[2018-05-02] MEDS: hydrOXYzine 25 MG TAB PO SCH ×2 (09:05→21:12)
[2018-05-02] MEDS: DULoxetine 30 MG CAP PO SCH (09:05)
[2018-05-02] MEDS: Potassium Chloride 20 MEQ TAB PO SCH (09:05)
[2018-05-02] MEDS: busPIRone HCl 5 MG TAB PO SCH ×2 (09:06→21:11)
[2018-05-02] MEDS: clonazePAM 1 MG TAB PO SCH ×2 (09:06→21:12)
[2018-05-02] MEDS: Nicotine 14 MG PATCH TOP SCH (09:06)
[2018-05-02] MEDS: Famotidine 20 MG TAB PO SCH ×2 (09:07→21:12)
[2018-05-02] MEDS: Saccharomyces boulardii 250 MG CAP PO SCH (09:08)
[2018-05-02] MEDS: Polyethylene Glycol 3350 17 GM Packet PO SCH (09:08)
[2018-05-02] MEDS: Fluticasone Propionate Nasal Spray 16 gm Bottle NASAL SCH (09:10)
[2018-05-02] MEDS: Zolpidem Tartrate 5 MG TAB PO PRN (21:12)
[2018-05-02] MEDS: Mirtazapine 15 MG TAB PO SCH (21:12)
[2018-05-03] MEDS: METHadone HCl 10 MG TAB PO SCH ×4 (05:16→23:54)
[2018-05-03] MEDS: Fluticasone Propionate Nasal Spray 16 gm Bottle NASAL SCH (09:26)
[2018-05-03] MEDS: Ibuprofen 200 MG TAB PO PRN (09:26)
[2018-05-03] MEDS: Gabapentin 300 MG CAP PO PRN (09:26)
[2018-05-03] MEDS: Nicotine 14 MG PATCH TOP SCH (09:26)
[2018-05-03] MEDS: hydrOXYzine 25 MG TAB PO SCH ×2 (09:27→20:40)
[2018-05-03] MEDS: Saccharomyces boulardii 250 MG CAP PO SCH (09:27)
[2018-05-03] MEDS: busPIRone HCl 5 MG TAB PO SCH ×2 (09:27→20:40)
[2018-05-03] MEDS: Famotidine 20 MG TAB PO SCH ×2 (09:27→20:40)
[2018-05-03] MEDS: DULoxetine 30 MG CAP PO SCH (09:27)
[2018-05-03] MEDS: clonazePAM 1 MG TAB PO SCH ×2 (09:27→20:40)
[2018-05-03] MEDS: Potassium Chloride 20 MEQ TAB PO SCH (09:27)
[2018-05-03] MEDS: Polyethylene Glycol 3350 17 GM Packet PO SCH (09:28)
[2018-05-03] MEDS ORDERED: Polyethylene Glycol 3350 17 GM Packet PO SCH (12:45)
[2018-05-03] MEDS: Mirtazapine 15 MG TAB PO SCH (20:40)
[2018-05-03] MEDS: Zolpidem Tartrate 5 MG TAB PO PRN (20:40)
[2018-05-03] MEDS: Ondansetron ODT 4 MG TAB PO PRN (23:54)
[2018-05-04] MEDS: Gabapentin 300 MG CAP PO PRN ×2 (05:42→21:05)
[2018-05-04] MEDS: METHadone HCl 10 MG TAB PO SCH ×3 (05:42→18:00)
[2018-05-04] MEDS: Nicotine 14 MG PATCH TOP SCH (09:27)
[2018-05-04] MEDS: busPIRone HCl 5 MG TAB PO SCH ×2 (09:28→21:02)
[2018-05-04] MEDS: Potassium Chloride 20 MEQ TAB PO SCH (09:28)
[2018-05-04] MEDS: DULoxetine 30 MG CAP PO SCH (09:28)
[2018-05-04] MEDS: Saccharomyces boulardii 250 MG CAP PO SCH (09:29)
[2018-05-04] MEDS: clonazePAM 1 MG TAB PO SCH ×2 (09:29→21:02)
[2018-05-04] MEDS: Famotidine 20 MG TAB PO SCH ×2 (09:29→21:02)
[2018-05-04] MEDS: hydrOXYzine 25 MG TAB PO SCH ×2 (09:29→21:02)
[2018-05-04] MEDS: Fluticasone Propionate Nasal Spray 16 gm Bottle NASAL SCH (09:30)
[2018-05-04] MEDS: Polyethylene Glycol 3350 17 GM Packet PO SCH (09:34)
[2018-05-04] MEDS: Docusate Sodium 100 MG/10 ML UDCUP PO PRN (12:45)
[2018-05-04] MEDS: Mirtazapine 15 MG TAB PO SCH (21:02)
[2018-05-04] MEDS: Zolpidem Tartrate 5 MG TAB PO PRN (21:02)
[2018-05-04] MEDS: Ibuprofen 200 MG TAB PO PRN (21:05)
[2018-05-05] MEDS: METHadone HCl 10 MG TAB PO SCH ×2 (00:08→06:40)
[2018-05-05 06:37] LABS: #Basophils 0.1 thou/uL (0.0-0.2); #Eosinphils 0.2 thou/uL (0.0-0.7); #Lymphocytes 2.6 thou/uL (1.20-3.40); #Monocytes 0.4 thou/uL (0.11-0.59); #Neutrophils 8.5 thou/uL (1.40-6.50); %Basophils 0.5 % (0.0-1.0); %Eosinophils 1.5 % (0.0-10.0); %Lymphocytes 22.3 % (21.0-51.0); %Monocytes 3.3 % (0.0-10.0); %Neutrophils 72.5 % (42.0-75.0); Hemoglobin 13.9 g/dL (14.0-18.0); Mean Corpuscular HGB CONC 32.2 g/dL (32.0-36.0); Mean Corpuscular Hemoglobin 28.4 pg (27.0-31.0); Mean Corpuscular Volume 88.2 fL (78.0-98.0); Mean Platelet Volume 6.1 fL (7.4-10.4); Platelet Count 248 thou/uL (130-400); Red Blood Cell (RBC) Count 4.89 mill/uL (4.70-6.10); White Blood Cell (WBC) Count 11.7 thou/uL (4.8-10.8)
[2018-05-05] MEDS ORDERED: Sodium Chloride 0.9% 20 ML ONE (06:40)
[2018-05-05] MEDS: Ondansetron ODT 4 MG TAB PO PRN (06:41)
[2018-05-05] MEDS: Ibuprofen 200 MG TAB PO PRN (06:41)
[2018-05-05 07:13] LABS: ALT (SGPT) 43 U/L (8-55); AST (SGOT) 22 U/L (5-34); Albumin 4.1 g/dL (3.5-5.0); Alkaline Phosphatase 168 U/L (40-150); Anion Gap 21 mmol/L (10-20); BUN (Urea Nitrogen) 24 mg/dL (8.9-20.6); Bilirubin, Total 0.4 mg/dL (0.2-1.2); Calc. Creatinine Clearance 145 mL/min (70-130); Calcium 9.2 mg/dL (7.8-10.44); Carbon Dioxide 24 mmol/L (22-29); Chloride 102 mmol/L (98-107); Estimated GFR-MDRD Greater than 90; Globulin 2.4 g/dL (2.4-3.5); Glucose 107 mg/dL (70-105); Potassium 3.9 mmol/L (3.5-5.1); Protein, Total 6.5 g/dL (6.0-8.3); Sodium 143 mmol/L (136-145)
[2018-05-05] MEDS ORDERED: Sodium Chloride 0.9% 1,000 ML IV SCH (08:00)
--- NOTE | 2018-05-05 08:36 | RAD ---
KUB: Date: 05/05/18 INDICATION: Constipation. COMPARISON: None. IMPRESSION: There is a prominent amount of retained stool within the colon and rectum. There are fractured thorac olumbar rods at approximately L3 level. There is IVC filter seen right of midline at L2-3. POS: [facility]
--- NOTE | 2018-05-05 09:05 | RAD ---
CHEST 1 VIEW: Date: 05/05/18 INDICATION: History of fever. COMPARISON: Prior exam dated 09/25/17. FINDINGS: There is air space opacity in the right lower lobe. Left lung is clear. No acute osseous abnormality is evident. IMPRESSION: Air space opacity right lower lobe may reflect subsegmental atelectasis or pneumonia. POS: [facility]
[2018-05-05] MEDS: Polyethylene Glycol 3350 17 GM Packet PO SCH (09:24)
[2018-05-05] MEDS: clonazePAM 1 MG TAB PO SCH (09:24)
[2018-05-05] MEDS: hydrOXYzine 25 MG TAB PO SCH (09:24)
[2018-05-05] MEDS: Potassium Chloride 20 MEQ TAB PO SCH (09:25)
[2018-05-05] MEDS: DULoxetine 30 MG CAP PO SCH (09:25)
[2018-05-05] MEDS: Famotidine 20 MG TAB PO SCH (09:25)
[2018-05-05] MEDS: busPIRone HCl 5 MG TAB PO SCH (09:26)
[2018-05-05] MEDS: Saccharomyces boulardii 250 MG CAP PO SCH (09:27)
[2018-05-05] MEDS: Fluticasone Propionate Nasal Spray 16 gm Bottle NASAL SCH (09:30)
[2018-05-05] MEDS: Nicotine 14 MG PATCH TOP SCH (09:30)
[2018-05-05] MEDS ORDERED: Vancomycin HCl 1 GM in Sodium Chloride 0.9% 250 ML 250 ML IVPB SCH (10:00)
[2018-05-05 10:42] VITALS: BP 93/54; TEMP 99.4
[2018-05-05] MEDS ORDERED: Bisacodyl 10 MG SUPP PR SCH (10:45)
[2018-05-05] MEDS ORDERED: Docusate 100 MG CAP PO SCH (11:00)
[2018-05-05 11:32] LABS: Clarity Clear (Clear); Leukocyte Trace (Negative); Nitrite Negative (Negative)
[2018-05-05 11:33] LABS: Bilirubin Negative (Negative); Blood, Urine Negative (Negative); Glucose, Urine (Dipstick) Negative (Negative); Protein, Urine (Dipstick) Negative (Neg-Trace)
[2018-05-05 11:36] LABS: Bacteria/HPF Rare-Few HPF (None Seen); RBC/HPF 0-3 HPF (0-3); Squamous Epithelial 0-3 HPF (0-3); WBC/HPF 0-3 HPF (0-3)
[2018-05-05 11:38] LABS: Urine Culture Reflex Yes Yes
--- NOTE | 2018-05-05 14:37 | RAD ---
LUMBAR SPINE 2 VIEWS: Date: 05/05/18 HISTORY: Back pain. History of multiple surgeries. COMPARISON: 01/23/17 study. FINDINGS: Bilateral pedicle screws are seen at L3, L4, and L5 with vertical connecting rods. Compression change s of L3 vertebral body again demonstrated. A second set of pedicle screws and vertical connecting shayne s extend from T11 to L2. This discontinuity is uncertain whether this is on the basis of hardware araceli lure of the vertical connecting rods or this was two sets of pedicle screw placement. I would suspect it is on the basis of hardware failure, but is a stable finding. An IVC filter is incidentally seen. IMPRESSION: Stable postop changes of the spine. POS: [facility]
[2018-05-05] MEDS ORDERED: Senokot 8.6 MG TAB PO SCH (21:00)
[2018-05-06] MEDS ORDERED: Bisacodyl 10 MG SUPP PR SCH (09:00)
[2018-05-06] MEDS ORDERED: Docusate 100 MG CAP PO SCH (09:00)
== END 2018-05-05 12:31 | disposition critical access hospital (66) | DRG 592 ==
LOC: BURMED 10:52
PROVIDERS: ADMIT Family Medicine; ATTEND Family Medicine
DX: L89.154 Pressure ulcer of sacral region, stage 4 (principal); A41.9 Sepsis, unspecified organism; J18.9 Pneumonia, unspecified organism; G82.20 Paraplegia, unspecified; I95.9 Hypotension, unspecified; G62.9 Polyneuropathy, unspecified; N31.9 Neuromuscular dysfunction of bladder, unspecified; F20.9 Schizophrenia, unspecified; G47.00 Insomnia, unspecified; F41.9 Anxiety disorder, unspecified; R09.02 Hypoxemia; K59.00 Constipation, unspecified; Z79.899 Other long term (current) drug therapy
CPT/HCPCS: 36415; 71045; 72100; 74018; 80053; 81001; 83605; 85025; 85652; 86140; 87040; 87086; 87804; 97602; J1956; J3370; J7050; Q0162

== ENCOUNTER 2018-05-05 12:35 | Inpatient (IN) | payer MEDICARE ==
[2018-05-05] MEDS ORDERED: Acetaminophen 325 MG TAB PO PRN (13:28)
[2018-05-05] MEDS ORDERED: Dicyclomine 20 MG TAB PO PRN (13:29)
[2018-05-05] MEDS ORDERED: Docusate Sodium 100 MG/10 ML UDCUP PO PRN (13:35)
[2018-05-05] MEDS ORDERED: Loratadine 10 MG TAB PO PRN (13:35)
[2018-05-05] MEDS: Vancomycin HCl 1 GM in Sodium Chloride 0.9% 250 ML 250 ML IVPB SCH ×2 (14:18→21:10)
[2018-05-05] MEDS ORDERED: Bisacodyl 10 MG SUPP PR PRN (14:34)
[2018-05-05] MEDS ORDERED: METHadone HCl 10 MG TAB PO SCH (15:30)
[2018-05-05 18:28] LABS: #Basophils 0.1 thou/uL (0.0-0.2); #Eosinphils 0.2 thou/uL (0.0-0.7); #Lymphocytes 1.3 thou/uL (1.20-3.40); #Neutrophils 13.3 thou/uL (1.40-6.50); %Basophils 0.4 % (0.0-1.0); %Lymphocytes 8.1 % (21.0-51.0); %Monocytes 6.1 % (0.0-10.0); %Neutrophils 84.4 % (42.0-75.0); Hemoglobin 13.1 g/dL (14.0-18.0); Mean Corpuscular HGB CONC 34.2 g/dL (32.0-36.0); Mean Corpuscular Hemoglobin 29.7 pg (27.0-31.0); Mean Corpuscular Volume 86.9 fL (78.0-98.0); Mean Platelet Volume 6.8 fL (7.4-10.4); Platelet Count 200 thou/uL (130-400); RBC Distribution Width 11.6 % (11.5-14.5); Red Blood Cell (RBC) Count 4.41 mill/uL (4.70-6.10); White Blood Cell (WBC) Count 15.7 thou/uL (4.8-10.8)
[2018-05-05 18:32] LABS: Lactic Acid 1.2 mmol/L (0.5-2.2)
[2018-05-05 18:36] LABS: Anion Gap 13 mmol/L (10-20); BUN (Urea Nitrogen) 19 mg/dL (8.9-20.6); Calc. Creatinine Clearance 154 mL/min (70-130); Calcium 8.9 mg/dL (7.8-10.44); Carbon Dioxide 27 mmol/L (22-29); Chloride 107 mmol/L (98-107); Estimated GFR-MDRD Greater than 90; Glucose 97 mg/dL (70-105); Potassium 4.4 mmol/L (3.5-5.1); Sodium 143 mmol/L (136-145)
[2018-05-05] MEDS: METHadone HCl 10 MG TAB PO SCH (19:02)
[2018-05-05] MEDS: Ibuprofen 200 MG TAB PO PRN (19:03)
[2018-05-05] MEDS: Gabapentin 300 MG CAP PO PRN (19:04)
[2018-05-05] MEDS: Senokot 8.6 MG TAB PO PRN (19:04)
[2018-05-05] MEDS: Zolpidem Tartrate 5 MG TAB PO PRN (21:08)
[2018-05-05] MEDS: busPIRone HCl 5 MG TAB PO SCH (21:09)
[2018-05-05] MEDS: Mirtazapine 15 MG TAB PO SCH (21:10)
[2018-05-05] MEDS: hydrOXYzine 25 MG TAB PO SCH (21:10)
[2018-05-05] MEDS: clonazePAM 1 MG TAB PO SCH (21:10)
[2018-05-05] MEDS: Famotidine 20 MG TAB PO SCH (21:10)
[2018-05-06] MEDS: METHadone HCl 10 MG TAB PO SCH ×5 (00:20→23:43)
[2018-05-06 06:03] LABS: #Eosinphils 0.3 thou/uL (0.0-0.7); #Lymphocytes 1.4 thou/uL (1.20-3.40); #Monocytes 0.6 thou/uL (0.11-0.59); #Neutrophils 6.7 thou/uL (1.40-6.50); %Basophils 0.4 % (0.0-1.0); %Lymphocytes 15.4 % (21.0-51.0); %Monocytes 6.8 % (0.0-10.0); %Neutrophils 74.5 % (42.0-75.0); Hemoglobin 11.6 g/dL (14.0-18.0); Mean Corpuscular HGB CONC 33.4 g/dL (32.0-36.0); Mean Corpuscular Hemoglobin 28.8 pg (27.0-31.0); Mean Corpuscular Volume 86.2 fL (78.0-98.0); Platelet Count 172 thou/uL (130-400); RBC Distribution Width 12.4 % (11.5-14.5); Red Blood Cell (RBC) Count 4.03 mill/uL (4.70-6.10)
[2018-05-06 06:10] LABS: Anion Gap 11 mmol/L (10-20); BUN (Urea Nitrogen) 17 mg/dL (8.9-20.6); Calc. Creatinine Clearance 166 mL/min (70-130); Calcium 8.9 mg/dL (7.8-10.44); Carbon Dioxide 26 mmol/L (22-29); Chloride 111 mmol/L (98-107); Estimated GFR-MDRD Greater than 90; Glucose 103 mg/dL (70-105); Potassium 4.3 mmol/L (3.5-5.1); Sodium 144 mmol/L (136-145)
[2018-05-06] MEDS: Vancomycin HCl 1 GM in Sodium Chloride 0.9% 250 ML 250 ML IVPB SCH ×3 (06:18→21:21)
[2018-05-06] MEDS ORDERED: Sodium Chloride 0.9% 20 ML ONE ×2 (09:10→14:55)
[2018-05-06] MEDS: Gabapentin 300 MG CAP PO PRN ×2 (09:39→23:50)
[2018-05-06] MEDS: Ibuprofen 200 MG TAB PO PRN (09:39)
[2018-05-06] MEDS: Saccharomyces boulardii 250 MG CAP PO SCH (09:40)
[2018-05-06] MEDS: Famotidine 20 MG TAB PO SCH ×2 (09:40→21:11)
[2018-05-06] MEDS: busPIRone HCl 5 MG TAB PO SCH ×2 (09:40→21:10)
[2018-05-06] MEDS: clonazePAM 1 MG TAB PO SCH ×2 (09:40→21:10)
[2018-05-06] MEDS: Potassium Chloride 20 MEQ TAB PO SCH (09:40)
[2018-05-06] MEDS: Nicotine 14 MG PATCH TOP SCH (09:41)
[2018-05-06] MEDS: hydrOXYzine 25 MG TAB PO SCH ×2 (09:43→21:11)
[2018-05-06] MEDS: Polyethylene Glycol 3350 17 GM Packet PO SCH (09:43)
[2018-05-06] MEDS: Fluticasone Propionate Nasal Spray 16 gm Bottle NASAL SCH (09:43)
[2018-05-06] MEDS ORDERED: clonazePAM 1 MG TAB PO SCH (12:00)
[2018-05-06] MEDS: DULoxetine 30 MG CAP PO SCH (12:09)
[2018-05-06 13:25] LABS: Vancomycin, Trough 19.2 ug/mL
[2018-05-06] MEDS: Senokot 8.6 MG TAB PO PRN (18:41)
[2018-05-06] MEDS: Mirtazapine 15 MG TAB PO SCH (21:11)
[2018-05-06] MEDS: Zolpidem Tartrate 5 MG TAB PO PRN (22:08)
[2018-05-07] MEDS: METHadone HCl 10 MG TAB PO SCH ×3 (05:24→17:24)
[2018-05-07] MEDS: Vancomycin HCl 1 GM in Sodium Chloride 0.9% 250 ML 250 ML IVPB SCH ×3 (05:25→22:20)
[2018-05-07] MEDS ORDERED: Lactulose 10 GM/15 ML Oral Solution PO SCH (09:00)
[2018-05-07] MEDS: DULoxetine 30 MG CAP PO SCH (09:54)
[2018-05-07] MEDS: busPIRone HCl 5 MG TAB PO SCH ×2 (09:55→20:18)
[2018-05-07] MEDS: Potassium Chloride 20 MEQ TAB PO SCH (09:55)
[2018-05-07] MEDS: hydrOXYzine 25 MG TAB PO SCH ×2 (09:55→20:19)
[2018-05-07] MEDS: Saccharomyces boulardii 250 MG CAP PO SCH (09:55)
[2018-05-07] MEDS: clonazePAM 1 MG TAB PO SCH (09:55)
[2018-05-07] MEDS: Famotidine 20 MG TAB PO SCH ×2 (09:55→20:19)
[2018-05-07] MEDS: Nicotine 14 MG PATCH TOP SCH (09:56)
[2018-05-07] MEDS: Polyethylene Glycol 3350 17 GM Packet PO SCH (09:56)
[2018-05-07] MEDS: Docusate Sodium 100 MG/10 ML UDCUP PO SCH (09:56)
[2018-05-07] MEDS: Bisacodyl 10 MG SUPP PR SCH (10:06)
[2018-05-07] MEDS: Fluticasone Propionate Nasal Spray 16 gm Bottle NASAL SCH (10:08)
[2018-05-07 13:25] LABS: Vancomycin, Trough 17.8 ug/mL
[2018-05-07 15:18] VITALS: BMI 26.5
[2018-05-07] MEDS: Ondansetron ODT 4 MG TAB PO PRN (16:17)
[2018-05-07] MEDS: Mirtazapine 15 MG TAB PO SCH (20:19)
[2018-05-07] MEDS: Lorazepam 0.5 MG TAB PO SCH (20:19)
[2018-05-07] MEDS: Senokot 8.6 MG TAB PO SCH (20:20)
[2018-05-08] MEDS: METHadone HCl 10 MG TAB PO SCH ×5 (00:28→23:49)
[2018-05-08 05:22] LABS: #Basophils 0.1 thou/uL (0.0-0.2); #Eosinphils 0.2 thou/uL (0.0-0.7); #Lymphocytes 1.7 thou/uL (1.20-3.40); #Monocytes 0.9 thou/uL (0.11-0.59); #Neutrophils 5.7 thou/uL (1.40-6.50); %Basophils 0.7 % (0.0-1.0); %Eosinophils 2.1 % (0.0-10.0); %Lymphocytes 19.8 % (21.0-51.0); %Monocytes 10.7 % (0.0-10.0); %Neutrophils 66.7 % (42.0-75.0); Hemoglobin 11.9 g/dL (14.0-18.0); Mean Corpuscular HGB CONC 32.8 g/dL (32.0-36.0); Mean Corpuscular Hemoglobin 28.7 pg (27.0-31.0); Mean Corpuscular Volume 87.4 fL (78.0-98.0); Mean Platelet Volume 6.8 fL (7.4-10.4); Platelet Count 199 thou/uL (130-400); RBC Distribution Width 12.2 % (11.5-14.5); Red Blood Cell (RBC) Count 4.16 mill/uL (4.70-6.10); White Blood Cell (WBC) Count 8.6 thou/uL (4.8-10.8)
[2018-05-08 05:35] LABS: Anion Gap 15 mmol/L (10-20); BUN (Urea Nitrogen) 15 mg/dL (8.9-20.6); Calc. Creatinine Clearance 172 mL/min (70-130); Calcium 9.1 mg/dL (7.8-10.44); Carbon Dioxide 24 mmol/L (22-29); Chloride 106 mmol/L (98-107); Estimated GFR-MDRD Greater than 90; Glucose 70 mg/dL (70-105); Potassium 3.9 mmol/L (3.5-5.1); Sodium 141 mmol/L (136-145)
[2018-05-08] MEDS: Vancomycin HCl 1 GM in Sodium Chloride 0.9% 250 ML 250 ML IVPB SCH ×3 (05:38→21:31)
[2018-05-08] MEDS: Lactulose 10 GM/15 ML Oral Solution PO SCH (08:35)
[2018-05-08] MEDS: Polyethylene Glycol 3350 17 GM Packet PO SCH (08:36)
[2018-05-08] MEDS: Saccharomyces boulardii 250 MG CAP PO SCH (08:36)
[2018-05-08] MEDS: busPIRone HCl 5 MG TAB PO SCH ×2 (08:36→21:08)
[2018-05-08] MEDS: Docusate Sodium 100 MG/10 ML UDCUP PO SCH (08:36)
[2018-05-08] MEDS: Potassium Chloride 20 MEQ TAB PO SCH (08:37)
[2018-05-08] MEDS: Nicotine 14 MG PATCH TOP SCH (08:37)
[2018-05-08] MEDS: Lorazepam 0.5 MG TAB PO SCH ×3 (08:37→21:10)
[2018-05-08] MEDS: DULoxetine 30 MG CAP PO SCH (08:37)
[2018-05-08] MEDS: Famotidine 20 MG TAB PO SCH ×2 (08:37→21:11)
[2018-05-08] MEDS: hydrOXYzine 25 MG TAB PO SCH ×2 (08:37→21:11)
[2018-05-08] MEDS: Bisacodyl 10 MG SUPP PR SCH (09:29)
[2018-05-08] MEDS: Fluticasone Propionate Nasal Spray 16 gm Bottle NASAL SCH (09:32)
--- NOTE | 2018-05-08 19:37 | RAD ---
CHEST TWO VIEWS: 05/08/18 Comparison is made with the prior study of 05/05/18. Infiltrate is still present in the right lung. Wi th the aid of the lateral view, it seems that more of it may be in the right upper and middle lobes. The left lung is clear. There are no large effusions. The heart size is normal. IMPRESSION: Right sided pneumonia. Overall, there has not really been much improvement since the prior study. POS: [facility]
[2018-05-08] MEDS: Senokot 8.6 MG TAB PO SCH (21:09)
[2018-05-08] MEDS: Zolpidem Tartrate 5 MG TAB PO PRN (21:10)
[2018-05-08] MEDS: Mirtazapine 15 MG TAB PO SCH (21:10)
[2018-05-09] MEDS: Gabapentin 300 MG CAP PO PRN (02:39)
[2018-05-09] MEDS: METHadone HCl 10 MG TAB PO SCH ×2 (05:35→11:20)
[2018-05-09] MEDS: Vancomycin HCl 1 GM in Sodium Chloride 0.9% 250 ML 250 ML IVPB SCH (05:37)
[2018-05-09 05:43] VITALS: BP 112/72; TEMP 98.7
[2018-05-09] MEDS ORDERED: Magnesium Citrate 300 ML BOT PO SCH (07:15)
[2018-05-09] MEDS: Fluticasone Propionate Nasal Spray 16 gm Bottle NASAL SCH (08:56)
[2018-05-09] MEDS: Nicotine 14 MG PATCH TOP SCH (08:57)
[2018-05-09] MEDS: Potassium Chloride 20 MEQ TAB PO SCH (08:59)
[2018-05-09] MEDS: busPIRone HCl 5 MG TAB PO SCH (08:59)
[2018-05-09] MEDS: Saccharomyces boulardii 250 MG CAP PO SCH (08:59)
[2018-05-09] MEDS: Lorazepam 0.5 MG TAB PO SCH (09:00)
[2018-05-09] MEDS: hydrOXYzine 25 MG TAB PO SCH (09:00)
[2018-05-09] MEDS: DULoxetine 30 MG CAP PO SCH (09:00)
[2018-05-09] MEDS: Famotidine 20 MG TAB PO SCH (09:00)
[2018-05-09] MEDS: Lactulose 10 GM/15 ML Oral Solution PO SCH (11:04)
[2018-05-09] MEDS: Polyethylene Glycol 3350 17 GM Packet PO SCH (11:04)
[2018-05-09] MEDS: Docusate Sodium 100 MG/10 ML UDCUP PO SCH (11:04)
[2018-05-09] MEDS: Bisacodyl 10 MG SUPP PR SCH (11:05)
[2018-05-09] MEDS: Ondansetron ODT 4 MG TAB PO PRN (12:49)
--- NOTE | 2018-05-15 09:20 | HP ---
ADMISSION DIAGNOSIS: sepsis from nosocomial pneumonia; Chronic sacral decubitus ulcer SECONDARY DIAGNOSES: 1. Neurogenic bladder. 2. Anxiety and depression. 3. Constipation PROCEDURES: On 05/05/2018, lumbar x-ray shows stable postop changes of the spine. On 05/05/2018, chest x-ray shows airspace opacity of right lower lobe, may reflect subsegmental atelectasis or pneumonia. HOSPITAL COURSE: A 37-year-old male was admitted initially on 03/27/18 for an infected sacral decubitus ulcer, stage IV. He was initially treated with IV antibiotics and subsequently finished a course of p.o. antibiotics early in his stay. He then transitioned from inpatient status to swing bed status. Since that time, he has been receiving wound care with wound VAC changes on Mondays, Wednesdays, and Fridays. He has been making steady progress with his wound care. Unfortunately, he acutely developed fever, tachycardia, hypotension and tachypnea along with mild hypoxia requiring supplemental oxygen. Secondary to this, the above imaging was obtained along with blood cultures, urine with urine culture and blood work. This did reveal leukocytosis with a left shift along with an elevated lactic acid level. His imaging has revealed pneumonia. Due to these findings, he has been diagnosed with sepsis secondary to nosocomial pneumonia. He has been started on vancomycin and Levaquin IV antibiotics empirically accordingly. At this time due to his acute status change, he will be transitioned from swing bed status back to acute inpatient status for further care. As an aside, it is noted that he has developed constipation; this is likely secondary to his chronic opioid therapy. We will thus pursue treatment with not only his usual bowel regimen, but with an agent specifically for opioid-induced constipation. PAST MEDICAL HISTORY: Paraplegia, anxiety, depression, schizoaffective disorder SURGICAL HISTORY: lumbar surgery SOCIAL HISTORY: smoker, no EtOH or illicit drug use ALLERGIES: Bactrim FAMILY HISTORY: non-contributory CURRENT MEDICATIONS: The patient will resume all his usual medication with the addition of vancomycin to be dosed by the pharmacy along with Levaquin 500 mg IV daily and Movantik 25 mg p.o. daily. REVIEW OF SYSTEMS: general: c/o fever, ENT: denies sore throat, nasal drainage or congestion, CV: no chest pain; Resp: infrequent cough; Gastro: constipation, no N/V/D; Derm: no rash; Neuro - no headache Assessment and Plan: 1. Sepsis from nosocomial pneumonia - continue IV antibiotics Vanc and Levaquin ; will repeat CBC and lactic acid level; f/u cultures 2. Hypoxia - wean supplemental O2 as tolerated 3. Neurogenic bladder - pt self caths 4. Constipation - resume bowel regimen, will add Movantik for opioid induced constipation 5. Chronic sacral decubitus ulcer - continue wound care with wound vac changes M ,W,F 6. Anxiety/depression - continue med regimen and counseling Job ID: [id number] [facility]
== END 2018-05-09 13:01 | disposition swing bed (61) | DRG 871 ==
LOC: BURMED 12:35
PROVIDERS: ADMIT Family Medicine; ATTEND Family Medicine
DX: A41.9 Sepsis, unspecified organism (principal); L89.154 Pressure ulcer of sacral region, stage 4; J18.9 Pneumonia, unspecified organism; G82.20 Paraplegia, unspecified; L03.115 Cellulitis of right lower limb; E87.6 Hypokalemia; F41.8 Other specified anxiety disorders; I10 Essential (primary) hypertension; N31.9 Neuromuscular dysfunction of bladder, unspecified; F41.9 Anxiety disorder, unspecified; F32.9 Major depressive disorder, single episode, unspecified; K59.03 Drug induced constipation; F25.9 Schizoaffective disorder, unspecified; T40.2X5A Adverse effect of other opioids, initial encounter; R09.02 Hypoxemia; Z88.2 Allergy status to sulfonamides; Z98.890 Other specified postprocedural states
CPT/HCPCS: 36415; 71046; 80048; 80202; 83605; 85025; J1956; J3370; J7050; Q0162

== ENCOUNTER 2018-05-09 13:00 | Inpatient (IN) | payer MEDICARE ==
[2018-05-09] MEDS ORDERED: Dicyclomine 20 MG TAB PO PRN (17:00)
[2018-05-09] MEDS ORDERED: Lorazepam 0.5 MG TAB PO PRN (17:16)
[2018-05-09] MEDS: METHadone HCl 10 MG TAB PO SCH ×2 (17:34→23:50)
[2018-05-09] MEDS: Ibuprofen 800 MG TAB PO PRN (17:35)
[2018-05-09] MEDS: Magnesium Citrate 300 ML BOT PO PRN (17:58)
[2018-05-09] MEDS: Famotidine 20 MG TAB PO SCH (21:38)
[2018-05-09] MEDS: Gabapentin 300 MG CAP PO SCH (21:38)
[2018-05-09] MEDS: hydrOXYzine 25 MG TAB PO SCH (21:39)
[2018-05-09] MEDS ORDERED: Ondansetron ODT 4 MG TAB PO PRN (22:58)
[2018-05-09] MEDS ORDERED: Mirtazapine 15 MG TAB PO SCH (23:00)
[2018-05-09] MEDS ORDERED: Senokot 8.6 MG TAB PO SCH (23:00)
[2018-05-09] MEDS: Zolpidem Tartrate 5 MG TAB PO PRN (23:50)
[2018-05-10] MEDS: METHadone HCl 10 MG TAB PO SCH ×4 (05:39→23:51)
[2018-05-10] MEDS: Polyethylene Glycol 3350 17 GM Packet PO SCH (08:54)
[2018-05-10] MEDS: Docusate Sodium 100 MG/10 ML UDCUP PO SCH (08:54)
[2018-05-10] MEDS: hydrOXYzine 25 MG TAB PO SCH ×2 (08:55→21:53)
[2018-05-10] MEDS: DULoxetine 30 MG CAP PO SCH (08:56)
[2018-05-10] MEDS: Potassium Chloride 20 MEQ TAB PO SCH (08:56)
[2018-05-10] MEDS: Famotidine 20 MG TAB PO SCH ×2 (08:56→21:53)
[2018-05-10] MEDS: Saccharomyces boulardii 250 MG CAP PO SCH (08:56)
[2018-05-10] MEDS: Gabapentin 300 MG CAP PO SCH ×3 (08:57→21:53)
[2018-05-10] MEDS: Fluticasone Propionate Nasal Spray 16 gm Bottle NASAL SCH (08:57)
[2018-05-10] MEDS: Bisacodyl 10 MG SUPP PR SCH (08:58)
[2018-05-10] MEDS ORDERED: Lactulose 10 GM/15 ML Oral Solution PO SCH (09:00)
[2018-05-10] MEDS: Nicotine 14 MG PATCH TOP SCH (09:07)
[2018-05-10] MEDS ORDERED: Lactulose 10 GM/15 ML Oral Solution ONE (09:19)
[2018-05-10] MEDS: Lactulose 10 GM/15 ML Oral Solution PO SCH (11:35)
[2018-05-10] MEDS: Lorazepam 0.5 MG TAB PO SCH ×2 (14:51→21:53)
[2018-05-10] MEDS: Magnesium Citrate 300 ML BOT PO PRN (18:21)
[2018-05-10] MEDS: Senokot 8.6 MG TAB PO SCH (21:52)
[2018-05-10] MEDS: Mirtazapine 15 MG TAB PO SCH (21:53)
[2018-05-10] MEDS: Zolpidem Tartrate 5 MG TAB PO PRN (22:00)
[2018-05-11] MEDS: METHadone HCl 10 MG TAB PO SCH ×4 (05:40→23:38)
[2018-05-11] MEDS: Docusate Sodium 100 MG/10 ML UDCUP PO SCH (10:12)
[2018-05-11] MEDS: DULoxetine 30 MG CAP PO SCH (10:13)
[2018-05-11] MEDS: Famotidine 20 MG TAB PO SCH ×2 (10:14→21:21)
[2018-05-11] MEDS: Saccharomyces boulardii 250 MG CAP PO SCH (10:14)
[2018-05-11] MEDS: Potassium Chloride 20 MEQ TAB PO SCH (10:14)
[2018-05-11] MEDS: Gabapentin 300 MG CAP PO SCH ×3 (10:14→21:21)
[2018-05-11] MEDS: hydrOXYzine 25 MG TAB PO SCH ×2 (10:14→21:21)
[2018-05-11] MEDS: Bisacodyl 10 MG SUPP PR SCH (10:15)
[2018-05-11] MEDS: Polyethylene Glycol 3350 17 GM Packet PO SCH (10:16)
[2018-05-11] MEDS: Lorazepam 0.5 MG TAB PO SCH ×3 (10:16→21:21)
[2018-05-11] MEDS: Fluticasone Propionate Nasal Spray 16 gm Bottle NASAL SCH (10:20)
[2018-05-11] MEDS: Nicotine 14 MG PATCH TOP SCH (10:31)
[2018-05-11] MEDS: Lactulose 10 GM/15 ML Oral Solution PO SCH (10:44)
[2018-05-11] MEDS: Acetaminophen 325 MG TAB PO PRN (14:59)
[2018-05-11] MEDS: Magnesium Citrate 300 ML BOT PO PRN (20:00)
[2018-05-11] MEDS: Mirtazapine 15 MG TAB PO SCH (21:21)
[2018-05-11] MEDS: Senokot 8.6 MG TAB PO SCH (21:22)
[2018-05-11] MEDS: Zolpidem Tartrate 5 MG TAB PO PRN (21:22)
[2018-05-12] MEDS: METHadone HCl 10 MG TAB PO SCH ×4 (05:38→23:34)
[2018-05-12] MEDS: Nicotine 14 MG PATCH TOP SCH (08:13)
[2018-05-12] MEDS: Famotidine 20 MG TAB PO SCH ×2 (08:14→20:46)
[2018-05-12] MEDS: Potassium Chloride 20 MEQ TAB PO SCH (08:14)
[2018-05-12] MEDS: Lorazepam 0.5 MG TAB PO SCH ×3 (08:14→20:47)
[2018-05-12] MEDS: Polyethylene Glycol 3350 17 GM Packet PO SCH (08:14)
[2018-05-12] MEDS: DULoxetine 30 MG CAP PO SCH (08:14)
[2018-05-12] MEDS: Saccharomyces boulardii 250 MG CAP PO SCH (08:14)
[2018-05-12] MEDS: Bisacodyl 10 MG SUPP PR SCH (08:15)
[2018-05-12] MEDS: Gabapentin 300 MG CAP PO SCH ×3 (08:15→20:45)
[2018-05-12] MEDS: Fluticasone Propionate Nasal Spray 16 gm Bottle NASAL SCH (08:15)
[2018-05-12] MEDS: hydrOXYzine 25 MG TAB PO SCH ×2 (08:15→20:45)
[2018-05-12] MEDS: Lactulose 10 GM/15 ML Oral Solution PO SCH (08:15)
[2018-05-12] MEDS: Docusate Sodium 100 MG/10 ML UDCUP PO SCH (08:17)
[2018-05-12] MEDS: Ibuprofen 800 MG TAB PO PRN (11:45)
[2018-05-12] MEDS: Magnesium Citrate 300 ML BOT PO PRN (20:45)
[2018-05-12] MEDS: Senokot 8.6 MG TAB PO SCH (20:46)
[2018-05-12] MEDS: Mirtazapine 15 MG TAB PO SCH (20:47)
[2018-05-13] MEDS: METHadone HCl 10 MG TAB PO SCH ×4 (05:33→23:41)
[2018-05-13] MEDS: Lactulose 10 GM/15 ML Oral Solution PO SCH (08:19)
[2018-05-13] MEDS: DULoxetine 30 MG CAP PO SCH (08:20)
[2018-05-13] MEDS: Docusate Sodium 100 MG/10 ML UDCUP PO SCH (08:20)
[2018-05-13] MEDS: Lorazepam 0.5 MG TAB PO SCH ×3 (08:21→20:55)
[2018-05-13] MEDS: hydrOXYzine 25 MG TAB PO SCH ×2 (08:21→20:55)
[2018-05-13] MEDS: Saccharomyces boulardii 250 MG CAP PO SCH (08:21)
[2018-05-13] MEDS: Fluticasone Propionate Nasal Spray 16 gm Bottle NASAL SCH (08:21)
[2018-05-13] MEDS: Gabapentin 300 MG CAP PO SCH ×3 (08:21→20:55)
[2018-05-13] MEDS: Potassium Chloride 20 MEQ TAB PO SCH (08:21)
[2018-05-13] MEDS: Famotidine 20 MG TAB PO SCH ×2 (08:21→20:55)
[2018-05-13] MEDS: Polyethylene Glycol 3350 17 GM Packet PO SCH (08:22)
[2018-05-13] MEDS: Nicotine 14 MG PATCH TOP SCH (08:23)
[2018-05-13] MEDS: Bisacodyl 10 MG SUPP PR SCH (08:24)
[2018-05-13] MEDS: Senokot 8.6 MG TAB PO SCH (20:55)
[2018-05-13] MEDS: Mirtazapine 15 MG TAB PO SCH (20:55)
[2018-05-13] MEDS: Zolpidem Tartrate 5 MG TAB PO PRN (20:56)
[2018-05-13] MEDS: Magnesium Citrate 300 ML BOT PO PRN (21:05)
[2018-05-14 04:45] LABS: #Basophils 0.1 thou/uL (0.0-0.2); #Eosinphils 0.3 thou/uL (0.0-0.7); #Lymphocytes 2.5 thou/uL (1.20-3.40); #Monocytes 0.5 thou/uL (0.11-0.59); #Neutrophils 3.3 thou/uL (1.40-6.50); %Basophils 1.3 % (0.0-1.0); %Eosinophils 4.7 % (0.0-10.0); %Lymphocytes 37.4 % (21.0-51.0); %Neutrophils 48.7 % (42.0-75.0); Hemoglobin 11.8 g/dL (14.0-18.0); Mean Corpuscular HGB CONC 30.8 g/dL (32.0-36.0); Mean Corpuscular Hemoglobin 27.1 pg (27.0-31.0); Mean Corpuscular Volume 87.9 fL (78.0-98.0); Mean Platelet Volume 6.6 fL (7.4-10.4); Platelet Count 309 thou/uL (130-400); RBC Distribution Width 12.2 % (11.5-14.5); Red Blood Cell (RBC) Count 4.37 mill/uL (4.70-6.10); White Blood Cell (WBC) Count 6.7 thou/uL (4.8-10.8)
[2018-05-14 04:54] LABS: Anion Gap 11 mmol/L (10-20); BUN (Urea Nitrogen) 17 mg/dL (8.9-20.6); Calc. Creatinine Clearance 152 mL/min (70-130); Calcium 8.9 mg/dL (7.8-10.44); Carbon Dioxide 30 mmol/L (22-29); Chloride 102 mmol/L (98-107); Estimated GFR-MDRD Greater than 90; Glucose 90 mg/dL (70-105); Potassium 4.1 mmol/L (3.5-5.1); Sodium 139 mmol/L (136-145)
[2018-05-14] MEDS: METHadone HCl 10 MG TAB PO SCH ×4 (05:15→23:50)
--- NOTE | 2018-05-14 08:03 | RAD ---
CHEST 2 VIEWS: Date: 05/14/18 Comparison made with the 05/08/18 study. There has been definite improvement in the right lung infilt rate. There is still a little residual remaining in a portion of the right upper lobe, but the overal l improvement is substantial. The left lung remains clear. There are no effusions. The heart size is normal. IMPRESSION: Substantial improvement in right lung infiltrate since 05/08/18. I suspect one final x-ray in 2 weeks or so should be sufficient to show complete clearing. POS: HOME
[2018-05-14] MEDS: Promethazine 25 MG TAB PO PRN (09:05)
[2018-05-14] MEDS: Fluticasone Propionate Nasal Spray 16 gm Bottle NASAL SCH (10:08)
[2018-05-14] MEDS: Docusate Sodium 100 MG/10 ML UDCUP PO SCH (10:08)
[2018-05-14] MEDS: Lactulose 10 GM/15 ML Oral Solution PO SCH (10:08)
[2018-05-14] MEDS: Nicotine 14 MG PATCH TOP SCH (10:08)
[2018-05-14] MEDS: Famotidine 20 MG TAB PO SCH ×2 (10:09→20:47)
[2018-05-14] MEDS: DULoxetine 30 MG CAP PO SCH (10:09)
[2018-05-14] MEDS: Saccharomyces boulardii 250 MG CAP PO SCH (10:09)
[2018-05-14] MEDS: Polyethylene Glycol 3350 17 GM Packet PO SCH (10:10)
[2018-05-14] MEDS: Potassium Chloride 20 MEQ TAB PO SCH (10:10)
[2018-05-14] MEDS: Gabapentin 300 MG CAP PO SCH ×3 (10:10→20:46)
[2018-05-14] MEDS: Lorazepam 0.5 MG TAB PO SCH ×3 (10:10→20:46)
[2018-05-14] MEDS: hydrOXYzine 25 MG TAB PO SCH ×2 (10:10→20:47)
[2018-05-14] MEDS: Bisacodyl 10 MG SUPP PR SCH (10:10)
[2018-05-14] MEDS: Magnesium Citrate 300 ML BOT PO PRN (20:44)
[2018-05-14] MEDS: Zolpidem Tartrate 5 MG TAB PO PRN (20:47)
[2018-05-14] MEDS: Senokot 8.6 MG TAB PO SCH (20:47)
[2018-05-14] MEDS: Mirtazapine 15 MG TAB PO SCH (20:47)
[2018-05-15] MEDS: METHadone HCl 10 MG TAB PO SCH ×4 (05:21→23:53)
[2018-05-15] MEDS: Potassium Chloride 20 MEQ TAB PO SCH (08:44)
[2018-05-15] MEDS: Lorazepam 0.5 MG TAB PO SCH ×3 (08:45→21:26)
[2018-05-15] MEDS: hydrOXYzine 25 MG TAB PO SCH ×2 (08:45→21:26)
[2018-05-15] MEDS: Saccharomyces boulardii 250 MG CAP PO SCH (08:45)
[2018-05-15] MEDS: Famotidine 20 MG TAB PO SCH ×2 (08:45→21:26)
[2018-05-15] MEDS: Gabapentin 300 MG CAP PO SCH ×3 (08:45→21:26)
[2018-05-15] MEDS: DULoxetine 30 MG CAP PO SCH (08:45)
[2018-05-15] MEDS: Lactulose 10 GM/15 ML Oral Solution PO SCH (08:46)
[2018-05-15] MEDS: Docusate Sodium 100 MG/10 ML UDCUP PO SCH (08:46)
[2018-05-15] MEDS: Nicotine 14 MG PATCH TOP SCH (08:47)
[2018-05-15] MEDS: Fluticasone Propionate Nasal Spray 16 gm Bottle NASAL SCH (08:47)
[2018-05-15] MEDS: Bisacodyl 10 MG SUPP PR SCH (08:47)
[2018-05-15] MEDS: Polyethylene Glycol 3350 17 GM Packet PO SCH (08:51)
[2018-05-15] MEDS: Ibuprofen 800 MG TAB PO PRN (12:47)
[2018-05-15] MEDS: Promethazine 25 MG TAB PO PRN (12:47)
[2018-05-15] MEDS: Acetaminophen 325 MG TAB PO PRN (16:22)
[2018-05-15] MEDS: Zolpidem Tartrate 5 MG TAB PO PRN (21:26)
[2018-05-15] MEDS: Mirtazapine 15 MG TAB PO SCH (21:26)
[2018-05-15] MEDS: Senokot 8.6 MG TAB PO SCH (21:27)
--- NOTE | 2018-05-15 21:27 | RAD ---
ACUTE ABDOMEN SERIES 05/15/18 Comparison is made with the 05/05 film. There is still a very large amount of fecal material in the co anabelle, but less so than before. there is a little more gaseous distention of the distal colon, includin g the sigmoid colon. Nevertheless, there is no sign of yazan obstruction. No calcifications of great concern were seen. The patient has rods in place in the back and there appear to be breaks in the ea ch shayne at about the L3 level. A vena cava filter is noted in place. A chest film in the series shows a normal sized heart and clear lungs. IMPRESSION: Mild constipation, but improved since 05/05. POS: HOME
[2018-05-16] MEDS: METHadone HCl 10 MG TAB PO SCH ×3 (05:01→18:04)
[2018-05-16] MEDS: Docusate Sodium 100 MG/10 ML UDCUP PO SCH (09:09)
[2018-05-16] MEDS: Lactulose 10 GM/15 ML Oral Solution PO SCH (09:10)
[2018-05-16] MEDS: Gabapentin 300 MG CAP PO SCH ×3 (09:11→20:53)
[2018-05-16] MEDS: DULoxetine 30 MG CAP PO SCH (09:11)
[2018-05-16] MEDS: Fluticasone Propionate Nasal Spray 16 gm Bottle NASAL SCH (09:12)
[2018-05-16] MEDS: Potassium Chloride 20 MEQ TAB PO SCH (09:12)
[2018-05-16] MEDS: Saccharomyces boulardii 250 MG CAP PO SCH (09:12)
[2018-05-16] MEDS: Lorazepam 0.5 MG TAB PO SCH ×3 (09:12→20:53)
[2018-05-16] MEDS: hydrOXYzine 25 MG TAB PO SCH ×2 (09:12→20:53)
[2018-05-16] MEDS: Famotidine 20 MG TAB PO SCH ×2 (09:12→20:53)
[2018-05-16] MEDS: Polyethylene Glycol 3350 17 GM Packet PO SCH (09:13)
[2018-05-16] MEDS: Bisacodyl 10 MG SUPP PR SCH (09:13)
[2018-05-16] MEDS: Nicotine 14 MG PATCH TOP SCH (09:20)
[2018-05-16] MEDS: Mirtazapine 15 MG TAB PO SCH (20:53)
[2018-05-16] MEDS: Senokot 8.6 MG TAB PO SCH (20:54)
[2018-05-17] MEDS: METHadone HCl 10 MG TAB PO SCH ×5 (00:41→23:50)
[2018-05-17] MEDS: hydrOXYzine 25 MG TAB PO SCH ×2 (09:04→20:59)
[2018-05-17] MEDS: Potassium Chloride 20 MEQ TAB PO SCH (09:04)
[2018-05-17] MEDS: Lorazepam 0.5 MG TAB PO SCH ×3 (09:04→21:00)
[2018-05-17] MEDS: Saccharomyces boulardii 250 MG CAP PO SCH (09:04)
[2018-05-17] MEDS: DULoxetine 30 MG CAP PO SCH (09:05)
[2018-05-17] MEDS: Famotidine 20 MG TAB PO SCH ×2 (09:05→20:59)
[2018-05-17] MEDS: Gabapentin 300 MG CAP PO SCH ×3 (09:05→20:59)
[2018-05-17] MEDS: Bisacodyl 10 MG SUPP PR SCH (09:05)
[2018-05-17] MEDS: Polyethylene Glycol 3350 17 GM Packet PO SCH (09:06)
[2018-05-17] MEDS: Nicotine 14 MG PATCH TOP SCH (09:06)
[2018-05-17] MEDS: Docusate Sodium 100 MG/10 ML UDCUP PO SCH (09:06)
[2018-05-17] MEDS: Lactulose 10 GM/15 ML Oral Solution PO SCH (09:16)
[2018-05-17] MEDS: Fluticasone Propionate Nasal Spray 16 gm Bottle NASAL SCH (09:21)
[2018-05-17] MEDS: Ibuprofen 800 MG TAB PO PRN (12:33)
[2018-05-17] MEDS: Mirtazapine 15 MG TAB PO SCH (20:59)
[2018-05-17] MEDS: Senokot 8.6 MG TAB PO SCH (21:00)
[2018-05-17] MEDS: Zolpidem Tartrate 5 MG TAB PO PRN (21:04)
[2018-05-18] MEDS: METHadone HCl 10 MG TAB PO SCH ×3 (06:04→18:15)
[2018-05-18] MEDS ORDERED: Polyethylene Glycol 3350 17 GM Packet PO PRN (07:58)
[2018-05-18] MEDS: Docusate Sodium 100 MG/10 ML UDCUP PO SCH (08:23)
[2018-05-18] MEDS: Nicotine 14 MG PATCH TOP SCH (08:24)
[2018-05-18] MEDS: Lorazepam 0.5 MG TAB PO SCH ×3 (08:27→20:49)
[2018-05-18] MEDS: Famotidine 20 MG TAB PO SCH ×2 (08:28→20:50)
[2018-05-18] MEDS: DULoxetine 30 MG CAP PO SCH (08:28)
[2018-05-18] MEDS: Potassium Chloride 20 MEQ TAB PO SCH (08:29)
[2018-05-18] MEDS: hydrOXYzine 25 MG TAB PO SCH ×2 (08:29→20:50)
[2018-05-18] MEDS: Saccharomyces boulardii 250 MG CAP PO SCH (08:30)
[2018-05-18] MEDS: Gabapentin 300 MG CAP PO SCH ×3 (08:30→20:50)
[2018-05-18] MEDS: Fluticasone Propionate Nasal Spray 16 gm Bottle NASAL SCH (08:30)
[2018-05-18] MEDS: Zolpidem Tartrate 5 MG TAB PO PRN (20:50)
[2018-05-18] MEDS: Mirtazapine 15 MG TAB PO SCH (20:50)
[2018-05-18] MEDS: Senokot 8.6 MG TAB PO SCH (20:50)
[2018-05-19] MEDS: METHadone HCl 10 MG TAB PO SCH ×4 (00:14→18:01)
[2018-05-19] MEDS: Nicotine 14 MG PATCH TOP SCH (08:41)
[2018-05-19] MEDS: Fluticasone Propionate Nasal Spray 16 gm Bottle NASAL SCH (08:41)
[2018-05-19] MEDS: Gabapentin 300 MG CAP PO SCH ×3 (08:43→20:39)
[2018-05-19] MEDS: Lorazepam 0.5 MG TAB PO SCH ×3 (08:43→20:38)
[2018-05-19] MEDS: Docusate Sodium 100 MG/10 ML UDCUP PO SCH (08:43)
[2018-05-19] MEDS: DULoxetine 30 MG CAP PO SCH (08:43)
[2018-05-19] MEDS: Famotidine 20 MG TAB PO SCH ×2 (08:44→20:39)
[2018-05-19] MEDS: Potassium Chloride 20 MEQ TAB PO SCH (08:44)
[2018-05-19] MEDS: Saccharomyces boulardii 250 MG CAP PO SCH (08:44)
[2018-05-19] MEDS: hydrOXYzine 25 MG TAB PO SCH ×2 (08:44→20:39)
[2018-05-19] MEDS: Ibuprofen 800 MG TAB PO PRN (15:59)
[2018-05-19] MEDS: Mirtazapine 15 MG TAB PO SCH (20:35)
[2018-05-19] MEDS: Zolpidem Tartrate 5 MG TAB PO PRN (20:39)
[2018-05-19] MEDS: Senokot 8.6 MG TAB PO SCH (20:39)
[2018-05-20] MEDS: METHadone HCl 10 MG TAB PO SCH ×4 (00:16→17:32)
[2018-05-20] MEDS: Potassium Chloride 20 MEQ TAB PO SCH (08:01)
[2018-05-20] MEDS: Gabapentin 300 MG CAP PO SCH ×3 (08:03→21:38)
[2018-05-20] MEDS: DULoxetine 30 MG CAP PO SCH (08:03)
[2018-05-20] MEDS: Saccharomyces boulardii 250 MG CAP PO SCH (08:03)
[2018-05-20] MEDS: Famotidine 20 MG TAB PO SCH ×2 (08:03→21:38)
[2018-05-20] MEDS: hydrOXYzine 25 MG TAB PO SCH ×2 (08:03→21:38)
[2018-05-20] MEDS: Lorazepam 0.5 MG TAB PO SCH ×3 (08:04→21:38)
[2018-05-20] MEDS: Docusate Sodium 100 MG/10 ML UDCUP PO SCH (08:04)
[2018-05-20] MEDS: Ibuprofen 800 MG TAB PO PRN ×2 (09:28→21:42)
[2018-05-20] MEDS: Nicotine 14 MG PATCH TOP SCH (09:30)
[2018-05-20] MEDS: Fluticasone Propionate Nasal Spray 16 gm Bottle NASAL SCH (09:33)
[2018-05-20] MEDS: Mirtazapine 15 MG TAB PO SCH (21:38)
[2018-05-20] MEDS: Senokot 8.6 MG TAB PO SCH (21:38)
[2018-05-20] MEDS: Zolpidem Tartrate 5 MG TAB PO PRN (21:42)
[2018-05-20] MEDS: Loratadine 10 MG TAB PO PRN (22:53)
[2018-05-21] MEDS: METHadone HCl 10 MG TAB PO SCH ×5 (05:38→23:48)
[2018-05-21] MEDS: Ibuprofen 800 MG TAB PO PRN ×2 (05:39→18:00)
[2018-05-21] MEDS: Nicotine 14 MG PATCH TOP SCH (08:43)
[2018-05-21] MEDS: Docusate Sodium 100 MG/10 ML UDCUP PO SCH (08:44)
[2018-05-21] MEDS: hydrOXYzine 25 MG TAB PO SCH ×2 (08:44→21:04)
[2018-05-21] MEDS: Potassium Chloride 20 MEQ TAB PO SCH (08:44)
[2018-05-21] MEDS: Gabapentin 300 MG CAP PO SCH ×3 (08:44→21:03)
[2018-05-21] MEDS: Famotidine 20 MG TAB PO SCH ×2 (08:44→21:03)
[2018-05-21] MEDS: Fluticasone Propionate Nasal Spray 16 gm Bottle NASAL SCH (08:45)
[2018-05-21] MEDS: DULoxetine 30 MG CAP PO SCH (08:45)
[2018-05-21] MEDS: Saccharomyces boulardii 250 MG CAP PO SCH (08:45)
[2018-05-21] MEDS: Lorazepam 0.5 MG TAB PO SCH ×3 (08:45→21:02)
[2018-05-21] MEDS: Senokot 8.6 MG TAB PO SCH (21:02)
[2018-05-21] MEDS: Mirtazapine 15 MG TAB PO SCH (21:04)
[2018-05-21] MEDS: Zolpidem Tartrate 5 MG TAB PO PRN (21:04)
[2018-05-22] MEDS: METHadone HCl 10 MG TAB PO SCH ×4 (05:57→23:19)
[2018-05-22] MEDS: Docusate Sodium 100 MG/10 ML UDCUP PO SCH (09:13)
[2018-05-22] MEDS: hydrOXYzine 25 MG TAB PO SCH ×2 (09:14→20:41)
[2018-05-22] MEDS: Saccharomyces boulardii 250 MG CAP PO SCH (09:14)
[2018-05-22] MEDS: Nicotine 14 MG PATCH TOP SCH (09:14)
[2018-05-22] MEDS: DULoxetine 30 MG CAP PO SCH (09:15)
[2018-05-22] MEDS: Gabapentin 300 MG CAP PO SCH ×3 (09:16→20:41)
[2018-05-22] MEDS: Potassium Chloride 20 MEQ TAB PO SCH (09:16)
[2018-05-22] MEDS: Famotidine 20 MG TAB PO SCH ×2 (09:16→20:41)
[2018-05-22] MEDS: Fluticasone Propionate Nasal Spray 16 gm Bottle NASAL SCH (09:18)
[2018-05-22] MEDS ORDERED: Lorazepam 0.5 MG TAB PO SCH (09:30)
[2018-05-22] MEDS: Lorazepam 0.5 MG TAB PO SCH ×3 (10:42→20:40)
[2018-05-22] MEDS: Zolpidem Tartrate 5 MG TAB PO PRN (20:39)
[2018-05-22] MEDS: Senokot 8.6 MG TAB PO SCH (20:41)
[2018-05-22] MEDS: Mirtazapine 15 MG TAB PO SCH (20:42)
[2018-05-22] MEDS: Ibuprofen 800 MG TAB PO PRN (21:11)
[2018-05-23] MEDS: METHadone HCl 10 MG TAB PO SCH ×4 (05:35→23:59)
[2018-05-23] MEDS: Lorazepam 0.5 MG TAB PO SCH ×3 (08:18→21:05)
[2018-05-23] MEDS: Gabapentin 300 MG CAP PO SCH ×3 (08:19→21:05)
[2018-05-23] MEDS: Famotidine 20 MG TAB PO SCH ×2 (08:19→21:05)
[2018-05-23] MEDS: DULoxetine 30 MG CAP PO SCH (08:19)
[2018-05-23] MEDS: hydrOXYzine 25 MG TAB PO SCH ×2 (08:19→21:05)
[2018-05-23] MEDS: Potassium Chloride 20 MEQ TAB PO SCH (08:20)
[2018-05-23] MEDS: Saccharomyces boulardii 250 MG CAP PO SCH (08:20)
[2018-05-23] MEDS: Ibuprofen 800 MG TAB PO PRN ×2 (08:20→22:12)
[2018-05-23] MEDS: Nicotine 14 MG PATCH TOP SCH (08:21)
[2018-05-23] MEDS: Docusate Sodium 100 MG/10 ML UDCUP PO SCH (08:21)
[2018-05-23] MEDS: Fluticasone Propionate Nasal Spray 16 gm Bottle NASAL SCH (11:50)
[2018-05-23] MEDS: Zolpidem Tartrate 5 MG TAB PO PRN (21:05)
[2018-05-23] MEDS: Senokot 8.6 MG TAB PO SCH (21:05)
[2018-05-23] MEDS: Mirtazapine 15 MG TAB PO SCH (21:05)
[2018-05-24] MEDS: METHadone HCl 10 MG TAB PO SCH ×4 (05:37→23:36)
[2018-05-24] MEDS: Docusate Sodium 100 MG/10 ML UDCUP PO SCH (08:29)
[2018-05-24] MEDS: Nicotine 14 MG PATCH TOP SCH (08:29)
[2018-05-24] MEDS: DULoxetine 30 MG CAP PO SCH (08:30)
[2018-05-24] MEDS: hydrOXYzine 25 MG TAB PO SCH ×2 (08:30→21:45)
[2018-05-24] MEDS: Lorazepam 0.5 MG TAB PO SCH ×3 (08:30→21:43)
[2018-05-24] MEDS: Famotidine 20 MG TAB PO SCH ×2 (08:31→21:44)
[2018-05-24] MEDS: Potassium Chloride 20 MEQ TAB PO SCH (08:31)
[2018-05-24] MEDS: Gabapentin 300 MG CAP PO SCH ×3 (08:32→21:44)
[2018-05-24] MEDS: Saccharomyces boulardii 250 MG CAP PO SCH (08:32)
[2018-05-24] MEDS: Fluticasone Propionate Nasal Spray 16 gm Bottle NASAL SCH (10:01)
[2018-05-24] MEDS: Senokot 8.6 MG TAB PO SCH (21:42)
[2018-05-24] MEDS: Zolpidem Tartrate 5 MG TAB PO PRN (21:45)
[2018-05-24] MEDS: Mirtazapine 15 MG TAB PO SCH (21:45)
[2018-05-25] MEDS: METHadone HCl 10 MG TAB PO SCH ×3 (05:56→18:23)
[2018-05-25] MEDS: Docusate Sodium 100 MG/10 ML UDCUP PO SCH (08:29)
[2018-05-25] MEDS: Nicotine 14 MG PATCH TOP SCH (08:29)
[2018-05-25] MEDS: DULoxetine 30 MG CAP PO SCH (08:30)
[2018-05-25] MEDS: Lorazepam 0.5 MG TAB PO SCH ×3 (08:30→20:44)
[2018-05-25] MEDS: Gabapentin 300 MG CAP PO SCH ×3 (08:30→20:46)
[2018-05-25] MEDS: Potassium Chloride 20 MEQ TAB PO SCH (08:30)
[2018-05-25] MEDS: Famotidine 20 MG TAB PO SCH ×2 (08:31→20:45)
[2018-05-25] MEDS: Saccharomyces boulardii 250 MG CAP PO SCH (08:31)
[2018-05-25] MEDS: Fluticasone Propionate Nasal Spray 16 gm Bottle NASAL SCH (08:31)
[2018-05-25] MEDS: hydrOXYzine 25 MG TAB PO SCH ×2 (08:31→20:46)
[2018-05-25] MEDS: Ibuprofen 800 MG TAB PO PRN (09:23)
[2018-05-25] MEDS: Senokot 8.6 MG TAB PO SCH (20:45)
[2018-05-25] MEDS: Mirtazapine 15 MG TAB PO SCH (20:46)
[2018-05-25] MEDS: Zolpidem Tartrate 5 MG TAB PO PRN (20:46)
[2018-05-26] MEDS: METHadone HCl 10 MG TAB PO SCH ×4 (00:45→17:10)
[2018-05-26] MEDS: Docusate Sodium 100 MG/10 ML UDCUP PO SCH (09:34)
[2018-05-26] MEDS: Lorazepam 0.5 MG TAB PO SCH ×3 (09:35→21:37)
[2018-05-26] MEDS: Saccharomyces boulardii 250 MG CAP PO SCH (09:35)
[2018-05-26] MEDS: DULoxetine 30 MG CAP PO SCH (09:37)
[2018-05-26] MEDS: Potassium Chloride 20 MEQ TAB PO SCH (09:37)
[2018-05-26] MEDS: Famotidine 20 MG TAB PO SCH ×2 (09:38→21:37)
[2018-05-26] MEDS: Gabapentin 300 MG CAP PO SCH ×3 (09:38→21:37)
[2018-05-26] MEDS: hydrOXYzine 25 MG TAB PO SCH ×2 (09:38→21:37)
[2018-05-26] MEDS: Fluticasone Propionate Nasal Spray 16 gm Bottle NASAL SCH (09:39)
[2018-05-26] MEDS: Nicotine 14 MG PATCH TOP SCH (09:39)
[2018-05-26] MEDS: Mirtazapine 15 MG TAB PO SCH (21:37)
[2018-05-26] MEDS: Senokot 8.6 MG TAB PO SCH (21:37)
[2018-05-26] MEDS: Zolpidem Tartrate 5 MG TAB PO PRN (21:38)
[2018-05-27] MEDS: METHadone HCl 10 MG TAB PO SCH ×4 (00:09→17:11)
[2018-05-27] MEDS: DULoxetine 30 MG CAP PO SCH (09:17)
[2018-05-27] MEDS: Lorazepam 0.5 MG TAB PO SCH ×3 (09:17→21:21)
[2018-05-27] MEDS: Saccharomyces boulardii 250 MG CAP PO SCH (09:18)
[2018-05-27] MEDS: Gabapentin 300 MG CAP PO SCH ×3 (09:18→21:21)
[2018-05-27] MEDS: hydrOXYzine 25 MG TAB PO SCH ×2 (09:18→21:21)
[2018-05-27] MEDS: Famotidine 20 MG TAB PO SCH ×2 (09:18→21:21)
[2018-05-27] MEDS: Potassium Chloride 20 MEQ TAB PO SCH (09:18)
[2018-05-27] MEDS: Docusate Sodium 100 MG/10 ML UDCUP PO SCH (09:19)
[2018-05-27] MEDS: Nicotine 14 MG PATCH TOP SCH (09:19)
[2018-05-27] MEDS: Fluticasone Propionate Nasal Spray 16 gm Bottle NASAL SCH (09:22)
[2018-05-27] MEDS: Mirtazapine 15 MG TAB PO SCH (21:21)
[2018-05-27] MEDS: Senokot 8.6 MG TAB PO SCH (21:21)
[2018-05-27] MEDS: Zolpidem Tartrate 5 MG TAB PO PRN (21:21)
[2018-05-27] MEDS: Loratadine 10 MG TAB PO PRN (22:57)
[2018-05-28] MEDS: METHadone HCl 10 MG TAB PO SCH ×5 (00:11→23:57)
[2018-05-28] MEDS: Nicotine 14 MG PATCH TOP SCH (08:53)
[2018-05-28] MEDS: Docusate Sodium 100 MG/10 ML UDCUP PO SCH (08:54)
[2018-05-28] MEDS: Famotidine 20 MG TAB PO SCH ×2 (08:55→20:44)
[2018-05-28] MEDS: Lorazepam 0.5 MG TAB PO SCH ×3 (08:56→20:43)
[2018-05-28] MEDS: DULoxetine 30 MG CAP PO SCH ×2 (08:57→20:44)
[2018-05-28] MEDS: Saccharomyces boulardii 250 MG CAP PO SCH (08:57)
[2018-05-28] MEDS: Gabapentin 300 MG CAP PO SCH ×3 (08:57→20:43)
[2018-05-28] MEDS: Fluticasone Propionate Nasal Spray 16 gm Bottle NASAL SCH (08:58)
[2018-05-28] MEDS: Potassium Chloride 20 MEQ TAB PO SCH (08:58)
[2018-05-28] MEDS: hydrOXYzine 25 MG TAB PO SCH ×2 (08:58→20:44)
[2018-05-28] MEDS: Senokot 8.6 MG TAB PO SCH (20:43)
[2018-05-28] MEDS: Mirtazapine 15 MG TAB PO SCH (20:44)
[2018-05-28] MEDS: Zolpidem Tartrate 5 MG TAB PO PRN (20:45)
[2018-05-29] MEDS: METHadone HCl 10 MG TAB PO SCH ×4 (05:43→23:54)
[2018-05-29] MEDS: Potassium Chloride 20 MEQ TAB PO SCH (08:30)
[2018-05-29] MEDS: Docusate Sodium 100 MG/10 ML UDCUP PO SCH (09:10)
[2018-05-29] MEDS: Gabapentin 300 MG CAP PO SCH ×3 (09:11→20:23)
[2018-05-29] MEDS: Famotidine 20 MG TAB PO SCH ×2 (09:11→20:24)
[2018-05-29] MEDS: Saccharomyces boulardii 250 MG CAP PO SCH (09:12)
[2018-05-29] MEDS: DULoxetine 30 MG CAP PO SCH ×2 (09:12→20:23)
[2018-05-29] MEDS: hydrOXYzine 25 MG TAB PO SCH ×2 (09:13→20:24)
[2018-05-29] MEDS: Lorazepam 0.5 MG TAB PO SCH ×3 (09:13→20:23)
[2018-05-29] MEDS: Fluticasone Propionate Nasal Spray 16 gm Bottle NASAL SCH (09:17)
[2018-05-29] MEDS: Nicotine 14 MG PATCH TOP SCH (09:18)
[2018-05-29] MEDS: Senokot 8.6 MG TAB PO SCH (20:23)
[2018-05-29] MEDS: Zolpidem Tartrate 5 MG TAB PO PRN (20:23)
[2018-05-29] MEDS: Mirtazapine 15 MG TAB PO SCH (20:24)
[2018-05-29] MEDS: Loratadine 10 MG TAB PO PRN (22:36)
[2018-05-30] MEDS: METHadone HCl 10 MG TAB PO SCH ×2 (06:11→12:51)
[2018-05-30] MEDS: Docusate Sodium 100 MG/10 ML UDCUP PO SCH (08:13)
[2018-05-30] MEDS: Lorazepam 0.5 MG TAB PO SCH ×2 (08:15→15:01)
[2018-05-30] MEDS: Saccharomyces boulardii 250 MG CAP PO SCH (08:15)
[2018-05-30] MEDS: DULoxetine 30 MG CAP PO SCH (08:15)
[2018-05-30] MEDS: Nicotine 14 MG PATCH TOP SCH (08:15)
[2018-05-30] MEDS: Famotidine 20 MG TAB PO SCH (08:16)
[2018-05-30] MEDS: Potassium Chloride 20 MEQ TAB PO SCH (08:16)
[2018-05-30] MEDS: Gabapentin 300 MG CAP PO SCH ×2 (08:16→15:01)
[2018-05-30] MEDS: Fluticasone Propionate Nasal Spray 16 gm Bottle NASAL SCH (08:17)
[2018-05-30] MEDS: hydrOXYzine 25 MG TAB PO SCH (08:25)
[2018-05-30] MEDS ORDERED: METHadone HCl 10 MG TAB PO ONE (18:00)
[2018-05-30] MEDS ORDERED: METHadone HCl 10 MG TAB ONE (18:44)
[2018-05-31] MEDS ORDERED: Lorazepam 0.5 MG TAB ONE ×6 (00:01→22:26)
[2018-05-31] MEDS ORDERED: hydrOXYzine 25 MG TAB ONE (00:01)
[2018-05-31] MEDS ORDERED: Famotidine 20 MG TAB ONE (00:03)
[2018-05-31] MEDS ORDERED: Famotidine 20 MG TAB PO ONE ×3 (00:14→21:00)
[2018-05-31] MEDS ORDERED: METHadone HCl 10 MG TAB PO ONE ×4 (00:14→18:00)
[2018-05-31] MEDS ORDERED: hydrOXYzine 25 MG TAB PO ONE ×3 (00:14→21:00)
[2018-05-31] MEDS ORDERED: Lorazepam 0.5 MG TAB PO ONE ×4 (00:14→21:00)
[2018-05-31] MEDS ORDERED: Gabapentin 300 MG CAP PO ONE ×3 (09:00→21:00)
[2018-05-31] MEDS ORDERED: Nicotine 14 MG PATCH TOP ONE (09:00)
[2018-05-31] MEDS ORDERED: Docusate Sodium 100 MG/10 ML UDCUP PO ONE (09:00)
[2018-05-31] MEDS ORDERED: Saccharomyces boulardii 250 MG CAP PO ONE (09:00)
[2018-05-31] MEDS ORDERED: Potassium Chloride 20 MEQ TAB PO ONE (09:00)
[2018-05-31] MEDS ORDERED: DULoxetine 30 MG CAP PO ONE ×2 (09:00→21:00)
[2018-05-31] MEDS ORDERED: Ibuprofen 200 MG TAB PO ONE (11:15)
[2018-05-31] MEDS ORDERED: Loratadine 10 MG TAB PO ONE (15:10)
[2018-05-31] MEDS: METHadone HCl 10 MG TAB PO SCH ×2 (16:03→16:04)
[2018-05-31] MEDS ORDERED: Senokot 8.6 MG TAB PO ONE (21:00)
[2018-05-31] MEDS ORDERED: Mirtazapine 15 MG TAB PO ONE (21:00)
[2018-05-31] MEDS ORDERED: DULoxetine 30 MG CAP ONE (22:26)
[2018-05-31] MEDS ORDERED: Mirtazapine 15 MG TAB ONE (22:26)
[2018-05-31] MEDS ORDERED: Zolpidem Tartrate 5 MG TAB PO ONE (22:50)
[2018-06-01] MEDS: METHadone HCl 10 MG TAB PO SCH ×5 (00:18→23:25)
[2018-06-01] MEDS: Potassium Chloride 20 MEQ TAB PO SCH ×2 (09:00→16:12)
[2018-06-01] MEDS: Lorazepam 0.5 MG TAB PO SCH ×6 (09:00→21:27)
[2018-06-01] MEDS: DULoxetine 30 MG CAP PO SCH ×3 (09:49→21:28)
[2018-06-01] MEDS: Famotidine 20 MG TAB PO SCH ×3 (09:49→21:30)
[2018-06-01] MEDS: hydrOXYzine 25 MG TAB PO SCH ×3 (09:50→21:29)
[2018-06-01] MEDS: Gabapentin 300 MG CAP PO SCH ×4 (09:50→21:29)
[2018-06-01] MEDS: Docusate Sodium 100 MG/10 ML UDCUP PO SCH ×2 (09:52→16:12)
[2018-06-01] MEDS: Fluticasone Propionate Nasal Spray 16 gm Bottle NASAL SCH ×2 (09:52→16:12)
[2018-06-01] MEDS: Saccharomyces boulardii 250 MG CAP PO SCH ×2 (09:53→16:13)
[2018-06-01] MEDS: Nicotine 14 MG PATCH TOP SCH ×2 (09:53→16:13)
[2018-06-01] MEDS: Mirtazapine 15 MG TAB PO SCH ×2 (16:12→21:30)
[2018-06-01] MEDS: Senokot 8.6 MG TAB PO SCH ×2 (16:12→21:27)
[2018-06-01] MEDS: Zolpidem Tartrate 5 MG TAB PO PRN (21:29)
[2018-06-02] MEDS: METHadone HCl 10 MG TAB PO SCH ×5 (05:06→22:31)
[2018-06-02] MEDS: DULoxetine 30 MG CAP PO SCH ×3 (08:53→22:29)
[2018-06-02] MEDS: Lorazepam 0.5 MG TAB PO SCH ×4 (08:53→22:30)
[2018-06-02] MEDS: Famotidine 20 MG TAB PO SCH ×3 (08:54→22:29)
[2018-06-02] MEDS: hydrOXYzine 25 MG TAB PO SCH ×3 (08:54→22:30)
[2018-06-02] MEDS: Gabapentin 300 MG CAP PO SCH ×4 (08:54→22:29)
[2018-06-02] MEDS: Saccharomyces boulardii 250 MG CAP PO SCH (08:54)
[2018-06-02] MEDS: Nicotine 14 MG PATCH TOP SCH (08:55)
[2018-06-02] MEDS: Potassium Chloride 20 MEQ TAB PO SCH (08:55)
[2018-06-02] MEDS: Docusate Sodium 100 MG/10 ML UDCUP PO SCH (08:55)
[2018-06-02] MEDS: Fluticasone Propionate Nasal Spray 16 gm Bottle NASAL SCH (08:58)
[2018-06-02] MEDS: Ibuprofen 800 MG TAB PO PRN (15:47)
[2018-06-02] MEDS ORDERED: Lorazepam 0.5 MG TAB ONE (15:50)
[2018-06-02] MEDS: Senokot 8.6 MG TAB PO SCH ×2 (21:51→22:30)
[2018-06-02] MEDS: Zolpidem Tartrate 5 MG TAB PO PRN (21:52)
[2018-06-02] MEDS: Mirtazapine 15 MG TAB PO SCH ×2 (21:53→22:30)
[2018-06-03] MEDS: METHadone HCl 10 MG TAB PO SCH ×4 (00:08→18:04)
[2018-06-03] MEDS: Lorazepam 0.5 MG TAB PO SCH ×3 (08:43→20:59)
[2018-06-03] MEDS: Nicotine 14 MG PATCH TOP SCH (08:44)
[2018-06-03] MEDS: DULoxetine 30 MG CAP PO SCH ×2 (08:44→20:58)
[2018-06-03] MEDS: Famotidine 20 MG TAB PO SCH ×2 (08:44→21:00)
[2018-06-03] MEDS: Saccharomyces boulardii 250 MG CAP PO SCH (08:44)
[2018-06-03] MEDS: Gabapentin 300 MG CAP PO SCH ×3 (08:45→20:59)
[2018-06-03] MEDS: Docusate Sodium 100 MG/10 ML UDCUP PO SCH (08:45)
[2018-06-03] MEDS: hydrOXYzine 25 MG TAB PO SCH ×2 (08:45→21:00)
[2018-06-03] MEDS: Potassium Chloride 20 MEQ TAB PO SCH (08:45)
[2018-06-03] MEDS: Fluticasone Propionate Nasal Spray 16 gm Bottle NASAL SCH (08:45)
[2018-06-03] MEDS: Ibuprofen 800 MG TAB PO PRN (14:47)
[2018-06-03] MEDS: Senokot 8.6 MG TAB PO SCH (20:59)
[2018-06-03] MEDS: Zolpidem Tartrate 5 MG TAB PO PRN (20:59)
[2018-06-03] MEDS: Mirtazapine 15 MG TAB PO SCH (21:00)
[2018-06-04] MEDS: METHadone HCl 10 MG TAB PO SCH ×5 (00:13→23:49)
[2018-06-04] MEDS: Nicotine 14 MG PATCH TOP SCH (08:20)
[2018-06-04] MEDS: Famotidine 20 MG TAB PO SCH ×2 (08:21→20:14)
[2018-06-04] MEDS: Lorazepam 0.5 MG TAB PO SCH ×3 (08:21→20:13)
[2018-06-04] MEDS: DULoxetine 30 MG CAP PO SCH ×2 (08:21→20:13)
[2018-06-04] MEDS: Saccharomyces boulardii 250 MG CAP PO SCH (08:22)
[2018-06-04] MEDS: Docusate Sodium 100 MG/10 ML UDCUP PO SCH (08:22)
[2018-06-04] MEDS: Gabapentin 300 MG CAP PO SCH ×3 (08:22→20:13)
[2018-06-04] MEDS: hydrOXYzine 25 MG TAB PO SCH ×2 (08:22→20:14)
[2018-06-04] MEDS: Potassium Chloride 20 MEQ TAB PO SCH (08:22)
[2018-06-04] MEDS: Fluticasone Propionate Nasal Spray 16 gm Bottle NASAL SCH (10:02)
[2018-06-04] MEDS: Senokot 8.6 MG TAB PO SCH (20:11)
[2018-06-04] MEDS: Zolpidem Tartrate 5 MG TAB PO PRN (20:14)
[2018-06-04] MEDS: Mirtazapine 15 MG TAB PO SCH (20:14)
[2018-06-05] MEDS: METHadone HCl 10 MG TAB PO SCH ×4 (05:38→23:42)
[2018-06-05] MEDS ORDERED: Fluticasone Propionate Nasal Spray 16 gm Bottle NASAL PRN (08:02)
[2018-06-05] MEDS ORDERED: hydrOXYzine 25 MG TAB ONE (08:19)
[2018-06-05] MEDS: Docusate Sodium 100 MG/10 ML UDCUP PO SCH (08:25)
[2018-06-05] MEDS: Nicotine 14 MG PATCH TOP SCH (08:27)
[2018-06-05] MEDS: hydrOXYzine 25 MG TAB PO SCH ×2 (08:27→20:58)
[2018-06-05] MEDS: Gabapentin 300 MG CAP PO SCH ×3 (08:27→20:56)
[2018-06-05] MEDS: Potassium Chloride 20 MEQ TAB PO SCH (08:27)
[2018-06-05] MEDS: Famotidine 20 MG TAB PO SCH ×2 (08:27→20:56)
[2018-06-05] MEDS: Lorazepam 0.5 MG TAB PO SCH ×3 (08:27→20:56)
[2018-06-05] MEDS: DULoxetine 30 MG CAP PO SCH ×2 (08:27→20:57)
[2018-06-05] MEDS: Saccharomyces boulardii 250 MG CAP PO SCH (08:27)
[2018-06-05] MEDS: Ibuprofen 800 MG TAB PO PRN ×2 (11:23→18:34)
[2018-06-05 14:54] LABS: #Basophils 0.1 thou/uL (0.0-0.2); #Eosinphils 0.3 thou/uL (0.0-0.7); #Lymphocytes 1.6 thou/uL (1.20-3.40); #Monocytes 0.5 thou/uL (0.11-0.59); #Neutrophils 4.1 thou/uL (1.40-6.50); %Basophils 0.9 % (0.0-1.0); %Lymphocytes 24.7 % (21.0-51.0); %Monocytes 7.5 % (0.0-10.0); %Neutrophils 61.9 % (42.0-75.0); Hemoglobin 14.2 g/dL (14.0-18.0); Mean Corpuscular HGB CONC 31.1 g/dL (32.0-36.0); Mean Corpuscular Volume 86.7 fL (78.0-98.0); Platelet Count 167 thou/uL (130-400); RBC Distribution Width 12.2 % (11.5-14.5); Red Blood Cell (RBC) Count 5.26 mill/uL (4.70-6.10); White Blood Cell (WBC) Count 6.7 thou/uL (4.8-10.8)
[2018-06-05 15:12] LABS: ALT (SGPT) 44 U/L (8-55); AST (SGOT) 27 U/L (5-34); Albumin 4.3 g/dL (3.5-5.0); Alkaline Phosphatase 102 U/L (40-150); Anion Gap 13 mmol/L (10-20); BUN (Urea Nitrogen) 23 mg/dL (8.9-20.6); Bilirubin, Total 0.3 mg/dL (0.2-1.2); Calc. Creatinine Clearance 177 mL/min (70-130); Calcium 9.7 mg/dL (7.8-10.44); Carbon Dioxide 27 mmol/L (22-29); Chloride 105 mmol/L (98-107); Estimated GFR-MDRD Greater than 90; Globulin 2.5 g/dL (2.4-3.5); Glucose 113 mg/dL (70-105); Potassium 4.5 mmol/L (3.5-5.1); Protein, Total 6.8 g/dL (6.0-8.3); Sodium 140 mmol/L (136-145)
[2018-06-05 15:14] LABS: RBC/HPF 0-3 HPF (0-3); Squamous Epithelial 0-3 HPF (0-3); WBC/HPF 0-3 HPF (0-3); Yeast-All Forms Rare HPF (None Seen)
--- NOTE | 2018-06-05 18:59 | RAD ---
PORTABLE CHEST 06/05/18 PA portable sitting exam was done and compared with a 05/14/18 study. The heart is normal in size. The lungs are clear. No acute infiltrate or effusion was appreciated on this single view. The mediastinum appears normal. IMPRESSION: No acute finding. POS: HOME
[2018-06-05] MEDS: Zolpidem Tartrate 5 MG TAB PO PRN (20:57)
[2018-06-05] MEDS: Senokot 8.6 MG TAB PO SCH (20:58)
[2018-06-05] MEDS: Mirtazapine 15 MG TAB PO SCH (20:58)
[2018-06-06] MEDS: METHadone HCl 10 MG TAB PO SCH ×4 (05:22→23:31)
[2018-06-06] MEDS: Potassium Chloride 20 MEQ TAB PO SCH (08:06)
[2018-06-06] MEDS: Lorazepam 0.5 MG TAB PO SCH ×3 (09:00→20:53)
[2018-06-06] MEDS: Docusate Sodium 100 MG/10 ML UDCUP PO SCH (09:05)
[2018-06-06] MEDS: Saccharomyces boulardii 250 MG CAP PO SCH (09:06)
[2018-06-06] MEDS: Gabapentin 300 MG CAP PO SCH ×3 (09:06→20:56)
[2018-06-06] MEDS: Famotidine 20 MG TAB PO SCH ×2 (09:06→21:00)
[2018-06-06] MEDS: DULoxetine 30 MG CAP PO SCH ×2 (09:07→21:00)
[2018-06-06] MEDS: hydrOXYzine 25 MG TAB PO SCH ×2 (09:08→20:56)
[2018-06-06] MEDS: Nicotine 14 MG PATCH TOP SCH ×2 (09:08→09:12)
[2018-06-06] MEDS: Mirtazapine 15 MG TAB PO SCH (20:58)
[2018-06-06] MEDS: Senokot 8.6 MG TAB PO SCH (20:59)
[2018-06-06] MEDS: Zolpidem Tartrate 5 MG TAB PO PRN (22:21)
[2018-06-06] MEDS: Loratadine 10 MG TAB PO PRN (23:31)
[2018-06-07] MEDS: METHadone HCl 10 MG TAB PO SCH ×4 (05:48→23:57)
[2018-06-07] MEDS: Ibuprofen 800 MG TAB PO PRN ×2 (06:32→14:45)
[2018-06-07] MEDS: DULoxetine 30 MG CAP PO SCH ×2 (09:34→20:43)
[2018-06-07] MEDS: hydrOXYzine 25 MG TAB PO SCH ×2 (09:34→20:44)
[2018-06-07] MEDS: Famotidine 20 MG TAB PO SCH ×2 (09:35→20:43)
[2018-06-07] MEDS: Lorazepam 0.5 MG TAB PO SCH ×3 (09:36→20:42)
[2018-06-07] MEDS: Saccharomyces boulardii 250 MG CAP PO SCH (09:38)
[2018-06-07] MEDS: Docusate Sodium 100 MG/10 ML UDCUP PO SCH (09:40)
[2018-06-07] MEDS: Potassium Chloride 20 MEQ TAB PO SCH (09:40)
[2018-06-07] MEDS: Gabapentin 300 MG CAP PO SCH ×3 (09:41→20:43)
[2018-06-07] MEDS: Nicotine 14 MG PATCH TOP SCH (09:44)
[2018-06-07] MEDS: Senokot 8.6 MG TAB PO SCH (20:42)
[2018-06-07] MEDS: Mirtazapine 15 MG TAB PO SCH (20:43)
[2018-06-07] MEDS: Zolpidem Tartrate 5 MG TAB PO PRN (20:43)
[2018-06-08] MEDS: METHadone HCl 10 MG TAB PO SCH ×3 (06:04→18:33)
[2018-06-08] MEDS: Gabapentin 300 MG CAP PO SCH ×3 (07:45→20:30)
[2018-06-08] MEDS: DULoxetine 30 MG CAP PO SCH ×2 (08:47→20:29)
[2018-06-08] MEDS: Docusate Sodium 100 MG/10 ML UDCUP PO SCH (08:47)
[2018-06-08] MEDS: Saccharomyces boulardii 250 MG CAP PO SCH (08:48)
[2018-06-08] MEDS: Lorazepam 0.5 MG TAB PO SCH ×3 (08:48→20:29)
[2018-06-08] MEDS: hydrOXYzine 25 MG TAB PO SCH ×2 (08:48→20:29)
[2018-06-08] MEDS: Famotidine 20 MG TAB PO SCH ×2 (08:48→20:29)
[2018-06-08] MEDS: Potassium Chloride 20 MEQ TAB PO SCH (08:49)
[2018-06-08] MEDS: Nicotine 14 MG PATCH TOP SCH (12:05)
[2018-06-08] MEDS: Senokot 8.6 MG TAB PO SCH (20:29)
[2018-06-08] MEDS: Zolpidem Tartrate 5 MG TAB PO PRN (20:30)
[2018-06-08] MEDS: Mirtazapine 15 MG TAB PO SCH (20:30)
[2018-06-09] MEDS: METHadone HCl 10 MG TAB PO SCH ×5 (00:01→23:53)
[2018-06-09] MEDS ORDERED: Nitroglycerin 0.4 MG TAB 1 EACH ONE (07:23)
[2018-06-09] MEDS: Docusate Sodium 100 MG/10 ML UDCUP PO SCH (08:19)
[2018-06-09] MEDS: Famotidine 20 MG TAB PO SCH ×2 (08:20→20:39)
[2018-06-09] MEDS: Potassium Chloride 20 MEQ TAB PO SCH (08:20)
[2018-06-09] MEDS: hydrOXYzine 25 MG TAB PO SCH ×2 (08:20→20:40)
[2018-06-09] MEDS: Gabapentin 300 MG CAP PO SCH ×3 (08:20→20:40)
[2018-06-09] MEDS: Saccharomyces boulardii 250 MG CAP PO SCH (08:20)
[2018-06-09] MEDS: DULoxetine 30 MG CAP PO SCH ×2 (08:20→20:40)
[2018-06-09] MEDS: Lorazepam 0.5 MG TAB PO SCH ×3 (08:20→20:39)
[2018-06-09] MEDS: Nicotine 14 MG PATCH TOP SCH (08:40)
[2018-06-09] MEDS: Mirtazapine 15 MG TAB PO SCH (20:39)
[2018-06-09] MEDS: Senokot 8.6 MG TAB PO SCH (20:40)
[2018-06-09] MEDS: Zolpidem Tartrate 5 MG TAB PO PRN (20:40)
[2018-06-10] MEDS: METHadone HCl 10 MG TAB PO SCH ×4 (05:46→23:45)
[2018-06-10] MEDS: Docusate Sodium 100 MG/10 ML UDCUP PO SCH (08:55)
[2018-06-10] MEDS: Famotidine 20 MG TAB PO SCH ×2 (08:56→20:34)
[2018-06-10] MEDS: DULoxetine 30 MG CAP PO SCH ×2 (08:57→20:34)
[2018-06-10] MEDS: Saccharomyces boulardii 250 MG CAP PO SCH (08:57)
[2018-06-10] MEDS: Gabapentin 300 MG CAP PO SCH ×3 (08:57→20:34)
[2018-06-10] MEDS: Nicotine 14 MG PATCH TOP SCH (08:57)
[2018-06-10] MEDS: Lorazepam 0.5 MG TAB PO SCH ×3 (08:57→20:34)
[2018-06-10] MEDS: hydrOXYzine 25 MG TAB PO SCH ×2 (08:57→20:34)
[2018-06-10] MEDS: Potassium Chloride 20 MEQ TAB PO SCH (08:57)
[2018-06-10] MEDS: Senokot 8.6 MG TAB PO SCH (20:34)
[2018-06-10] MEDS: Mirtazapine 15 MG TAB PO SCH (20:35)
[2018-06-10] MEDS: Zolpidem Tartrate 5 MG TAB PO PRN (20:35)
[2018-06-10] MEDS: Ibuprofen 800 MG TAB PO PRN (23:52)
[2018-06-11] MEDS: METHadone HCl 10 MG TAB PO SCH ×3 (05:47→17:39)
[2018-06-11] MEDS: DULoxetine 30 MG CAP PO SCH ×2 (08:31→20:51)
[2018-06-11] MEDS: Famotidine 20 MG TAB PO SCH ×2 (08:31→20:52)
[2018-06-11] MEDS: Docusate Sodium 100 MG/10 ML UDCUP PO SCH (08:31)
[2018-06-11] MEDS: Saccharomyces boulardii 250 MG CAP PO SCH (08:31)
[2018-06-11] MEDS: Lorazepam 0.5 MG TAB PO SCH ×3 (08:32→20:50)
[2018-06-11] MEDS: Gabapentin 300 MG CAP PO SCH ×3 (08:32→20:50)
[2018-06-11] MEDS: hydrOXYzine 25 MG TAB PO SCH ×2 (08:32→20:51)
[2018-06-11] MEDS: Potassium Chloride 20 MEQ TAB PO SCH (08:32)
[2018-06-11] MEDS: Zolpidem Tartrate 5 MG TAB PO PRN (20:50)
[2018-06-11] MEDS: Mirtazapine 15 MG TAB PO SCH (20:51)
[2018-06-11] MEDS: Senokot 8.6 MG TAB PO SCH (20:51)
[2018-06-12] MEDS: METHadone HCl 10 MG TAB PO SCH ×5 (06:04→23:58)
[2018-06-12] MEDS: Docusate Sodium 100 MG/10 ML UDCUP PO SCH (08:37)
[2018-06-12] MEDS: Famotidine 20 MG TAB PO SCH ×2 (08:38→20:37)
[2018-06-12] MEDS: hydrOXYzine 25 MG TAB PO SCH ×2 (08:39→20:39)
[2018-06-12] MEDS: Saccharomyces boulardii 250 MG CAP PO SCH (08:39)
[2018-06-12] MEDS: Lorazepam 0.5 MG TAB PO SCH ×3 (08:39→20:37)
[2018-06-12] MEDS: Gabapentin 300 MG CAP PO SCH ×3 (08:39→20:37)
[2018-06-12] MEDS: DULoxetine 30 MG CAP PO SCH ×2 (08:39→20:38)
[2018-06-12] MEDS: Potassium Chloride 20 MEQ TAB PO SCH (08:39)
[2018-06-12] MEDS: Senokot 8.6 MG TAB PO SCH (20:38)
[2018-06-12] MEDS: Zolpidem Tartrate 5 MG TAB PO PRN (20:38)
[2018-06-12] MEDS: Mirtazapine 15 MG TAB PO SCH (20:39)
[2018-06-12] MEDS: Loratadine 10 MG TAB PO PRN (22:28)
[2018-06-13] MEDS: METHadone HCl 10 MG TAB PO SCH ×3 (06:07→17:53)
[2018-06-13] MEDS: Lorazepam 0.5 MG TAB PO SCH ×3 (08:53→21:01)
[2018-06-13] MEDS: hydrOXYzine 25 MG TAB PO SCH ×2 (08:54→21:01)
[2018-06-13] MEDS: DULoxetine 30 MG CAP PO SCH ×2 (08:54→21:01)
[2018-06-13] MEDS: Gabapentin 300 MG CAP PO SCH ×3 (08:54→21:01)
[2018-06-13] MEDS: Famotidine 20 MG TAB PO SCH ×2 (08:54→21:01)
[2018-06-13] MEDS: Potassium Chloride 20 MEQ TAB PO SCH (08:55)
[2018-06-13] MEDS: Saccharomyces boulardii 250 MG CAP PO SCH (08:56)
[2018-06-13] MEDS: Docusate Sodium 100 MG/10 ML UDCUP PO SCH (08:57)
[2018-06-13] MEDS ORDERED: Lorazepam 0.5 MG TAB ONE (15:32)
[2018-06-13] MEDS: Zolpidem Tartrate 5 MG TAB PO PRN (21:01)
[2018-06-13] MEDS: Mirtazapine 15 MG TAB PO SCH (21:01)
[2018-06-13] MEDS: Senokot 8.6 MG TAB PO SCH (21:02)
[2018-06-14] MEDS: METHadone HCl 10 MG TAB PO SCH ×4 (05:35→17:57)
[2018-06-14] MEDS: Gabapentin 300 MG CAP PO SCH ×3 (09:00→20:33)
[2018-06-14] MEDS: Saccharomyces boulardii 250 MG CAP PO SCH (09:00)
[2018-06-14] MEDS: Famotidine 20 MG TAB PO SCH ×2 (09:00→20:32)
[2018-06-14] MEDS: hydrOXYzine 25 MG TAB PO SCH ×2 (09:00→20:33)
[2018-06-14] MEDS: DULoxetine 30 MG CAP PO SCH ×2 (09:00→20:32)
[2018-06-14] MEDS: Potassium Chloride 20 MEQ TAB PO SCH (09:01)
[2018-06-14] MEDS: Lorazepam 0.5 MG TAB PO SCH ×3 (09:01→20:32)
[2018-06-14] MEDS: Docusate Sodium 100 MG/10 ML UDCUP PO SCH (09:01)
[2018-06-14] MEDS: Zolpidem Tartrate 5 MG TAB PO PRN (20:31)
[2018-06-14] MEDS: Mirtazapine 15 MG TAB PO SCH (20:32)
[2018-06-14] MEDS: Senokot 8.6 MG TAB PO SCH (20:33)
[2018-06-15] MEDS: METHadone HCl 10 MG TAB PO SCH ×5 (00:36→23:57)
[2018-06-15] MEDS: Lorazepam 0.5 MG TAB PO SCH ×3 (08:36→20:29)
[2018-06-15] MEDS: Docusate Sodium 100 MG/10 ML UDCUP PO SCH (08:36)
[2018-06-15] MEDS: Gabapentin 300 MG CAP PO SCH ×3 (08:36→20:30)
[2018-06-15] MEDS: Famotidine 20 MG TAB PO SCH ×2 (08:37→20:30)
[2018-06-15] MEDS: hydrOXYzine 25 MG TAB PO SCH ×2 (08:37→20:30)
[2018-06-15] MEDS: DULoxetine 30 MG CAP PO SCH ×2 (08:37→20:29)
[2018-06-15] MEDS: Saccharomyces boulardii 250 MG CAP PO SCH (08:38)
[2018-06-15] MEDS: Potassium Chloride 20 MEQ TAB PO SCH (08:38)
[2018-06-15] MEDS: Ibuprofen 800 MG TAB PO PRN (08:40)
[2018-06-15] MEDS: Mirtazapine 15 MG TAB PO SCH (20:30)
[2018-06-15] MEDS: Zolpidem Tartrate 5 MG TAB PO PRN (20:30)
[2018-06-15] MEDS: Senokot 8.6 MG TAB PO SCH (20:30)
[2018-06-16] MEDS: METHadone HCl 10 MG TAB PO SCH ×4 (05:15→23:38)
[2018-06-16] MEDS: Docusate Sodium 100 MG/10 ML UDCUP PO SCH (09:15)
[2018-06-16] MEDS: Gabapentin 300 MG CAP PO SCH ×3 (09:16→20:27)
[2018-06-16] MEDS: Famotidine 20 MG TAB PO SCH ×2 (09:16→09:17)
[2018-06-16] MEDS: hydrOXYzine 25 MG TAB PO SCH ×2 (09:16→20:28)
[2018-06-16] MEDS: DULoxetine 30 MG CAP PO SCH ×2 (09:16→20:27)
[2018-06-16] MEDS: Saccharomyces boulardii 250 MG CAP PO SCH (09:16)
[2018-06-16] MEDS: Potassium Chloride 20 MEQ TAB PO SCH (09:17)
[2018-06-16] MEDS: Lorazepam 0.5 MG TAB PO SCH ×3 (09:17→20:27)
[2018-06-16] MEDS: Ibuprofen 800 MG TAB PO PRN (14:11)
[2018-06-16] MEDS: Senokot 8.6 MG TAB PO SCH (20:27)
[2018-06-16] MEDS: Zolpidem Tartrate 5 MG TAB PO PRN (20:28)
[2018-06-16] MEDS: Mirtazapine 15 MG TAB PO SCH (20:28)
[2018-06-17] MEDS: METHadone HCl 10 MG TAB PO SCH ×4 (05:30→23:57)
[2018-06-17] MEDS: Lorazepam 0.5 MG TAB PO SCH ×3 (09:13→20:43)
[2018-06-17] MEDS: DULoxetine 30 MG CAP PO SCH ×2 (09:13→20:44)
[2018-06-17] MEDS: Docusate Sodium 100 MG/10 ML UDCUP PO SCH (09:13)
[2018-06-17] MEDS: Gabapentin 300 MG CAP PO SCH ×3 (09:14→20:43)
[2018-06-17] MEDS: Famotidine 20 MG TAB PO SCH ×2 (09:14→20:45)
[2018-06-17] MEDS: Potassium Chloride 20 MEQ TAB PO SCH (09:14)
[2018-06-17] MEDS: hydrOXYzine 25 MG TAB PO SCH ×2 (09:14→20:44)
[2018-06-17] MEDS: Saccharomyces boulardii 250 MG CAP PO SCH (09:14)
[2018-06-17] MEDS: Mirtazapine 15 MG TAB PO SCH (20:44)
[2018-06-17] MEDS: Senokot 8.6 MG TAB PO SCH (20:44)
[2018-06-17] MEDS: Zolpidem Tartrate 5 MG TAB PO PRN (20:45)
[2018-06-17] MEDS: Loratadine 10 MG TAB PO PRN (22:50)
[2018-06-18] MEDS: METHadone HCl 10 MG TAB PO SCH ×4 (05:04→23:58)
[2018-06-18] MEDS ORDERED: Lorazepam 0.5 MG TAB ONE ×2 (08:32→14:45)
[2018-06-18] MEDS: DULoxetine 30 MG CAP PO SCH ×2 (09:13→20:12)
[2018-06-18] MEDS: Saccharomyces boulardii 250 MG CAP PO SCH (09:13)
[2018-06-18] MEDS: Docusate Sodium 100 MG/10 ML UDCUP PO SCH (09:13)
[2018-06-18] MEDS: Gabapentin 300 MG CAP PO SCH ×3 (09:13→20:13)
[2018-06-18] MEDS: Lorazepam 0.5 MG TAB PO SCH ×3 (09:13→20:12)
[2018-06-18] MEDS: Famotidine 20 MG TAB PO SCH ×2 (09:13→20:12)
[2018-06-18] MEDS: hydrOXYzine 25 MG TAB PO SCH ×2 (09:14→20:12)
[2018-06-18] MEDS: Potassium Chloride 20 MEQ TAB PO SCH (09:14)
[2018-06-18] MEDS: Senokot 8.6 MG TAB PO SCH (20:11)
[2018-06-18] MEDS: Mirtazapine 15 MG TAB PO SCH (20:12)
[2018-06-18] MEDS: Zolpidem Tartrate 5 MG TAB PO PRN (20:13)
[2018-06-19] MEDS: METHadone HCl 10 MG TAB PO SCH ×4 (05:01→23:58)
[2018-06-19] MEDS: Saccharomyces boulardii 250 MG CAP PO SCH (08:05)
[2018-06-19] MEDS: DULoxetine 30 MG CAP PO SCH ×2 (08:05→20:29)
[2018-06-19] MEDS: Docusate Sodium 100 MG/10 ML UDCUP PO SCH (08:05)
[2018-06-19] MEDS: Famotidine 20 MG TAB PO SCH ×2 (08:06→20:30)
[2018-06-19] MEDS: Lorazepam 0.5 MG TAB PO SCH ×3 (08:06→20:29)
[2018-06-19] MEDS: Potassium Chloride 20 MEQ TAB PO SCH (08:06)
[2018-06-19] MEDS: Gabapentin 300 MG CAP PO SCH ×3 (08:06→20:30)
[2018-06-19] MEDS: hydrOXYzine 25 MG TAB PO SCH ×2 (08:06→20:30)
[2018-06-19] MEDS: Senokot 8.6 MG TAB PO SCH (20:29)
[2018-06-19] MEDS: Zolpidem Tartrate 5 MG TAB PO PRN (20:30)
[2018-06-19] MEDS: Mirtazapine 15 MG TAB PO SCH (20:30)
[2018-06-20] MEDS: METHadone HCl 10 MG TAB PO SCH ×3 (05:09→18:13)
[2018-06-20] MEDS: Famotidine 20 MG TAB PO SCH ×2 (09:05→20:44)
[2018-06-20] MEDS: Saccharomyces boulardii 250 MG CAP PO SCH (09:06)
[2018-06-20] MEDS: Potassium Chloride 20 MEQ TAB PO SCH (09:06)
[2018-06-20] MEDS: Lorazepam 0.5 MG TAB PO SCH ×3 (09:06→20:43)
[2018-06-20] MEDS: DULoxetine 30 MG CAP PO SCH ×2 (09:06→20:43)
[2018-06-20] MEDS: Gabapentin 300 MG CAP PO SCH ×3 (09:07→20:44)
[2018-06-20] MEDS: Docusate Sodium 100 MG/10 ML UDCUP PO SCH (09:07)
[2018-06-20] MEDS: hydrOXYzine 25 MG TAB PO SCH ×2 (09:07→20:45)
[2018-06-20] MEDS: Ibuprofen 800 MG TAB PO PRN (18:40)
[2018-06-20] MEDS: Mirtazapine 15 MG TAB PO SCH (20:43)
[2018-06-20] MEDS: Senokot 8.6 MG TAB PO SCH (20:44)
[2018-06-20] MEDS: Zolpidem Tartrate 5 MG TAB PO PRN (20:44)
[2018-06-21] MEDS: METHadone HCl 10 MG TAB PO SCH ×5 (00:16→23:54)
[2018-06-21] MEDS: Lorazepam 0.5 MG TAB PO SCH ×3 (09:00→20:46)
[2018-06-21] MEDS: Docusate Sodium 100 MG/10 ML UDCUP PO SCH (09:00)
[2018-06-21] MEDS: DULoxetine 30 MG CAP PO SCH ×2 (09:01→20:45)
[2018-06-21] MEDS: hydrOXYzine 25 MG TAB PO SCH ×2 (09:01→20:46)
[2018-06-21] MEDS: Potassium Chloride 20 MEQ TAB PO SCH (09:01)
[2018-06-21] MEDS: Gabapentin 300 MG CAP PO SCH ×3 (09:02→20:46)
[2018-06-21] MEDS: Famotidine 20 MG TAB PO SCH ×2 (09:02→20:46)
[2018-06-21] MEDS: Saccharomyces boulardii 250 MG CAP PO SCH (09:02)
[2018-06-21] MEDS: Senokot 8.6 MG TAB PO SCH (20:45)
[2018-06-21] MEDS: Zolpidem Tartrate 5 MG TAB PO PRN (20:45)
[2018-06-21] MEDS: Mirtazapine 15 MG TAB PO SCH (20:46)
[2018-06-22] MEDS: METHadone HCl 10 MG TAB PO SCH ×4 (06:02→23:49)
[2018-06-22] MEDS: Lorazepam 0.5 MG TAB PO SCH ×3 (08:53→20:45)
[2018-06-22] MEDS: Saccharomyces boulardii 250 MG CAP PO SCH (08:53)
[2018-06-22] MEDS: hydrOXYzine 25 MG TAB PO SCH ×2 (08:53→20:46)
[2018-06-22] MEDS: Potassium Chloride 20 MEQ TAB PO SCH (08:54)
[2018-06-22] MEDS: Gabapentin 300 MG CAP PO SCH ×3 (08:54→20:46)
[2018-06-22] MEDS: Docusate Sodium 100 MG/10 ML UDCUP PO SCH (08:54)
[2018-06-22] MEDS: Famotidine 20 MG TAB PO SCH ×2 (08:55→20:45)
[2018-06-22] MEDS: DULoxetine 30 MG CAP PO SCH ×2 (08:55→20:45)
[2018-06-22] MEDS: Ibuprofen 800 MG TAB PO PRN (15:01)
[2018-06-22] MEDS: Zolpidem Tartrate 5 MG TAB PO PRN (20:45)
[2018-06-22] MEDS: Mirtazapine 15 MG TAB PO SCH (20:45)
[2018-06-22] MEDS: Senokot 8.6 MG TAB PO SCH (20:45)
[2018-06-22] MEDS: Loratadine 10 MG TAB PO PRN (23:49)
[2018-06-23] MEDS: METHadone HCl 10 MG TAB PO SCH ×4 (06:09→23:54)
[2018-06-23] MEDS: hydrOXYzine 25 MG TAB PO SCH ×2 (08:48→20:45)
[2018-06-23] MEDS: DULoxetine 30 MG CAP PO SCH ×2 (08:48→20:45)
[2018-06-23] MEDS: Famotidine 20 MG TAB PO SCH ×2 (08:48→20:45)
[2018-06-23] MEDS: Gabapentin 300 MG CAP PO SCH ×3 (08:48→20:46)
[2018-06-23] MEDS: Docusate Sodium 100 MG/10 ML UDCUP PO SCH (08:49)
[2018-06-23] MEDS: Potassium Chloride 20 MEQ TAB PO SCH (08:49)
[2018-06-23] MEDS: Saccharomyces boulardii 250 MG CAP PO SCH (08:49)
[2018-06-23] MEDS: Lorazepam 0.5 MG TAB PO SCH ×3 (08:49→20:45)
[2018-06-23] MEDS: Zolpidem Tartrate 5 MG TAB PO PRN (20:44)
[2018-06-23] MEDS: Senokot 8.6 MG TAB PO SCH (20:44)
[2018-06-23] MEDS: Mirtazapine 15 MG TAB PO SCH (20:45)
[2018-06-24] MEDS: METHadone HCl 10 MG TAB PO SCH ×4 (06:16→23:58)
[2018-06-24] MEDS: Gabapentin 300 MG CAP PO SCH ×3 (08:23→20:28)
[2018-06-24] MEDS: Docusate Sodium 100 MG/10 ML UDCUP PO SCH (08:23)
[2018-06-24] MEDS: Potassium Chloride 20 MEQ TAB PO SCH (08:23)
[2018-06-24] MEDS: Lorazepam 0.5 MG TAB PO SCH ×3 (08:23→20:29)
[2018-06-24] MEDS: DULoxetine 30 MG CAP PO SCH ×2 (08:23→20:28)
[2018-06-24] MEDS: hydrOXYzine 25 MG TAB PO SCH ×2 (08:23→20:30)
[2018-06-24] MEDS: Famotidine 20 MG TAB PO SCH ×2 (08:23→20:30)
[2018-06-24] MEDS: Saccharomyces boulardii 250 MG CAP PO SCH (08:23)
[2018-06-24] MEDS: Mirtazapine 15 MG TAB PO SCH (20:29)
[2018-06-24] MEDS: Senokot 8.6 MG TAB PO SCH (20:30)
[2018-06-24] MEDS: Zolpidem Tartrate 5 MG TAB PO PRN (20:30)
[2018-06-25] MEDS: METHadone HCl 10 MG TAB PO SCH ×4 (06:04→23:54)
[2018-06-25] MEDS ORDERED: Lorazepam 0.5 MG TAB ONE ×2 (07:59→14:46)
[2018-06-25] MEDS: Docusate Sodium 100 MG/10 ML UDCUP PO SCH (08:16)
[2018-06-25] MEDS: hydrOXYzine 25 MG TAB PO SCH ×2 (08:17→19:59)
[2018-06-25] MEDS: Saccharomyces boulardii 250 MG CAP PO SCH (08:17)
[2018-06-25] MEDS: DULoxetine 30 MG CAP PO SCH ×2 (08:17→19:58)
[2018-06-25] MEDS: Lorazepam 0.5 MG TAB PO SCH ×3 (08:17→19:57)
[2018-06-25] MEDS: Famotidine 20 MG TAB PO SCH ×2 (08:17→19:58)
[2018-06-25] MEDS: Potassium Chloride 20 MEQ TAB PO SCH (08:17)
[2018-06-25] MEDS: Gabapentin 300 MG CAP PO SCH ×3 (08:18→19:59)
[2018-06-25] MEDS: Senokot 8.6 MG TAB PO SCH (19:58)
[2018-06-25] MEDS: Mirtazapine 15 MG TAB PO SCH (19:59)
[2018-06-25] MEDS: Zolpidem Tartrate 5 MG TAB PO PRN (19:59)
[2018-06-25] MEDS: Loratadine 10 MG TAB PO PRN (21:47)
[2018-06-26] MEDS: METHadone HCl 10 MG TAB PO SCH ×4 (06:01→23:56)
[2018-06-26] MEDS: Docusate Sodium 100 MG/10 ML UDCUP PO SCH (08:11)
[2018-06-26] MEDS: Lorazepam 0.5 MG TAB PO SCH ×3 (08:12→20:05)
[2018-06-26] MEDS: Saccharomyces boulardii 250 MG CAP PO SCH (08:12)
[2018-06-26] MEDS: Potassium Chloride 20 MEQ TAB PO SCH (08:13)
[2018-06-26] MEDS: DULoxetine 30 MG CAP PO SCH ×2 (08:13→20:05)
[2018-06-26] MEDS: Famotidine 20 MG TAB PO SCH ×2 (08:13→20:06)
[2018-06-26] MEDS: Gabapentin 300 MG CAP PO SCH ×3 (08:13→20:05)
[2018-06-26] MEDS: hydrOXYzine 25 MG TAB PO SCH ×2 (08:13→20:06)
[2018-06-26] MEDS: Ibuprofen 800 MG TAB PO PRN (14:00)
[2018-06-26] MEDS: Senokot 8.6 MG TAB PO SCH (20:05)
[2018-06-26] MEDS: Zolpidem Tartrate 5 MG TAB PO PRN (20:06)
[2018-06-26] MEDS: Mirtazapine 15 MG TAB PO SCH (20:06)
[2018-06-26] MEDS: Loratadine 10 MG TAB PO PRN (22:07)
[2018-06-27] MEDS: METHadone HCl 10 MG TAB PO SCH ×4 (06:05→23:52)
[2018-06-27] MEDS: Ibuprofen 800 MG TAB PO PRN (09:05)
[2018-06-27] MEDS: Saccharomyces boulardii 250 MG CAP PO SCH (09:06)
[2018-06-27] MEDS: Famotidine 20 MG TAB PO SCH ×2 (09:06→20:44)
[2018-06-27] MEDS: Lorazepam 0.5 MG TAB PO SCH ×3 (09:06→20:44)
[2018-06-27] MEDS: DULoxetine 30 MG CAP PO SCH ×2 (09:07→20:43)
[2018-06-27] MEDS: Gabapentin 300 MG CAP PO SCH ×3 (09:07→20:44)
[2018-06-27] MEDS: hydrOXYzine 25 MG TAB PO SCH ×2 (09:07→20:44)
[2018-06-27] MEDS: Potassium Chloride 20 MEQ TAB PO SCH (09:07)
[2018-06-27] MEDS: Docusate Sodium 100 MG/10 ML UDCUP PO SCH (09:08)
[2018-06-27] MEDS: Senokot 8.6 MG TAB PO SCH (20:44)
[2018-06-27] MEDS: Zolpidem Tartrate 5 MG TAB PO PRN (20:44)
[2018-06-27] MEDS: Mirtazapine 15 MG TAB PO SCH (20:44)
[2018-06-28] MEDS: METHadone HCl 10 MG TAB PO SCH ×4 (05:49→23:47)
[2018-06-28] MEDS: Gabapentin 300 MG CAP PO SCH ×3 (09:08→20:45)
[2018-06-28] MEDS: DULoxetine 30 MG CAP PO SCH ×2 (09:08→20:45)
[2018-06-28] MEDS: Lorazepam 0.5 MG TAB PO SCH ×3 (09:08→20:44)
[2018-06-28] MEDS: Saccharomyces boulardii 250 MG CAP PO SCH (09:08)
[2018-06-28] MEDS: Famotidine 20 MG TAB PO SCH ×2 (09:09→20:45)
[2018-06-28] MEDS: hydrOXYzine 25 MG TAB PO SCH ×2 (09:09→20:45)
[2018-06-28] MEDS: Potassium Chloride 20 MEQ TAB PO SCH (09:09)
[2018-06-28] MEDS: Docusate Sodium 100 MG/10 ML UDCUP PO SCH (09:14)
[2018-06-28] MEDS: Ibuprofen 800 MG TAB PO PRN (20:43)
[2018-06-28] MEDS: Senokot 8.6 MG TAB PO SCH (20:44)
[2018-06-28] MEDS: Mirtazapine 15 MG TAB PO SCH (20:45)
[2018-06-28] MEDS: Zolpidem Tartrate 5 MG TAB PO PRN (20:45)
[2018-06-29] MEDS: METHadone HCl 10 MG TAB PO SCH ×4 (05:11→23:54)
[2018-06-29] MEDS: DULoxetine 30 MG CAP PO SCH ×2 (08:41→20:07)
[2018-06-29] MEDS: Docusate 100 MG CAP PO SCH (08:41)
[2018-06-29] MEDS: Potassium Chloride 20 MEQ TAB PO SCH (08:41)
[2018-06-29] MEDS: Saccharomyces boulardii 250 MG CAP PO SCH (08:42)
[2018-06-29] MEDS: Gabapentin 300 MG CAP PO SCH ×3 (08:42→20:07)
[2018-06-29] MEDS: hydrOXYzine 25 MG TAB PO SCH ×2 (08:42→20:07)
[2018-06-29] MEDS: Famotidine 20 MG TAB PO SCH ×2 (08:42→20:08)
[2018-06-29] MEDS: Lorazepam 0.5 MG TAB PO SCH ×3 (08:43→20:07)
[2018-06-29] MEDS: Senokot 8.6 MG TAB PO SCH (20:07)
[2018-06-29] MEDS: Mirtazapine 15 MG TAB PO SCH (20:07)
[2018-06-29] MEDS: Zolpidem Tartrate 5 MG TAB PO PRN (20:07)
[2018-06-29] MEDS: Ibuprofen 800 MG TAB PO PRN (22:46)
[2018-06-30] MEDS: METHadone HCl 10 MG TAB PO SCH ×4 (05:03→23:45)
[2018-06-30] MEDS: Potassium Chloride 20 MEQ TAB PO SCH (08:56)
[2018-06-30] MEDS: DULoxetine 30 MG CAP PO SCH ×2 (08:56→20:42)
[2018-06-30] MEDS: hydrOXYzine 25 MG TAB PO SCH ×2 (08:56→20:41)
[2018-06-30] MEDS: Lorazepam 0.5 MG TAB PO SCH ×3 (08:56→20:42)
[2018-06-30] MEDS: Saccharomyces boulardii 250 MG CAP PO SCH (08:56)
[2018-06-30] MEDS: Gabapentin 300 MG CAP PO SCH ×3 (08:57→20:42)
[2018-06-30] MEDS: Docusate 100 MG CAP PO SCH (08:57)
[2018-06-30] MEDS: Famotidine 20 MG TAB PO SCH ×2 (08:57→20:43)
[2018-06-30] MEDS: Zolpidem Tartrate 5 MG TAB PO PRN (20:42)
[2018-06-30] MEDS: Mirtazapine 15 MG TAB PO SCH (20:43)
[2018-06-30] MEDS: Senokot 8.6 MG TAB PO SCH (21:08)
[2018-06-30] MEDS: Loratadine 10 MG TAB PO PRN (22:21)
[2018-07-01] MEDS: METHadone HCl 10 MG TAB PO SCH ×4 (05:07→23:58)
[2018-07-01] MEDS: DULoxetine 30 MG CAP PO SCH ×2 (08:24→20:30)
[2018-07-01] MEDS: Lorazepam 0.5 MG TAB PO SCH ×3 (08:24→20:33)
[2018-07-01] MEDS: hydrOXYzine 25 MG TAB PO SCH ×2 (08:24→20:30)
[2018-07-01] MEDS: Potassium Chloride 20 MEQ TAB PO SCH (08:25)
[2018-07-01] MEDS: Famotidine 20 MG TAB PO SCH ×2 (08:25→20:30)
[2018-07-01] MEDS: Saccharomyces boulardii 250 MG CAP PO SCH (08:25)
[2018-07-01] MEDS: Docusate 100 MG CAP PO SCH (08:25)
[2018-07-01] MEDS: Gabapentin 300 MG CAP PO SCH ×3 (08:25→20:30)
[2018-07-01] MEDS: Senokot 8.6 MG TAB PO SCH (20:29)
[2018-07-01] MEDS: Mirtazapine 15 MG TAB PO SCH (20:30)
[2018-07-01] MEDS: Zolpidem Tartrate 5 MG TAB PO PRN (20:33)
[2018-07-02] MEDS: METHadone HCl 10 MG TAB PO SCH ×4 (05:46→23:52)
[2018-07-02] MEDS: Lorazepam 0.5 MG TAB PO SCH ×3 (08:48→20:28)
[2018-07-02] MEDS: DULoxetine 30 MG CAP PO SCH ×2 (08:48→20:29)
[2018-07-02] MEDS: hydrOXYzine 25 MG TAB PO SCH ×2 (08:48→20:30)
[2018-07-02] MEDS: Famotidine 20 MG TAB PO SCH ×2 (08:49→20:30)
[2018-07-02] MEDS: Gabapentin 300 MG CAP PO SCH ×3 (08:49→20:29)
[2018-07-02] MEDS: Docusate 100 MG CAP PO SCH (08:49)
[2018-07-02] MEDS: Potassium Chloride 20 MEQ TAB PO SCH (08:49)
[2018-07-02] MEDS: Saccharomyces boulardii 250 MG CAP PO SCH (08:49)
[2018-07-02] MEDS: Senokot 8.6 MG TAB PO SCH (20:29)
[2018-07-02] MEDS: Zolpidem Tartrate 5 MG TAB PO PRN (20:30)
[2018-07-02] MEDS: Mirtazapine 15 MG TAB PO SCH (20:31)
[2018-07-03] MEDS: METHadone HCl 10 MG TAB PO SCH ×4 (05:13→23:50)
[2018-07-03] MEDS: Lorazepam 0.5 MG TAB PO SCH ×3 (08:07→20:41)
[2018-07-03] MEDS: Potassium Chloride 20 MEQ TAB PO SCH (08:08)
[2018-07-03] MEDS: Famotidine 20 MG TAB PO SCH ×2 (08:08→20:43)
[2018-07-03] MEDS: hydrOXYzine 25 MG TAB PO SCH ×3 (08:08→20:43)
[2018-07-03] MEDS: DULoxetine 30 MG CAP PO SCH ×2 (08:08→20:42)
[2018-07-03] MEDS: Saccharomyces boulardii 250 MG CAP PO SCH (08:08)
[2018-07-03] MEDS: Docusate 100 MG CAP PO SCH (08:08)
[2018-07-03] MEDS: Gabapentin 300 MG CAP PO SCH ×3 (08:08→20:42)
[2018-07-03] MEDS: Senokot 8.6 MG TAB PO SCH (20:42)
[2018-07-03] MEDS: Zolpidem Tartrate 5 MG TAB PO PRN (20:42)
[2018-07-03] MEDS: Mirtazapine 15 MG TAB PO SCH (20:42)
[2018-07-04] MEDS: Ibuprofen 800 MG TAB PO PRN (00:44)
[2018-07-04] MEDS: METHadone HCl 10 MG TAB PO SCH ×4 (05:11→23:55)
[2018-07-04] MEDS: hydrOXYzine 25 MG TAB PO SCH ×2 (08:32→21:07)
[2018-07-04] MEDS: Saccharomyces boulardii 250 MG CAP PO SCH (08:32)
[2018-07-04] MEDS: Gabapentin 300 MG CAP PO SCH ×3 (08:32→21:06)
[2018-07-04] MEDS: Famotidine 20 MG TAB PO SCH ×2 (08:32→21:07)
[2018-07-04] MEDS: Potassium Chloride 20 MEQ TAB PO SCH (08:32)
[2018-07-04] MEDS: DULoxetine 30 MG CAP PO SCH ×2 (08:32→21:06)
[2018-07-04] MEDS: Docusate 100 MG CAP PO SCH (08:32)
[2018-07-04] MEDS: Lorazepam 0.5 MG TAB PO SCH ×3 (08:32→21:07)
[2018-07-04] MEDS: Zolpidem Tartrate 5 MG TAB PO PRN (21:06)
[2018-07-04] MEDS: Mirtazapine 15 MG TAB PO SCH (21:06)
[2018-07-04] MEDS: Senokot 8.6 MG TAB PO SCH (21:06)
[2018-07-04] MEDS: Loratadine 10 MG TAB PO PRN (22:46)
[2018-07-05] MEDS: METHadone HCl 10 MG TAB PO SCH ×3 (05:11→17:58)
[2018-07-05] MEDS: DULoxetine 30 MG CAP PO SCH ×2 (09:33→20:47)
[2018-07-05] MEDS: Docusate 100 MG CAP PO SCH (09:33)
[2018-07-05] MEDS: Potassium Chloride 20 MEQ TAB PO SCH (09:33)
[2018-07-05] MEDS: Famotidine 20 MG TAB PO SCH ×2 (09:34→20:48)
[2018-07-05] MEDS: Lorazepam 0.5 MG TAB PO SCH ×3 (09:34→20:48)
[2018-07-05] MEDS: Gabapentin 300 MG CAP PO SCH ×3 (09:34→20:48)
[2018-07-05] MEDS: Saccharomyces boulardii 250 MG CAP PO SCH (09:34)
[2018-07-05] MEDS: hydrOXYzine 25 MG TAB PO SCH ×2 (09:35→20:49)
[2018-07-05] MEDS: Ibuprofen 800 MG TAB PO PRN (10:30)
[2018-07-05] MEDS: Senokot 8.6 MG TAB PO SCH (20:48)
[2018-07-05] MEDS: Zolpidem Tartrate 5 MG TAB PO PRN (20:48)
[2018-07-05] MEDS: Mirtazapine 15 MG TAB PO SCH (20:49)
[2018-07-06] MEDS: METHadone HCl 10 MG TAB PO SCH ×5 (00:06→23:57)
[2018-07-06] MEDS: Lorazepam 0.5 MG TAB PO SCH ×3 (08:19→21:56)
[2018-07-06] MEDS: DULoxetine 30 MG CAP PO SCH ×2 (08:19→21:57)
[2018-07-06] MEDS: Docusate 100 MG CAP PO SCH (08:19)
[2018-07-06] MEDS: Gabapentin 300 MG CAP PO SCH ×3 (08:20→21:56)
[2018-07-06] MEDS: Saccharomyces boulardii 250 MG CAP PO SCH (08:20)
[2018-07-06] MEDS: hydrOXYzine 25 MG TAB PO SCH ×2 (08:20→21:56)
[2018-07-06] MEDS: Famotidine 20 MG TAB PO SCH ×2 (08:20→21:56)
[2018-07-06] MEDS: Potassium Chloride 20 MEQ TAB PO SCH (08:21)
[2018-07-06 14:58] VITALS: BMI 29.3
[2018-07-06] MEDS: Senokot 8.6 MG TAB PO SCH (21:56)
[2018-07-06] MEDS: Zolpidem Tartrate 5 MG TAB PO PRN (21:56)
[2018-07-06] MEDS: Mirtazapine 15 MG TAB PO SCH (21:57)
[2018-07-06] MEDS: Loratadine 10 MG TAB PO PRN (23:58)
[2018-07-07] MEDS: METHadone HCl 10 MG TAB PO SCH ×4 (06:17→23:55)
[2018-07-07] MEDS: DULoxetine 30 MG CAP PO SCH ×2 (09:25→21:04)
[2018-07-07] MEDS: Saccharomyces boulardii 250 MG CAP PO SCH (09:25)
[2018-07-07] MEDS: Docusate 100 MG CAP PO SCH (09:25)
[2018-07-07] MEDS: hydrOXYzine 25 MG TAB PO SCH ×2 (09:26→21:05)
[2018-07-07] MEDS: Famotidine 20 MG TAB PO SCH ×2 (09:26→21:04)
[2018-07-07] MEDS: Potassium Chloride 20 MEQ TAB PO SCH (09:26)
[2018-07-07] MEDS: Gabapentin 300 MG CAP PO SCH ×3 (09:26→21:03)
[2018-07-07] MEDS: Lorazepam 0.5 MG TAB PO SCH ×3 (09:26→21:03)
[2018-07-07] MEDS: Mirtazapine 15 MG TAB PO SCH (21:04)
[2018-07-07] MEDS: Senokot 8.6 MG TAB PO SCH (21:04)
[2018-07-07] MEDS: Zolpidem Tartrate 5 MG TAB PO PRN (21:04)
[2018-07-08] MEDS: Ibuprofen 800 MG TAB PO PRN (05:46)
[2018-07-08] MEDS: METHadone HCl 10 MG TAB PO SCH ×4 (05:47→23:54)
[2018-07-08] MEDS: Saccharomyces boulardii 250 MG CAP PO SCH (08:45)
[2018-07-08] MEDS: Lorazepam 0.5 MG TAB PO SCH ×3 (08:45→20:44)
[2018-07-08] MEDS: hydrOXYzine 25 MG TAB PO SCH ×2 (08:45→20:47)
[2018-07-08] MEDS: Gabapentin 300 MG CAP PO SCH ×3 (08:45→20:45)
[2018-07-08] MEDS: Potassium Chloride 20 MEQ TAB PO SCH (08:45)
[2018-07-08] MEDS: Docusate 100 MG CAP PO SCH (08:46)
[2018-07-08] MEDS: DULoxetine 30 MG CAP PO SCH ×2 (08:46→20:46)
[2018-07-08] MEDS: Famotidine 20 MG TAB PO SCH ×2 (08:46→20:48)
[2018-07-08] MEDS: Senokot 8.6 MG TAB PO SCH (20:46)
[2018-07-08] MEDS: Zolpidem Tartrate 5 MG TAB PO PRN (20:47)
[2018-07-08] MEDS: Mirtazapine 15 MG TAB PO SCH (20:54)
[2018-07-09] MEDS: METHadone HCl 10 MG TAB PO SCH ×3 (05:37→17:36)
[2018-07-09] MEDS: Saccharomyces boulardii 250 MG CAP PO SCH (08:29)
[2018-07-09] MEDS: Gabapentin 300 MG CAP PO SCH ×3 (08:29→20:30)
[2018-07-09] MEDS: Potassium Chloride 20 MEQ TAB PO SCH (08:29)
[2018-07-09] MEDS: Lorazepam 0.5 MG TAB PO SCH ×3 (08:29→20:29)
[2018-07-09] MEDS: Famotidine 20 MG TAB PO SCH ×2 (08:29→20:30)
[2018-07-09] MEDS: hydrOXYzine 25 MG TAB PO SCH ×2 (08:30→20:31)
[2018-07-09] MEDS: Docusate 100 MG CAP PO SCH (08:30)
[2018-07-09] MEDS: DULoxetine 30 MG CAP PO SCH ×3 (08:31→20:30)
[2018-07-09] MEDS: Zolpidem Tartrate 5 MG TAB PO PRN (20:30)
[2018-07-09] MEDS: Senokot 8.6 MG TAB PO SCH (20:30)
[2018-07-09] MEDS: Mirtazapine 15 MG TAB PO SCH (20:30)
[2018-07-10] MEDS: METHadone HCl 10 MG TAB PO SCH ×4 (00:04→17:19)
[2018-07-10] MEDS: DULoxetine 30 MG CAP PO SCH ×2 (08:47→21:14)
[2018-07-10] MEDS: Lorazepam 0.5 MG TAB PO SCH ×3 (08:48→21:14)
[2018-07-10] MEDS: hydrOXYzine 25 MG TAB PO SCH ×2 (08:48→21:15)
[2018-07-10] MEDS: Saccharomyces boulardii 250 MG CAP PO SCH (08:48)
[2018-07-10] MEDS: Potassium Chloride 20 MEQ TAB PO SCH (08:48)
[2018-07-10] MEDS: Docusate 100 MG CAP PO SCH (08:48)
[2018-07-10] MEDS: Famotidine 20 MG TAB PO SCH ×2 (08:48→21:15)
[2018-07-10] MEDS: Gabapentin 300 MG CAP PO SCH ×3 (08:48→21:14)
[2018-07-10] MEDS: Zolpidem Tartrate 5 MG TAB PO PRN (21:14)
[2018-07-10] MEDS: Mirtazapine 15 MG TAB PO SCH (21:14)
[2018-07-10] MEDS: Senokot 8.6 MG TAB PO SCH (21:14)
[2018-07-11] MEDS: METHadone HCl 10 MG TAB PO SCH ×3 (00:08→12:39)
[2018-07-11 05:58] VITALS: BP 111/74; TEMP 98
[2018-07-11] MEDS: Saccharomyces boulardii 250 MG CAP PO SCH (09:58)
[2018-07-11] MEDS: Lorazepam 0.5 MG TAB PO SCH (09:58)
[2018-07-11] MEDS: Potassium Chloride 20 MEQ TAB PO SCH (09:59)
[2018-07-11] MEDS: Gabapentin 300 MG CAP PO SCH (09:59)
[2018-07-11] MEDS: hydrOXYzine 25 MG TAB PO SCH (09:59)
[2018-07-11] MEDS: DULoxetine 30 MG CAP PO SCH (09:59)
[2018-07-11] MEDS: Famotidine 20 MG TAB PO SCH (09:59)
[2018-07-11] MEDS: Docusate 100 MG CAP PO SCH (09:59)
== END 2018-07-11 14:01 | disposition home or self-care (01) | DRG 871 ==
LOC: BURMED 13:00
PROVIDERS: ADMIT Family Medicine; ATTEND Family Medicine
DX: A41.9 Sepsis, unspecified organism (principal); L89.154 Pressure ulcer of sacral region, stage 4; J18.9 Pneumonia, unspecified organism; G82.20 Paraplegia, unspecified; F41.9 Anxiety disorder, unspecified; F32.9 Major depressive disorder, single episode, unspecified; N31.9 Neuromuscular dysfunction of bladder, unspecified; F25.9 Schizoaffective disorder, unspecified; K59.03 Drug induced constipation; T40.2X5A Adverse effect of other opioids, initial encounter; R09.02 Hypoxemia; F17.200 Nicotine dependence, unspecified, uncomplicated; Z98.890 Other specified postprocedural states; Z88.1 Allergy status to other antibiotic agents
CPT/HCPCS: 36415; 36416; 71045; 71046; 74022; 80048; 80053; 81015; 85025; 87040; 87086; 97602; Q0162; Q0169

== ENCOUNTER 2018-07-11 10:31 | Inpatient (IN) | payer OTHER ==
[2018-07-11] MEDS ORDERED: Polyethylene Glycol 3350 17 GM Packet PO PRN (15:23)
[2018-07-11] MEDS ORDERED: Magnesium Citrate 300 ML BOT PO PRN (15:23)
[2018-07-11] MEDS ORDERED: Promethazine 25 MG TAB PO PRN (15:24)
[2018-07-11] MEDS ORDERED: Acetaminophen 325 MG TAB PO PRN (15:32)
[2018-07-11] MEDS ORDERED: Dicyclomine 20 MG TAB PO PRN (15:33)
[2018-07-11] MEDS: Loratadine 10 MG TAB PO SCH (15:49)
[2018-07-11] MEDS: METHadone HCl 10 MG TAB PO SCH ×2 (18:51→23:52)
[2018-07-11] MEDS: Lorazepam 0.5 MG TAB PO SCH (20:30)
[2018-07-11] MEDS: DULoxetine 30 MG CAP PO SCH (20:31)
[2018-07-11] MEDS: Famotidine 20 MG TAB PO SCH (20:32)
[2018-07-11] MEDS: Mirtazapine 15 MG TAB PO SCH (20:32)
[2018-07-11] MEDS: Zolpidem Tartrate 5 MG TAB PO PRN (20:32)
[2018-07-11] MEDS: Gabapentin 300 MG CAP PO SCH (20:32)
[2018-07-11] MEDS: hydrOXYzine 25 MG TAB PO SCH (20:32)
[2018-07-12] MEDS: METHadone HCl 10 MG TAB PO SCH ×4 (05:25→23:48)
[2018-07-12] MEDS: DULoxetine 30 MG CAP PO SCH ×2 (08:49→20:51)
[2018-07-12] MEDS: Lorazepam 0.5 MG TAB PO SCH ×3 (08:49→20:52)
[2018-07-12] MEDS: Docusate 100 MG CAP PO SCH (08:50)
[2018-07-12] MEDS: hydrOXYzine 25 MG TAB PO SCH ×2 (08:50→20:52)
[2018-07-12] MEDS: Famotidine 20 MG TAB PO SCH ×2 (08:50→20:52)
[2018-07-12] MEDS: Gabapentin 300 MG CAP PO SCH ×3 (08:50→20:52)
[2018-07-12] MEDS: Potassium Chloride 20 MEQ TAB PO SCH (08:50)
[2018-07-12] MEDS: Fluticasone Propionate Nasal Spray 16 gm Bottle NASAL SCH (08:53)
[2018-07-12] MEDS: Loratadine 10 MG TAB PO SCH (14:48)
[2018-07-12] MEDS: Mirtazapine 15 MG TAB PO SCH (20:51)
[2018-07-12] MEDS: Zolpidem Tartrate 5 MG TAB PO PRN (20:52)
[2018-07-13] MEDS: Ibuprofen 200 MG TAB PO PRN (03:23)
[2018-07-13] MEDS: Fluticasone Propionate Nasal Spray 16 gm Bottle NASAL SCH (03:28)
[2018-07-13] MEDS: METHadone HCl 10 MG TAB PO SCH ×3 (05:20→17:39)
[2018-07-13] MEDS: Lorazepam 0.5 MG TAB PO SCH ×3 (08:00→21:08)
[2018-07-13] MEDS: Famotidine 20 MG TAB PO SCH ×2 (08:01→21:08)
[2018-07-13] MEDS: Potassium Chloride 20 MEQ TAB PO SCH (08:01)
[2018-07-13] MEDS: DULoxetine 30 MG CAP PO SCH ×2 (08:01→21:07)
[2018-07-13] MEDS: Docusate 100 MG CAP PO SCH (08:01)
[2018-07-13] MEDS: Gabapentin 300 MG CAP PO SCH ×3 (08:02→21:07)
[2018-07-13] MEDS: hydrOXYzine 25 MG TAB PO SCH ×2 (08:02→21:07)
[2018-07-13] MEDS: Loratadine 10 MG TAB PO SCH (15:31)
[2018-07-13] MEDS: Zolpidem Tartrate 5 MG TAB PO PRN (21:07)
[2018-07-13] MEDS: Mirtazapine 15 MG TAB PO SCH (21:07)
[2018-07-14] MEDS: METHadone HCl 10 MG TAB PO SCH ×5 (00:01→23:56)
[2018-07-14] MEDS: Ibuprofen 200 MG TAB PO PRN (01:52)
[2018-07-14] MEDS: hydrOXYzine 25 MG TAB PO SCH ×2 (09:33→20:50)
[2018-07-14] MEDS: Famotidine 20 MG TAB PO SCH ×2 (09:33→20:50)
[2018-07-14] MEDS: Potassium Chloride 20 MEQ TAB PO SCH (09:34)
[2018-07-14] MEDS: DULoxetine 30 MG CAP PO SCH ×2 (09:34→20:49)
[2018-07-14] MEDS: Lorazepam 0.5 MG TAB PO SCH ×3 (09:34→20:49)
[2018-07-14] MEDS: Docusate 100 MG CAP PO SCH (09:34)
[2018-07-14] MEDS: Gabapentin 300 MG CAP PO SCH ×3 (09:34→20:50)
[2018-07-14] MEDS: Fluticasone Propionate Nasal Spray 16 gm Bottle NASAL SCH (12:32)
[2018-07-14] MEDS: Loratadine 10 MG TAB PO SCH (14:58)
[2018-07-14] MEDS: Zolpidem Tartrate 5 MG TAB PO PRN (20:50)
[2018-07-14] MEDS: Mirtazapine 15 MG TAB PO SCH (20:50)
[2018-07-15] MEDS: METHadone HCl 10 MG TAB PO SCH ×3 (05:00→17:35)
[2018-07-15] MEDS: Gabapentin 300 MG CAP PO SCH ×3 (08:53→21:11)
[2018-07-15] MEDS: Potassium Chloride 20 MEQ TAB PO SCH (08:53)
[2018-07-15] MEDS: Lorazepam 0.5 MG TAB PO SCH ×3 (08:53→21:12)
[2018-07-15] MEDS: Famotidine 20 MG TAB PO SCH ×2 (08:53→21:11)
[2018-07-15] MEDS: DULoxetine 30 MG CAP PO SCH ×2 (08:54→21:11)
[2018-07-15] MEDS: Docusate 100 MG CAP PO SCH (08:54)
[2018-07-15] MEDS: hydrOXYzine 25 MG TAB PO SCH ×2 (08:54→21:11)
[2018-07-15] MEDS: Fluticasone Propionate Nasal Spray 16 gm Bottle NASAL SCH (08:55)
[2018-07-15] MEDS: Loratadine 10 MG TAB PO SCH (15:30)
[2018-07-15] MEDS: Mirtazapine 15 MG TAB PO SCH (21:11)
[2018-07-15] MEDS: Zolpidem Tartrate 5 MG TAB PO PRN (21:11)
[2018-07-16] MEDS: METHadone HCl 10 MG TAB PO SCH ×4 (00:05→17:11)
[2018-07-16] MEDS: hydrOXYzine 25 MG TAB PO SCH ×2 (08:37→20:25)
[2018-07-16] MEDS: Docusate 100 MG CAP PO SCH (08:37)
[2018-07-16] MEDS: Potassium Chloride 20 MEQ TAB PO SCH (08:37)
[2018-07-16] MEDS: Gabapentin 300 MG CAP PO SCH ×3 (08:37→20:25)
[2018-07-16] MEDS: DULoxetine 30 MG CAP PO SCH ×2 (08:37→20:25)
[2018-07-16] MEDS: Lorazepam 0.5 MG TAB PO SCH ×3 (08:37→20:25)
[2018-07-16] MEDS: Famotidine 20 MG TAB PO SCH ×2 (08:37→20:25)
[2018-07-16] MEDS: Fluticasone Propionate Nasal Spray 16 gm Bottle NASAL SCH (08:38)
[2018-07-16] MEDS: Ibuprofen 200 MG TAB PO PRN (14:42)
[2018-07-16] MEDS: Loratadine 10 MG TAB PO SCH (14:42)
[2018-07-16] MEDS: Mirtazapine 15 MG TAB PO SCH (20:25)
[2018-07-16] MEDS: Zolpidem Tartrate 5 MG TAB PO PRN (20:25)
[2018-07-17] MEDS: Ibuprofen 200 MG TAB PO PRN ×2 (04:00→12:54)
[2018-07-17] MEDS: METHadone HCl 10 MG TAB PO SCH ×4 (05:46→17:17)
[2018-07-17] MEDS: Gabapentin 300 MG CAP PO SCH ×3 (08:46→21:16)
[2018-07-17] MEDS: DULoxetine 30 MG CAP PO SCH ×2 (08:46→21:17)
[2018-07-17] MEDS: Potassium Chloride 20 MEQ TAB PO SCH (08:46)
[2018-07-17] MEDS: Famotidine 20 MG TAB PO SCH ×2 (08:47→21:16)
[2018-07-17] MEDS: Lorazepam 0.5 MG TAB PO SCH ×3 (08:47→21:17)
[2018-07-17] MEDS: Fluticasone Propionate Nasal Spray 16 gm Bottle NASAL SCH (08:47)
[2018-07-17] MEDS: hydrOXYzine 25 MG TAB PO SCH ×2 (08:47→21:16)
[2018-07-17] MEDS: Docusate 100 MG CAP PO SCH (08:47)
[2018-07-17] MEDS: Zolpidem Tartrate 5 MG TAB PO PRN (21:17)
[2018-07-17] MEDS: Mirtazapine 15 MG TAB PO SCH (21:17)
[2018-07-18] MEDS: METHadone HCl 10 MG TAB PO SCH ×5 (00:02→23:15)
[2018-07-18] MEDS: Fluticasone Propionate Nasal Spray 16 gm Bottle NASAL SCH (08:12)
[2018-07-18] MEDS: Potassium Chloride 20 MEQ TAB PO SCH (08:13)
[2018-07-18] MEDS: Docusate 100 MG CAP PO SCH (08:13)
[2018-07-18] MEDS: DULoxetine 30 MG CAP PO SCH ×2 (08:13→20:35)
[2018-07-18] MEDS: Lorazepam 0.5 MG TAB PO SCH ×3 (08:13→20:35)
[2018-07-18] MEDS: hydrOXYzine 25 MG TAB PO SCH ×2 (08:13→20:35)
[2018-07-18] MEDS: Gabapentin 300 MG CAP PO SCH ×3 (08:13→20:35)
[2018-07-18] MEDS: Famotidine 20 MG TAB PO SCH ×2 (08:14→20:34)
[2018-07-18] MEDS: Loratadine 10 MG TAB PO PRN (15:02)
[2018-07-18] MEDS: Mirtazapine 15 MG TAB PO SCH (20:35)
[2018-07-18] MEDS: Zolpidem Tartrate 5 MG TAB PO PRN (20:35)
[2018-07-18] MEDS: Ibuprofen 200 MG TAB PO PRN (23:16)
[2018-07-19] MEDS: METHadone HCl 10 MG TAB PO SCH ×3 (06:04→17:56)
[2018-07-19] MEDS: DULoxetine 30 MG CAP PO SCH ×2 (09:15→20:10)
[2018-07-19] MEDS: Gabapentin 300 MG CAP PO SCH ×3 (09:16→20:09)
[2018-07-19] MEDS: Potassium Chloride 20 MEQ TAB PO SCH (09:16)
[2018-07-19] MEDS: hydrOXYzine 25 MG TAB PO SCH ×2 (09:16→20:10)
[2018-07-19] MEDS: Famotidine 20 MG TAB PO SCH ×2 (09:16→20:10)
[2018-07-19] MEDS: Docusate 100 MG CAP PO SCH (09:16)
[2018-07-19] MEDS: Lorazepam 0.5 MG TAB PO SCH ×3 (09:17→20:09)
[2018-07-19] MEDS: Fluticasone Propionate Nasal Spray 16 gm Bottle NASAL SCH (09:21)
[2018-07-19] MEDS: Zolpidem Tartrate 5 MG TAB PO PRN (20:09)
[2018-07-19] MEDS: Mirtazapine 15 MG TAB PO SCH (20:10)
[2018-07-20] MEDS: METHadone HCl 10 MG TAB PO SCH ×5 (00:05→23:55)
[2018-07-20] MEDS: DULoxetine 30 MG CAP PO SCH ×2 (09:06→20:49)
[2018-07-20] MEDS: Docusate 100 MG CAP PO SCH (09:06)
[2018-07-20] MEDS: Lorazepam 0.5 MG TAB PO SCH ×3 (09:06→20:49)
[2018-07-20] MEDS: Gabapentin 300 MG CAP PO SCH ×3 (09:06→20:50)
[2018-07-20] MEDS: Potassium Chloride 20 MEQ TAB PO SCH (09:06)
[2018-07-20] MEDS: Famotidine 20 MG TAB PO SCH ×2 (09:06→20:49)
[2018-07-20] MEDS: hydrOXYzine 25 MG TAB PO SCH ×2 (09:07→20:49)
[2018-07-20] MEDS: Fluticasone Propionate Nasal Spray 16 gm Bottle NASAL SCH (09:09)
[2018-07-20] MEDS: Ibuprofen 200 MG TAB PO PRN (10:21)
[2018-07-20] MEDS: Zolpidem Tartrate 5 MG TAB PO PRN (20:49)
[2018-07-20] MEDS: Mirtazapine 15 MG TAB PO SCH (20:50)
[2018-07-21] MEDS: METHadone HCl 10 MG TAB PO SCH ×4 (05:12→23:51)
[2018-07-21] MEDS ORDERED: Lorazepam 0.5 MG TAB ONE (08:07)
[2018-07-21] MEDS: Lorazepam 0.5 MG TAB PO SCH ×3 (08:19→20:34)
[2018-07-21] MEDS: DULoxetine 30 MG CAP PO SCH ×2 (08:19→20:33)
[2018-07-21] MEDS: Docusate 100 MG CAP PO SCH (08:20)
[2018-07-21] MEDS: Fluticasone Propionate Nasal Spray 16 gm Bottle NASAL SCH (08:20)
[2018-07-21] MEDS: Potassium Chloride 20 MEQ TAB PO SCH (08:20)
[2018-07-21] MEDS: Gabapentin 300 MG CAP PO SCH ×3 (08:20→20:34)
[2018-07-21] MEDS: Famotidine 20 MG TAB PO SCH ×2 (08:20→20:34)
[2018-07-21] MEDS: hydrOXYzine 25 MG TAB PO SCH ×2 (08:20→20:34)
[2018-07-21] MEDS: Mirtazapine 15 MG TAB PO SCH (20:34)
[2018-07-21] MEDS: Zolpidem Tartrate 5 MG TAB PO PRN (20:34)
[2018-07-21] MEDS: Loratadine 10 MG TAB PO PRN (23:55)
[2018-07-22] MEDS: Ibuprofen 200 MG TAB PO PRN ×2 (04:39→13:40)
[2018-07-22] MEDS: METHadone HCl 10 MG TAB PO SCH ×4 (05:01→23:39)
[2018-07-22] MEDS: Lorazepam 0.5 MG TAB PO SCH ×3 (08:11→20:32)
[2018-07-22] MEDS: Gabapentin 300 MG CAP PO SCH ×3 (08:11→20:32)
[2018-07-22] MEDS: Docusate 100 MG CAP PO SCH (08:11)
[2018-07-22] MEDS: Potassium Chloride 20 MEQ TAB PO SCH (08:11)
[2018-07-22] MEDS: Famotidine 20 MG TAB PO SCH ×2 (08:11→20:31)
[2018-07-22] MEDS: DULoxetine 30 MG CAP PO SCH ×2 (08:11→20:31)
[2018-07-22] MEDS: Fluticasone Propionate Nasal Spray 16 gm Bottle NASAL SCH (08:11)
[2018-07-22] MEDS: hydrOXYzine 25 MG TAB PO SCH ×2 (08:11→20:32)
[2018-07-22] MEDS: Zolpidem Tartrate 5 MG TAB PO PRN (20:31)
[2018-07-22] MEDS: Mirtazapine 15 MG TAB PO SCH (20:32)
[2018-07-23] MEDS: METHadone HCl 10 MG TAB PO SCH ×3 (05:33→17:24)
[2018-07-23] MEDS: Potassium Chloride 20 MEQ TAB PO SCH (08:53)
[2018-07-23] MEDS: Docusate 100 MG CAP PO SCH (08:53)
[2018-07-23] MEDS: DULoxetine 30 MG CAP PO SCH ×2 (08:53→20:46)
[2018-07-23] MEDS: Famotidine 20 MG TAB PO SCH ×2 (08:54→20:45)
[2018-07-23] MEDS: Gabapentin 300 MG CAP PO SCH ×3 (08:54→20:46)
[2018-07-23] MEDS: Fluticasone Propionate Nasal Spray 16 gm Bottle NASAL SCH (08:54)
[2018-07-23] MEDS: hydrOXYzine 25 MG TAB PO SCH ×2 (08:54→20:46)
[2018-07-23] MEDS: Lorazepam 0.5 MG TAB PO SCH ×3 (08:54→20:46)
[2018-07-23] MEDS: Ibuprofen 200 MG TAB PO PRN (11:06)
[2018-07-23] MEDS: Zolpidem Tartrate 5 MG TAB PO PRN (20:46)
[2018-07-23] MEDS: Mirtazapine 15 MG TAB PO SCH (20:47)
[2018-07-24] MEDS: METHadone HCl 10 MG TAB PO SCH ×5 (00:04→23:59)
[2018-07-24] MEDS: Famotidine 20 MG TAB PO SCH ×2 (09:02→20:39)
[2018-07-24] MEDS: Fluticasone Propionate Nasal Spray 16 gm Bottle NASAL SCH (09:02)
[2018-07-24] MEDS: DULoxetine 30 MG CAP PO SCH ×2 (09:02→20:38)
[2018-07-24] MEDS: Lorazepam 0.5 MG TAB PO SCH ×3 (09:02→20:39)
[2018-07-24] MEDS: Potassium Chloride 20 MEQ TAB PO SCH (09:02)
[2018-07-24] MEDS: hydrOXYzine 25 MG TAB PO SCH ×2 (09:02→20:38)
[2018-07-24] MEDS: Docusate 100 MG CAP PO SCH (09:02)
[2018-07-24] MEDS: Gabapentin 300 MG CAP PO SCH ×3 (09:02→20:38)
[2018-07-24] MEDS: Ibuprofen 200 MG TAB PO PRN (17:14)
[2018-07-24] MEDS: Zolpidem Tartrate 5 MG TAB PO PRN (20:38)
[2018-07-24] MEDS: Mirtazapine 15 MG TAB PO SCH (20:39)
[2018-07-25] MEDS: METHadone HCl 10 MG TAB PO SCH ×3 (05:02→17:28)
[2018-07-25] MEDS: Potassium Chloride 20 MEQ TAB PO SCH (08:00)
[2018-07-25] MEDS: Famotidine 20 MG TAB PO SCH ×2 (08:54→20:07)
[2018-07-25] MEDS: Lorazepam 0.5 MG TAB PO SCH ×3 (08:55→20:07)
[2018-07-25] MEDS: hydrOXYzine 25 MG TAB PO SCH ×2 (08:55→20:08)
[2018-07-25] MEDS: DULoxetine 30 MG CAP PO SCH ×2 (08:56→20:07)
[2018-07-25] MEDS: Gabapentin 300 MG CAP PO SCH ×3 (08:56→20:07)
[2018-07-25] MEDS: Docusate 100 MG CAP PO SCH (08:56)
[2018-07-25] MEDS: Fluticasone Propionate Nasal Spray 16 gm Bottle NASAL SCH (08:58)
[2018-07-25 10:16] VITALS: BMI 30.9
[2018-07-25] MEDS: Mirtazapine 15 MG TAB PO SCH (20:08)
[2018-07-25] MEDS: Zolpidem Tartrate 5 MG TAB PO PRN (20:08)
[2018-07-26] MEDS: METHadone HCl 10 MG TAB PO SCH ×4 (10:49→23:52)
[2018-07-26] MEDS: Potassium Chloride 20 MEQ TAB PO SCH (12:27)
[2018-07-26] MEDS: Docusate 100 MG CAP PO SCH (12:28)
[2018-07-26] MEDS: DULoxetine 30 MG CAP PO SCH ×2 (12:29→20:39)
[2018-07-26] MEDS: Famotidine 20 MG TAB PO SCH ×2 (12:29→20:40)
[2018-07-26] MEDS: Fluticasone Propionate Nasal Spray 16 gm Bottle NASAL SCH (12:30)
[2018-07-26] MEDS: Gabapentin 300 MG CAP PO SCH ×3 (12:30→20:40)
[2018-07-26] MEDS: hydrOXYzine 25 MG TAB PO SCH ×2 (12:31→20:40)
[2018-07-26] MEDS: Lorazepam 0.5 MG TAB PO SCH ×3 (12:31→20:40)
[2018-07-26] MEDS: Mirtazapine 15 MG TAB PO SCH (20:39)
[2018-07-26] MEDS: Zolpidem Tartrate 5 MG TAB PO PRN (20:39)
[2018-07-27] MEDS: METHadone HCl 10 MG TAB PO SCH ×4 (06:06→23:57)
[2018-07-27] MEDS: Ibuprofen 200 MG TAB PO PRN (07:48)
[2018-07-27] MEDS: hydrOXYzine 25 MG TAB PO SCH ×2 (08:44→21:06)
[2018-07-27] MEDS: Gabapentin 300 MG CAP PO SCH ×3 (08:44→21:05)
[2018-07-27] MEDS: Docusate 100 MG CAP PO SCH (08:44)
[2018-07-27] MEDS: Famotidine 20 MG TAB PO SCH ×2 (08:44→21:05)
[2018-07-27] MEDS: Lorazepam 0.5 MG TAB PO SCH ×3 (08:45→21:05)
[2018-07-27] MEDS: Potassium Chloride 20 MEQ TAB PO SCH (08:45)
[2018-07-27] MEDS: Fluticasone Propionate Nasal Spray 16 gm Bottle NASAL SCH (08:46)
[2018-07-27] MEDS: DULoxetine 30 MG CAP PO SCH ×2 (10:37→21:05)
[2018-07-27] MEDS: Zolpidem Tartrate 5 MG TAB PO PRN (21:06)
[2018-07-27] MEDS: Mirtazapine 15 MG TAB PO SCH (21:06)
[2018-07-28] MEDS: METHadone HCl 10 MG TAB PO SCH ×3 (06:33→17:19)
[2018-07-28] MEDS: Potassium Chloride 20 MEQ TAB PO SCH (09:10)
[2018-07-28] MEDS: DULoxetine 30 MG CAP PO SCH ×2 (09:11→20:55)
[2018-07-28] MEDS: Docusate 100 MG CAP PO SCH (09:11)
[2018-07-28] MEDS: Famotidine 20 MG TAB PO SCH ×2 (09:12→20:55)
[2018-07-28] MEDS: Gabapentin 300 MG CAP PO SCH ×3 (09:12→20:56)
[2018-07-28] MEDS: hydrOXYzine 25 MG TAB PO SCH ×2 (09:13→20:55)
[2018-07-28] MEDS: Lorazepam 0.5 MG TAB PO SCH ×3 (09:13→20:55)
[2018-07-28] MEDS: Loratadine 10 MG TAB PO PRN (09:16)
[2018-07-28] MEDS: Fluticasone Propionate Nasal Spray 16 gm Bottle NASAL SCH (12:08)
[2018-07-28] MEDS: Zolpidem Tartrate 5 MG TAB PO PRN (20:55)
[2018-07-28] MEDS: Mirtazapine 15 MG TAB PO SCH (20:56)
[2018-07-29] MEDS: METHadone HCl 10 MG TAB PO SCH ×5 (00:13→23:56)
[2018-07-29] MEDS: Lorazepam 0.5 MG TAB PO SCH ×3 (09:18→21:35)
[2018-07-29] MEDS: Famotidine 20 MG TAB PO SCH ×2 (09:18→21:35)
[2018-07-29] MEDS: Docusate 100 MG CAP PO SCH (09:18)
[2018-07-29] MEDS: Potassium Chloride 20 MEQ TAB PO SCH (09:18)
[2018-07-29] MEDS: DULoxetine 30 MG CAP PO SCH ×2 (09:19→21:34)
[2018-07-29] MEDS: hydrOXYzine 25 MG TAB PO SCH ×2 (09:19→21:34)
[2018-07-29] MEDS: Gabapentin 300 MG CAP PO SCH ×3 (09:19→21:34)
[2018-07-29] MEDS: Fluticasone Propionate Nasal Spray 16 gm Bottle NASAL SCH (09:22)
[2018-07-29] MEDS: Zolpidem Tartrate 5 MG TAB PO PRN (21:34)
[2018-07-29] MEDS: Mirtazapine 15 MG TAB PO SCH (21:35)
[2018-07-30] MEDS: METHadone HCl 10 MG TAB PO SCH ×3 (05:01→17:20)
[2018-07-30] MEDS: Lorazepam 0.5 MG TAB PO SCH ×3 (09:04→20:30)
[2018-07-30] MEDS: Gabapentin 300 MG CAP PO SCH ×3 (09:05→20:30)
[2018-07-30] MEDS: DULoxetine 30 MG CAP PO SCH ×2 (09:05→20:30)
[2018-07-30] MEDS: hydrOXYzine 25 MG TAB PO SCH ×2 (09:05→20:30)
[2018-07-30] MEDS: Docusate 100 MG CAP PO SCH (09:05)
[2018-07-30] MEDS: Potassium Chloride 20 MEQ TAB PO SCH (09:05)
[2018-07-30] MEDS: Famotidine 20 MG TAB PO SCH ×2 (09:05→20:30)
[2018-07-30] MEDS: Fluticasone Propionate Nasal Spray 16 gm Bottle NASAL SCH (09:06)
[2018-07-30] MEDS: Zolpidem Tartrate 5 MG TAB PO PRN (20:30)
[2018-07-30] MEDS: Mirtazapine 15 MG TAB PO SCH (20:30)
[2018-07-31] MEDS: METHadone HCl 10 MG TAB PO SCH ×2 (00:12→05:44)
[2018-07-31 06:17] VITALS: BP 119/73; TEMP 97.6
[2018-07-31] MEDS: Lorazepam 0.5 MG TAB PO SCH (08:11)
[2018-07-31] MEDS: Docusate 100 MG CAP PO SCH (08:11)
[2018-07-31] MEDS: Potassium Chloride 20 MEQ TAB PO SCH (08:11)
[2018-07-31] MEDS: hydrOXYzine 25 MG TAB PO SCH (08:11)
[2018-07-31] MEDS: Gabapentin 300 MG CAP PO SCH (08:12)
[2018-07-31] MEDS: Famotidine 20 MG TAB PO SCH (08:12)
[2018-07-31] MEDS: DULoxetine 30 MG CAP PO SCH (08:12)
[2018-07-31] MEDS: Fluticasone Propionate Nasal Spray 16 gm Bottle NASAL SCH (08:12)
--- NOTE | 2018-08-01 09:33 | DIS ---
DATE OF ADMISSION: 07/11/2018 DATE OF DISCHARGE: 07/31/2018 ADMISSION DIAGNOSES: 1. Infected stage IV sacral decubitus ulcer. 2. Paraplegia with neurogenic bladder. 3. Chronic neuropathic pain. 4. Anxiety. 5. Depression. 6. Schizophrenia. 7. Insomnia. 8. Opioid-induced constipation. PROCEDURES: Wound VAC care. HOSPITAL COURSE: A 37-year-old paraplegic male, who was directly admitted for an infected stage IV sacral decubitus ulcer. The patient had an extended stay as it was the family's request to have this sacral decubitus ulcer completely closed prior to discharging home. The patient received IV antibiotic care and wound VAC and eventually transitioned to simple daily wound care. His stay was complicated by development of a nosocomial pneumonia which again required antibiotic treatment. He also notably had opioid-induced constipation; the patient has been on chronic methadone treatment secondary to his chronic pain, which was the nidus for this issue. This was resolved with initiation of daily Movantik. During the patient's stay, his medications for anxiety, depression, and schizophrenia were modified; in addition to this, he was seen by counseling on multiple occasions in relation to family stressors. The patient showed gradual improvement throughout his stay and has achieved the goal requested for closure of the sacral decubitus ulcer. He is now ready for transition to home, where he will be staying with his parents locally. The patient was hospitalized in 2018 and treated for similar circumstances. Due to this, he has been set up for hospital bed with specialty mattress in hopes to prevent further admissions for similar circumstances in the future. The patient feels well at this time, and he is appropriate for discharge to home. DISPOSITION: The patient will be discharged to home to live with his parents. He may follow up with myself in the clinic in 1 week. He may further follow up with the pain care provider from whom he is receiving methadone treatment as scheduled. The patient will have [facility] for further transition of care. DISCHARGE MEDICATIONS: Include, 1. Cymbalta 60 mg daily. 2. Gabapentin 300 mg p.o. t.i.d. 3. Hydroxyzine 25 mg p.o. b.i.d. 4. Lorazepam 1 mg p.o. t.i.d. 5. Methadone 20 mg p.o. q.6 hours. 6. Mirtazapine p.o. nightly. 7. Movantik 25 mg p.o. daily. 8. Potassium chloride 20 mEq p.o. daily. 9. Seroquel 100 mg p.o. nightly. 10. Ambien 10 mg p.o. nightly. Job ID: [id number]
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
== END 2018-07-31 10:44 | disposition home or self-care (01) | DRG 592 ==
LOC: UNDOADMIN 13:05 → BURMED 13:05
PROVIDERS: ADMIT Family Medicine; ATTEND Family Medicine
DX: L89.154 Pressure ulcer of sacral region, stage 4 (principal); J18.9 Pneumonia, unspecified organism; G82.20 Paraplegia, unspecified; N31.9 Neuromuscular dysfunction of bladder, unspecified; G89.29 Other chronic pain; M79.2 Neuralgia and neuritis, unspecified; F41.9 Anxiety disorder, unspecified; F32.9 Major depressive disorder, single episode, unspecified; F20.9 Schizophrenia, unspecified; G47.00 Insomnia, unspecified; K59.03 Drug induced constipation; T40.2X5A Adverse effect of other opioids, initial encounter; Y95 Nosocomial condition
CPT/HCPCS: Q0169

== ENCOUNTER 2018-08-05 13:28 | Emergency (ER) | payer MEDICARE ==
--- NOTE | 2018-08-05 22:56 | RAD ---
LEFT ANKLE THREE VIEWS: 08/05/2018 FINDINGS: Fractures of the distal tibia and the distal fibula are both present. The distal fibular fracture is an oblique fracture that is near the malleolus. The tibial fracture is slightly more complex, but i s near the junction of the distal tibial shaft and the tibial plafond. It does not appear to extend into the joint, but there is some slight widening of the medial joint space. There is slight medial angulation of the tibial and fibular fractures. The soft tissues are rather edematous. IMPRESSION: Fractures of the distal tibia and fibula, with slight medial angulation of the distal fragments. POS: HOME
--- NOTE | 2018-08-05 22:58 | RAD ---
LEFT FOOT THREE VIEWS: 08/05/2018 FINDINGS: The fractures of the distal tibia and fibular are noted. See ankle film for details. These films of the foot show quite a bit of swelling in the forefoot, dorsally. No fractures on the foot proper were appreciated. The great toe shows some flexion at the IP joint. The bones here are not seen optimally. IMPRESSION: Ankle fractures, as noted on separate report. No foot fracture is seen. POS: HOME
== END 2018-08-05 14:28 | disposition home or self-care (01) ==
LOC: BURERS 13:28
DX: S82.302A Unspecified fracture of lower end of left tibia, initial encounter for closed fracture (principal); S82.832A Other fracture of upper and lower end of left fibula, initial encounter for closed fracture; I10 Essential (primary) hypertension; F32.9 Major depressive disorder, single episode, unspecified; F20.9 Schizophrenia, unspecified; F17.290 Nicotine dependence, other tobacco product, uncomplicated; X58.XXXA Exposure to other specified factors, initial encounter; Z79.899 Other long term (current) drug therapy
CPT/HCPCS: 29515